=== PATIENT | male | born 1980 | race Caucasian/White ===

== ENCOUNTER 2025-04-08 06:18 | Emergency (ER) | payer SELFPAY ==
[2025-04-08 06:19] VITALS: BP 110/56; PULSE 63; RESP 16; TEMP 37.1; O2SAT 100
[2025-04-08 06:21] VITALS: BP 110/56; PULSE 64; RESP 16; TEMP 37.1; O2SAT 100
--- NOTE | 2025-04-08 06:31 | ED.VIS.DENTA ---
HPI History of Present Illness Chief Complaint: Dental Informant: patient Onset/Context/Timing Onset: Today Context: Gradual Onset Timing: Continuous Quality: Dull, aching Location: Right lower molar Worsened by: Cold liquids Relieved by: - (Nothing) Associated Symptoms Assocated Symptom - Dental: cold sensitivity; Negative for fever, jaw swelling, face swelling or hot sensitivity Narrative Narrative: Patient presents with right lower dental pain that began today. Patient states the pain is dull and aching. Patient states it is over the right lower molars. Patient states it is worse with drinking cold liquids. Patient states nothing makes it better. Patient denies any fevers or chills. Patient denies any jaw swelling. Patient states he does not have a dentist. Patient denies any difficulty breathing or difficulty swallowing. [facility] Medical History (Updated 04/08/25 @ 06:[address] Alan Parker DO) Wtvsi-Ubecjaopk-Styio (WPW) syndrome Home Medications ?Medication ?Instructions ?Recorded ?Last Taken ?Type penicillin V potassium 500 mg 500 mg PO 4X/DAY #40 tabs 04/08/25 Unknown Rx tablet Allergy/AdvReac Type Severity Reaction Status Date / Time No Known Allergies Allergy Verified 04/08/25 06:18 Family History no significant family his Surgical History no surgical history no surgical history Social History (Updated 04/08/25 @ 06:[address] Alan Parker DO) Smoking Status: Current every day smoker tobacco type: cigarettes alcohol intake: current alcohol intake frequency: holidays/special occasions only ROS ROS ED Constitutional Constitutional ED: Denies chills or fever(s) Eyes Eyes: Denies blurry vision or change in vision ENT ENT ED: Denies rhinorrhea or sore throat Cardiovascular Cardiovascular: Denies chest pain or palpitations Respiratory/Chest Respiratory/Chest: Denies cough or dyspnea Gastrointestinal Gastrointestinal: Denies nausea or vomiting Genitourinary Genitourinary ED: Denies dysuria or hematuria Musculoskeletal Musculoskeletal: Denies back pain or neck pain Integumentary Denies abscess or rash Neurologic Neurologic: Denies headache(s) or weakness Allergic/Immunologic Allergic/Immunologic ED: Denies mouth swelling or urticaria EXAM Physical Exam Const Vital Signs: 04/08/25 06:19 04/08/25 06:21 Temperature 98.7 F 98.7 F Temperature Source Oral Oral Pulse Rate 63 64 Respiratory Rate 16 16 Blood Pressure 110/56 L 110/56 L Blood Pressure Mean 74 74 Pulse Ox 100 100 Oxygen Delivery Method Room Air Room Air Positive well nourished and well developed General Appearance ED: well developed and NAD HEENT HEENT Narrative: There is a large dental carry noted over the right lower second molar. There is some gingival edema around this tooth. There is tenderness to palpation over this tooth. There is no sublingual edema or erythema. There is no evidence of Henrik's angina. Oropharynx is clear. Airway is patent. Mouth ED: Yes oral and palatal mucosa normal Mouth: oral and palatal mucosa normal Teeth and Gingiva: caries and gingiva abnormal Positive for gingival edema Throat: posterior oropharynx normal Eyes PERRL and EOMs intact bilaterally Neck supple and no JVD General: Negative for anterior neck swelling, tenderness or submandibular swelling Neuro oriented x3, CN's II-XII intact bilaterally, moves all extremities, no focal motor deficits and no sensory deficits noted Sensorium / Orientation: alert Motor Exam: strength 5/5 throughout Psych mental status grossly normal MDM MDM MDM Narrative Medical decision making narrative: Patient was advised that this is most likely infected dental carry. Patient was given prescription for Pen-Vee K. Patient was instructed to take Tylenol or ibuprofen as needed for pain. Patient was instructed to follow-up with a dentist in 5 to 7 days. Patient was instructed to return if worse in any way. Patient understood and was agreeable with the plan. All questions were answered. Discharge Plan Triage Chief Complaint: Dental ED Provider: Alan Parker Dx/Rx/DC Orders Clinical Impression: Infected dental caries, Tobacco use Instructions: ED Dental Cavity Prescriptions: New penicillin V potassium 500 mg tablet 500 mg PO 4X/DAY Qty: 40 0RF Primary Care Provider: U Referrals: U [Other] [facility] [Outside] - 5-7 Days Print Language: Maori Disposition Disposition: Home, Self Care
[2025-04-08] MEDS: Penicillin Vk 250 MG Tablet 500 MG PO (06:54)
[2025-04-08] MEDS: Ibuprofen 400 MG Tablet 800 MG PO (06:54)
[2025-04-08 06:56] VITALS: BP 117/69; PULSE 62; RESP 16; TEMP 37.1; O2SAT 99
== END 2025-04-08 06:57 | disposition home or self-care (01) ==
LOC: ED 06:55
PROVIDERS: Emergency Provider Emergency Medicine; Visit Provider Emergency Medicine
DX: K02.9 Dental caries, unspecified (principal); F17.210 Nicotine dependence, cigarettes, uncomplicated
CPT/HCPCS: 99282

== ENCOUNTER 2025-05-07 05:42 | Emergency (ER) | payer SELFPAY ==
[2025-05-07] VITALS (7 sets, daily range): BP systolic 112–129; BP diastolic 67–85; PULSE 55–72; RESP 14–24; TEMP 36.5–36.7; O2SAT 98–100; BMI 24.7
--- NOTE | 2025-05-07 05:46 | EKG12_ITS ---
Test Reason : CHEST PAIN Blood Pressure : */* mmHG Vent. Rate : 67 BPM Atrial Rate : 67 BPM P-R Int : 116 ms QRS Dur : 136 ms QT Int : 446 ms P-R-T Axes : 28 38 34 degrees QTcB Int : 471 ms Normal sinus rhythm Rigxs-Frwtvrpgd-Seiql Abnormal ECG Confirmed by BRAN ARIZA, ELIZABETH ([id number]), senior editor MATT MAHARAJ ([id number]) on 05/11/2025 9:02:33 AM Referred By: DOMINIC Confirmed By: ELIZABETH SOTOMAYOR MD
--- NOTE | 2025-05-07 06:01 | EX.ED.DYSGE1 ---
HPI History of Present Illness Chief Complaint: Chest Pain Informant: patient Narrative Narrative: Patient is a 45-year-old male who reports a past medical history of Ztrzb-Arqysulyn-Fqkuj disease but states he does not take any daily medications. He states that he gets up early for work and lay down around 8 PM last night. He states as he was laying down he noticed he had a vague midsternal chest discomfort. He states there was no associated nausea vomiting diaphoresis or shortness of breath. He denied any radiation of the pain. He states it was minimal in nature and he was able to go to sleep. He states he awoke this morning and still noticed a vague sensation of discomfort. He was able to get ready for work and was driving into work when he felt like his symptoms worsened. He states despite the worsening sensation of pressure he did not experience any type of palpitations nausea vomiting diaphoresis or shortness of breath. He states because of the persistent nature and increased severity of symptoms he had concerned this could be cardiac and therefore comes in for evaluation. [facility] Medical History Ihlzc-Hvroyidau-Lswra (WPW) syndrome Home Medications Medication Instructions Recorded Last Taken Type NK 05/07/25 Unknown History Allergy/AdvReac Type Severity Reaction Status Date / Time No Known Allergies Allergy Verified 05/07/25 05:42 Surgical History no surgical history Social History (Updated 04/08/25 @ 06:[address] Alan Parker DO) Smoking Status: Current every day smoker tobacco type: cigarettes alcohol intake: current alcohol intake frequency: holidays/special occasions only ROS ROS ED Constitutional Constitutional ED: Denies chills or fever(s) ENT ENT ED: Denies rhinorrhea or sore throat Cardiovascular Cardiovascular: Reports chest pain; Denies palpitations or racing heartbeat Respiratory/Chest Respiratory/Chest: Reports cough; Denies dyspnea Gastrointestinal Gastrointestinal: Denies abdominal pain, diarrhea, nausea or vomiting Musculoskeletal Musculoskeletal: Denies back pain Integumentary Denies rash Neurologic Neurologic: Denies headache(s) Hematologic/Lymphatic Hematologic/Lymphatic: Denies easy bleeding or easy bruising EXAM Physical Exam Const Vital Signs: 05/07/25 05:44 05/07/25 05:49 05/07/25 06:00 Temperature 97.7 F L Temperature Source Oral Pulse Rate 66 72 67 Respiratory Rate 20 H 24 H 20 H Blood Pressure 129/67 H 115/73 Blood Pressure Mean 87 86 Pulse Ox 99 100 Oxygen Delivery Method Room Air 05/07/25 06:15 05/07/25 06:17 05/07/25 06:30 Temperature Temperature Source Pulse Rate 62 59 L Respiratory Rate 14 21 H Blood Pressure 112/73 117/78 Blood Pressure Mean 85 91 Pulse Ox 100 98 Oxygen Delivery Method Positive well nourished and well developed General Appearance ED: well developed; Negative for pallor HEENT HEENT Narrative: Normocephalic atraumatic No tongue or lip swelling no oral lesions no airway edema or compromise; no signs of infection noted in the posterior pharynx Eyes PERRL and EOMs intact bilaterally General Eye ED: Negative for scleral icterus Neck supple and no JVD Chest Wall Chest Narrative: There is mild pain with palpation in the anterior chest wall near the lower portion of the sternum without bony deformity or subcutaneous emphysema Resp normal respiratory effort and clear to auscultation bilaterally Resp Narrative: No nasal flaring retractions tachypnea or accessory muscle use Cardio regular rate and regular rhythm Rate: other Other Details: Regular rate and rhythm without murmurs rubs or gallop Radial and carotid pulses are equal and symmetric GI non-distended and no masses GI Narrative: Abdomen is soft and nondistended with normal active bowel sounds. There is mild pain with palpation in the midepigastric region without voluntary guarding or rigidity. No pulsatile mass or fluid wave Auscultation: normoactive bowel sounds Palpation: soft Extremity normal to inspection Extremity Narrative: No asymmetric edema no pitting edema negative Homans' sign bilaterally Neuro oriented x3, CN's II-XII intact bilaterally and no sensory deficits noted Sensorium / Orientation: alert Motor Exam: strength 5/5 throughout Psych mental status grossly normal Skin no rashes or lesions noted and no wounds Skin Narrative: No overlying soft tissue changes to suggest trauma or infection General Skin Exam: Negative for jaundice or pallor MDM MDM MDM Narrative Medical decision making narrative: Patient arrived to the ER with stable vitals and reported spontaneous improvement of his chest discomfort. With report of lower midsternal chest discomfort there is concern patient has acute coronary syndrome versus cardiac dysrhythmia versus gastritis versus pancreatitis versus pneumonia or pneumothorax. Secondary to his basic blood work was obtained. Troponin is less than 6 going against ACS especially as patient states he has had pain for multiple hours. 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 Blood work showed no clinically significant electrolyte abnormality. Lipase is normal going against acute pancreatitis. Patient's chest x-ray revealed a small bleb but no signs of pneumothorax or pneumonia or congestive heart. On reevaluation he is resting comfortably and he states he has had spontaneous improvement of his symptoms. Therefore I do not feel there is need for further evaluation in the ER. We did discuss obtaining a delta troponin but patient states that as his initial is as low as the test measures and he is not having discomfort at this time he does not want to wait for the repeat value. 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 History & Record Review Discussion w/independent historian: Patient Lab Data Attestation: I reviewed the patient's lab results. Labs: Laboratory Results - last 24 hr 05/07/25 05:45 WBC 10.0 RBC 5.32 Hgb 17.2 H Hct 49.8 MCV 93.6 MCH 32.3 H MCHC 34.5 RDW Std Deviation 42.1 RDW Coeff of Tiara 12.2 Plt Count 263 MPV 9.9 Immature Gran % (Auto) 0.200 Neut % (Auto) 53.7 Lymph % (Auto) 29.7 [place] % (Auto) 10.2 H Eos % (Auto) 5.4 H Baso % (Auto) 0.8 Absolute Neuts (auto) 5.4 Absolute Lymphs (auto) 2.97 Nucleated RBC % 0 Sodium 139 Potassium 4.2 Chloride 104 Carbon Dioxide 25.5 Anion Gap 10 BUN 18 Creatinine 1.02 Estim Creat Clear Calc 91.46 Est GFR (MDRD) Non-Af 92 BUN/Creatinine Ratio 17.6 Glucose 139 H Calcium 8.6 Magnesium 2.7 H Total Bilirubin 0.36 Direct Bilirubin 0.11 AST 25 ALT 24 Alkaline Phosphatase 63 Troponin T High Sens < 6 Total Protein 6.7 Albumin 4.2 Globulin 2.5 Lipase 31 Radiography Diagnostic Testin view chest x-ray is interpreted by the emergency medicine physician reveals a small bleb along the right middle/upper lobe without acute infiltrate pneumothorax or pleural effusion or widening of the mediastinum Discharge Plan Triage Chief Complaint: Chest Pain ED Provider: Willis Fernandez Dx/Rx/DC Orders Clinical Impression: Uomaw-Werjrmvvg-Crbvl (WPW) syndrome, Nonspecific chest pain, Tobacco use Instructions: Your Heart's Electrical System, ED Chest Pain, Uncertain Cause Prescriptions: No Action NK Stand Alone Forms: Work / School Excuse Primary Care Provider: Care Physician,No Primary Referrals: Emmanuel Jaimes MD [Med Staff - Active Staff] - Care Physician,No Primary [Primary Care Provider] - Activity Restrictions/Additional Instructions: Your workup today did not show any sign of acute/active heart disease/damage. 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 There were no signs of an abnormal rhythm while in the ER. You need to follow-up with cardiology and also have potential referral to an photo technician to discuss potential need for daily medication or radiofrequency ablation to ensure there is no unwanted side effects from your WPW. If your symptoms worsen or you have any further concerns please return to the ER for repeat evaluation Print Language: Nigerien Disposition Disposition: Home, Self Care
--- NOTE | 2025-05-07 06:09 | RAD_ITS ---
PROCEDURE: CHEST PA AND LATERAL 05/07/2025 REASON FOR EXAM: CHEST PAIN TECHNIQUE: CHEST PA AND LATERAL COMPARISON: None FINDINGS: Heart size and mediastinal configuration are within normal limits. There is no focal infiltrate or consolidation. There is no pneumothorax or effusion. There is no acute bony abnormality. There is no visible atherosclerosis. RAD/Chest PA and Lateral IMPRESSION: No acute process is identified in the chest. Reading Location: [facility]
[2025-05-07 06:11] LABS: Hematocrit 49.8 % (40-54); Hemoglobin 17.2 g/dL (13.0-16.5); Immature Granulocytes Count 0.020 X10^3/uL (0.0-0.0); Mean Corp Hgb Conc 34.5 g/dL (32-36); Mean Corpuscular Volume 93.6 fL (80-94); Mean Platelet Vol. 9.9 fl (6.2-12.0); NRBC Flagged by Analyzer 0 % (0-5); Platelet Count 263 K/mm3 (150-450); RBC Distribution Width CV 12.2 % (11.6-14.6); RBC Distribution Width SD 42.1 fl (35.1-43.9); Red Blood Count 5.32 M/mm3 (4.6-6.2); White Blood Count 10.0 K/mm3 (4.4-11.0)
--- OUTSIDE RECORDS SUMMARY | 2025-05-07 06:12 | XMS RPT_ITS | CCD ---
Author Organization [facility] Care Team Providers Care Alkylation Operator Name Role Phone Unavailable Primary Care Provider Unavailabl e SELF Referring Unavailable PHYSICIAN, NONE Primary Care Physician UnavailZaira Whitten Unavailable Unavailable ZOIE GUZMAN DO Attending Unavailable DALE ARIZA, DR HOOPER Consulting Unavailable PHYSICIAN, NONE Primary Care Unavailable PHYSICIAN, NONE Primary Care Unavailable ZOIE GUZMAN DO Attending Unavailable PHYSICIAN, NONE Primary Care Unavailable PAVAN ECHEVARRIA DO Attending Unavailable JASON ARIZA, DR GAO Attending Unavailab le PHYSICIAN, NONE Primary Care Unavailable PHYSICIAN, NONE Primary Care Unavailable JASON ARIZA, DR GAO Attending Unavailab reynold HUNTER MD, DR HOOPER Attending Unavailable DALE ARIZA, DR HOOPER Admitting Unavailable ELLIE PORTER MD Consulting Unavailable PHYSICIAN, NONE Primary Care Unavailable Dr. Alan Parker DO Emergency Provider [phone] Care Physician, No Primary Primary Care Provider Unavailable Alan Parker Attending Unavailable Care Physician, No Primary Primary Care Unava ilable Medications Current Medications Medication Drug Class(es) Dates Sig (Normalized) Sig (Original) aspirin 81 mg delayed release oral tablet (2 sources) Platelet Aggregation Inhibitor, Nonsteroidal Anti-inflammatory Drug Start: 08-08-2024 aspirin 81 mg oral delayed release tablet Dose : 81 mg = 1 tab(s), Oral, qDay, # 30 tab(s), 11 Refill(s), Pharmacy: [id number], 175.3, cm, 08/08/24 8:52:00 EDT, Height, kg, 08/08/24 8:52:00 EDT, Dosing Weight Start Date: 08/08/24 Status: Ordered atorvastatin 40 mg oral tablet (2 sources) HMG-CoA Reductase Inhibitor Start: 08-08-2024 Lipitor 40 mg oral tablet Dose : 40 mg = 1 tab(s), Oral, qDay, # 30 tab(s), 11 Refill(s), Pharmacy: [facility], 175.3, cm, 08/08/24 8:52:00 EDT, Height, kg, 08/08/24 8:52:00 EDT, Dosing Weight Start Date: 08/08/24 Status: Ordered benzonatate 100 mg oral capsule (1 source) Non-narcotic Antitussive Start: 07-02-2024 take 1 capsule by mouth every eight hours as needed benzonatate (TESSALON PERLE) 100 mg capsule Take 1 capsule by mouth three times a day as needed. 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 Disorders of teeth and jaw (2 sources) Dental caries; Translations: [Dental caries, unspecified] Onset: 04-13-2025 04-08-2025 Episodic Nonspecific chest pain (3 sources) Atypical chest pain; Translations: [Chest pain] Onset: 08-08-2024 08-01-2024 Episodic Other upper respiratory infections (1 source) Acute upper respiratory infection; Translations: [Acute upper respiratory infection, unspecified] 07-02-2024 Episodic Residual codes; unclassified (1 source) Tobacco use and exposure - finding; Translations: [Tobacco use] 04-08-2025 Episodic Results Test Name Value Interpretation Reference Range Facility Emergency Department Summary on 04-08-2025 Emergency Department Summary [facility] Medical Records Department [address] [place] [address] Emergency Department Summary 04/08/25 MR#: [id number] Acct: [id number] Name: IRWIN ROMERO Rep #: [id number] : 1980 44 From: Alan Parker DO PCP: Care Physician,No Primary Status:DEP ER Location: ED HPI History of Present Illness Chief Complaint: Dental Informant: patient Onset/Context/Jaelyn corrigan Onset: Today Context: Gradual Onset Timing: Continuous Quality: Dull, aching Location: Right lower molar Worsened by: Cold liquids Relieved by: - (Nothing) Associated Symptoms Assocated Symptom - Dental: cold sensitivity; Negative for fever, jaw swelling, face swelling or hot sensitivity Narrative Narrative: Patient presents with right lower dental pain that began today. Patient states the pain is dull and aching. Patient states it is over the right lower molars. Patient states it is worse with drinking cold liquids. Patient states nothing makes it better. Patient denies any fevers or chills. Patient denies any jaw swelling. Patient states he does not have a dentist. Patient denies any difficulty breathing or difficulty swallowing. [facility] Medical History (Updated 04/08/25 @ 06:[address] Alan Parker, DO) Mpzpa-Cybuxnmtq-Spb te (WPW) syndrome Home Medications ???Medication ???Instructions ???Recorded ???Last Taken ???Type penicillin V potassium 500 mg 500 mg PO 4X/DAY #40 tabs 04/08/25 Unknown Rx tablet Allergy/AdvReac Type Severity Reaction Status Date / Time No Known Allergies Allergy Verified 04/08/25 06:18 Family History no significant family his Surgical History no surgical history no surgical history Social History (Updated 04/08/25 @ 06:[address] Alan Parker, DO) Smoking Status: Current every day smoker tobacco type: cigarettes alcohol intake: current alcohol intake frequency: holidays/special occasions only ROS ROS ED Constitutional Constitutional ED: Denies chills or fever(s) Eyes Eyes: Denies blurry vision or change in vision ENT ENT ED: Denies rhinorrhea or sore throat Cardiovascular Cardiovascular: Denies chest pain or palpitations Respiratory/Chest Respiratory/Chest: Denies cough or dyspnea Gastrointestinal Gastrointestinal: Denies nausea or vomiting Genitourinary Genitourinary ED: Denies dysuria or hematuria Musculoskeletal Musculoskeletal: Denies back pain or neck pain Integumentary Denies abscess or rash Neurologic Neurologic: Denies headache(s) or weakness Allergic/Immunologi c Allergic/Immunologi c ED: Denies mouth swelling or urticaria EXAM Physical Exam Const Vital Signs: 04/08/25 06:19 04/08/25 06:21 Temperature 98.7 F 98.7 F Temperature Source Oral Oral Pulse Rate 63 64 Respiratory Rate 16 16 Blood Pressure 110/56 L 110/56 L Blood Pressure Mean 74 74 Pulse Ox 100 100 Oxygen Delivery Method Room Air Room Air Positive well nourished and well developed General Appearance ED: well developed and NAD HEENT HEENT Narrative: There is a large dental carry noted over the right lower second molar. There is some gingival edema around this tooth. There is tenderness to palpation over this tooth. There is no sublingual edema or erythema. There is no evidence of Henrik's angina. Oropharynx is clear. Airway is patent. Mouth ED: Yes oral and palatal mucosa normal Mouth: oral and palatal mucosa normal Teeth and Gingiva: caries and gingiva abnormal Positive for gingival edema Throat: posterior oropharynx normal Eyes PERRL and EOMs intact bilaterally Neck supple and no JVD General: Negative for anterior neck swelling, tenderness or submandibular swelling Neuro oriented x3, CN's II-XII intact bilaterally, moves all extremities, no focal motor deficits and no sensory deficits noted Sensorium / Orientation: alert Motor Exam: strength 5/5 throughout Psych mental status grossly normal MDM MDM MDM Narrative Medical decision making narrative: Patient was advised that this is most likely infected dental carry. Patient was given prescription for Pen-Vee K. Patient was instructed to take Tylenol or ibuprofen as needed for pain. Patient was instructed to follow-up with a dentist in 5 to 7 days. Patient was instructed to return if worse in any way. Patient understood and was agreeable with the plan. All questions were answered. Discharge Plan Triage Chief Complaint: Dental ED Provider: Alan Parker Dx/Rx/DC Orders Clinical Impression: Infected dental caries, Tobacco use Instructions: ED Dental Cavity Prescriptions: New penicillin V potassium 500 mg tablet 500 mg PO 4X/DAY Qty: 40 0RF Primary Care Provider: U Referrals: U [Other] [facility] [Outside] - 5-7 Days Print Language: Serbian Disposition (more content not included)... Normal [facility] .Auto Diffon 08-08-2024 Basophil, Absolute 0.1 10 3/mcL Normal 0.0-0.2 [facility] Comment on above: Performed By: #### T LORA, CBC, ADIFF, ANEU, MDW, BMP, MG, GFR #### [address] [address] Basophils/100 WBC (Bld) 0.6 % Normal 0.0-2.5 [facility] Comment on above: Performed By: #### T LORA, CBC, ADIFF, ANEU, MDW, BMP, MG, GFR #### [address] [address] Eosinophil, Absolute 0.1 10 3/mcL Normal 0.0-0.7 [facility] Comment on above: Performed By: #### T LORA, CBC, ADIFF, ANEU, MDW, BMP, MG, GFR #### [address] [address] Eosinophils/100 WBC (Bld) 1.1 % Normal 0.0-7.0 [facility] Comment on above: Performed By: #### T LORA, CBC, ADIFF, ANEU, MDW, BMP, MG, GFR #### [address] [address] Lymphocyte, Absolute 1.8 10 3/mcL Normal 0.9-4.3 [facility] Comment on above: Performed By: #### T LORA, CBC, ADIFF, ANEU, MDW, BMP, MG, GFR #### [address] [address] Lymphocytes/100 WBC (Bld) 17.4 % Low 20.0-40.0 [facility] Comment on above: Performed By: #### T LORA, CBC, ADIFF, ANEU, MDW, BMP, MG, GFR #### [address] [address] Monocyte, Absolute 0.6 10 3/mcL Normal 0.1-1.4 [facility] Comment on above: Performed By: #### T LORA, CBC, ADIFF, ANEU, MDW, BMP, MG, GFR #### [address] [address] Monocytes/100 WBC (Bld) 6.1 % Normal 2.0-13.0 [facility] Comment on above: Performed By: #### T LORA, PRIYA, PHAM EDGAR MDW, BMP, MG, GFR #### [address] [address] Neutrophils/100 WBC (Bld) 74.8 % Normal 50.0-75.0 [facility] Comment on above: Performed By: #### T LORA, PRIYA, PHAM EDGAR MDW, BMP, MG, GFR #### [address] [address] .GFRon 08-08-2024 GFR 102 ml/min/1.73sqm Normal [facility] Comment on above: Result Comment: GFR Population mean for , Non- Americans Ages 20-29 = 116 mL/min/1.73 sq.m. Ages 30-39 = 107 mL/min/1.73 sq.m. Ages 40-49 = 99 mL/min/1.73 sq.m. Ages 50-59 = 93 mL/min/1.73 sq.m. Ages 60-69 = 85 mL/min/1.73 sq.m. Ages 70+ = 75 mL/min/1.73 sq.m. Chronic Kidney Disease: Less than 60 mL/min/1.73 square meters End Stage Renal Disease: Less than 15 mL/min/1.73 square meters Performed By: #### C TALA GREER ANEU, MDW, TROPHS, BMP, MG, GFR #### [address] [address] GFR Non- 84 ml/min/1.73sqm Normal [facility] Comment on above: Result Comment: GFR Population mean for , Non- Americans Ages 20-29 = 116 mL/min/1.73 sq.m. Ages 30-39 = 107 mL/min/1.73 sq.m. Ages 40-49 = 99 mL/min/1.73 sq.m. Ages 50-59 = 93 mL/min/1.73 sq.m. Ages 60-69 = 85 mL/min/1.73 sq.m. Ages 70+ = 75 mL/min/1.73 sq.m. Chronic Kidney Disease: Less than 60 mL/min/1.73 square meters End Stage Renal Disease: Less than 15 mL/min/1.73 square meters Performed By: #### C ZOEY, TALA, PHAM, MDW, TROPHS, BMP, MG, GFR #### [address] [address] .MDWon 08-08-2024 Monocyte Distribution Width 15.87 Normal 0.00-20.00 [facility] Comment on above: Result Comment: For ED adult patients suspected of sepsis, MDW<=20.0 does not rule out sepsis or risk of sepsis Performed By: #### C ZOEY, TALA, PHAM, MDW, TROPHS, BMP, MG, GFR #### [address] [address] .NEUABSon 08-08-2024 Neutrophil, Absolute 7.7 10 3/mcL Normal 2.3-8.1 [facility] Comment on above: Performed By: #### C ZOEY, TALA, PHAM, MDW, TROPHS, BMP, MG, GFR #### [address] [address] BMPon 08-08-2024 BUN/Creatinine Ratio 18 ratio Normal 7-27 [facility] Comment on above: Performed By: #### C BC, ADASHISH, ANEU, MDW, TROPHS, BMP, MG, GFR #### [address] [address] Calcium [Mass/Vol] 8.5 mg/dL Normal 8.4-10.2 [facility] Comment on above: Performed By: #### C BC, TALA, ANEU, MDW, TROPHS, BMP, MG, GFR #### [address] [address] Chloride [Moles/Vol] 100 mmol/L Normal 98-107 [facility] Comment on above: Performed By: #### C BC, ADASHISH, ANEU, MDW, TROPHS, BMP, MG, GFR #### [address] [address] CO2 [Moles/Vol] 30 mmol/L High 22-29 [facility] Comment on above: Performed By: #### C TALA GREER ANEU, MDW, TROPHS, BMP, MG, GFR #### [address] [address] Creatinine [Mass/Vol] 0.97 mg/dL Normal 0.70-1.30 [facility] Comment on above: Result Comment: Test ing performed on [employer] Dimension EXL analyzer using a modified kinetic Edyta technique. Performed By: #### C ZOEY, PHAM EDGAR MDW, TROPHS, BMP, MG, GFR #### [address] [address] Electrolyte Balance 6.0 mEq/L Normal 4.0-15.0 [facility] Comment on above: Performed By: #### C TALA GREER ANEU, MDW, TROPHS, BMP, MG, GFR #### [address] [address] Glucose [Mass/Vol] 172 mg/dL High 70-105 [facility] Comment on above: Performed By: #### C TALA GREER ANEU, MDW, TROPHS, BMP, MG, GFR #### [address] [address] Potassium [Moles/Vol] 4.1 mmol/L Normal 3.5-5.1 [facility] Comment on above: Performed By: #### C TALA GREER ANEU, MDW, TROPHS, BMP, MG, GFR #### [address] [address] Sodium [Moles/Vol] 136 mmol/L Normal 136-145 [facility] Comment on above: Performed By: #### C TALA GREER ANEU, MDW, TROPHS, BMP, MG, GFR #### [address] [address] Urea nitrogen [Mass/Vol] 17 mg/dL Normal 7-18 [facility] Comment on above: Performed By: #### C BC, ADIFF, ANEU, MDW, TROPHS, BMP, MG, GFR #### [place] [address] CBCon 08-08-2024 Erythrocyte distribution width (RBC) [Ratio] 13.2 % Normal 11.5-15.5 [facility] Comment on above: Performed By: #### T DARCIHS, CBC, ADIFF, ANEU, MDW, BMP, MG, GFR #### [place] [address] Hematocrit (Bld) [Volume fraction] 50.1 % Normal 40.0-52.0 [facility] Comment on above: Performed By: #### T LORA, CBC, ADIFF, ANEU, MDW, BMP, MG, GFR #### [place] [address] Hgb 17.1 G/dL Normal 13.0-17.5 [facility] Comment on above: Performed By: #### T LORA, CBC, ADIFF, ANEU, MDW, BMP, MG, GFR #### [place] [address] MCH (RBC) [Entitic mass] 32.5 pg Normal 27.0-33.0 [facility] Comment on above: Performed By: #### T LORA, CBC, ADIFF, ANEU, MDW, BMP, MG, GFR #### [place] [address] MCHC 34.1 G/dL Normal 32.0-36.0 [facility] Comment on above: Performed By: #### T LORA, CBC, ADIFF, ANEU, MDW, BMP, MG, GFR #### [place] [address] MCV (RBC) [Entitic vol] 95.3 fL Normal 81.0-100.0 [facility] Comment on above: Performed By: #### T DARCIHS, CBC, ADIFF, ANEU, MDW, BMP, MG, GFR #### [address] [address] Platelet 239 10 3/mcL Normal 150-450 [facility] Comment on above: Performed By: #### T LORA, CBC, ADIFF, ANEU, MDW, BMP, MG, GFR #### [address] [address] Platelet mean volume (Bld) [Entitic vol] 7.8 fL Normal 6.4-10.5 [facility] Comment on above: Performed By: #### T LORA, CBC, ADIFF, ANEU, MDW, BMP, MG, GFR #### [address] [address] RBC 5.26 10 6/mcL Normal 4.50-6.00 [facility] Comment on above: Performed By: #### T LORA, CBC, ADIFF, ANEU, MDW, BMP, MG, GFR #### [address] [address] WBC 10.3 10 3/mcL Normal 4.5-10.8 [facility] Comment on above: Performed By: #### T LORA, CBC, ADIFF, ANEU, MDW, BMP, MG, GFR #### [address] [address] LABORATORYOrdered By: SYSTEM SYSTEM on 08-08-2024 Troponin I.cardiac DL <= 0.01 ng/mL [Mass/Vol] ng/L Normal 0 - 54 ng/L ADM SS Comment on above: Interpretive Data: High Sensitive Troponin I Reference Ranges: Female: 0-34 ng/L Male: 0-54 ng/L Testing performed on SNOBSWAP IM analyzer using direct chemiluminescent technology. Troponin I.cardiac DL <= 0.01 ng/mL [Mass/Vol] ng/L Normal 0 - 76 ng/L AO ADM SS Comment on above: Interpretive Data: H igh Sensitive Troponin I Reference Ranges: Female: 0-51 ng/L Male: 0-76 ng/L Testing performed on [employer] using a homogeneous sandwich chemiluminescent immunoassay based on [employer] technology. Basophils (Bld) [#/Vol] 0.1 103/mcL Normal 0.0 - 0.2 10^3/mcL AO Workflow SS Basophils/100 WBC (Bld) 0.6 % Normal 0.0 - 2.5 % AO Workflow SS Calcium [Mass/Vol] 8.5 mg/dL Normal 8.4 - 10. 2 mg/dL AO ADM SS Chloride [Moles/Vol] 100 mmol/L Normal 98 - 10 7 mmol/L AO ADM SS CO2 [Moles/Vol] 30 mmol/L High 22 - 29 mmol/L AO ADM SS Creatinine [Mass/Vol] 0.97 mg/dL Normal 0.70 - 1.30 mg/dL AO ADM SS Comment on above: Interpretive Data: T esting performed on Siemens Dimension EXL analyzer using a modified kinetic Edyta technique. Electrolyte Balance 6.0 mEq/L Normal 4.0 - 15 .0 mEq/L AO ADM SS Eosinophil, Absolute 0.1 103/mcL Normal 0.0 - 0 .7 10^3/mcL AO Workflow SS Eosinophils/100 WBC (Bld) 1.1 % Normal 0.0 - 7.0 % AO Workflow SS Erythrocyte distribution width (RBC) [Ratio] 13.2 % Normal 11.5 - 15.5 % AO Workflow SS GFR/1.73 sq M.predicted among blacks MDRD (S/P/Bld) [Vol rate/Area] 102 ml/min/1.73sqm Invalid Interpretation Code AO Chemistry S Comment on above: Interpretive Data: GFR Population mean for , Non- Americans Ages 20-29 = 116 mL/min/1.73 sq.m. Ages 30-39 = 107 mL/min/1.73 sq.m. Ages 40-49 = 99 mL/min/1.73 sq.m. Ages 50-59 = 93 mL/min/1.73 sq.m. Ages 60-69 = 85 mL/min/1.73 sq.m. Ages 70+ = 75 mL/min/1.73 sq.m. Chronic Kidney Disease: Less than 60 mL/min/1.73 square meters End Stage Renal Disease: Less than 15 mL/min/1.73 square meters GFR/1.73 sq M.predicted among non-blacks MDRD (S/P/Bld) [Vol rate/Area] 84 ml/min/1.73sqm Invalid Interpretation Code AO Chemistry S Comment on above: Interpretive Data: GFR Population mean for , Non- Americans Ages 20-29 = 116 mL/min/1.73 sq.m. Ages 30-39 = 107 mL/min/1.73 sq.m. Ages 40-49 = 99 mL/min/1.73 sq.m. Ages 50-59 = 93 mL/min/1.73 sq.m. Ages 60-69 = 85 mL/min/1.73 sq.m. Ages 70+ = 75 mL/min/1.73 sq.m. Chronic Kidney Disease: Less than 60 mL/min/1.73 square meters End Stage Renal Disease: Less than 15 mL/min/1.73 square meters Glucose [Mass/Vol] 172 mg/dL High 70 - 105 mg/dL AO ADM SS Hematocrit (Bld) [Volume fraction] 50.1 % Normal 40.0 - 52.0 % AO Workflow SS Hemoglobin (Bld) [Mass/Vol] 17.1 G/dL Normal 13.0 - 17.5 G/dL AO Workflow SS Lymphocytes (Bld) [#/Vol] 1.8 103/mcL Normal 0.9 - 4.3 10^3/mcL AO Workflow SS Lymphocytes/100 WBC (Bld) 17.4 % Low 20.0 - 40.0 % AO Workflow SS Magnesium [Mass/Vol] 2.6 mg/dL High 1.8 - 2 .4 mg/dL AO ADM SS MCH (RBC) [Entitic mass] 32.5 pg Normal 27.0 - 33.0 pg AO Workflow SS MCHC 34.1 G/dL Normal 32.0 - 36.0 G/dL AO Workflow SS MCV (RBC) [Entitic vol] 95.3 fL Normal 81.0 - 100.0 fL AO Workflow SS Monocyte distribution width Auto (Bld) [Entitic vol] 15.87 1 Normal 0.00 - 20.00 AO Workflow SS Comment on above: Result Comment: For ED adult patients suspected of sepsis, MDW<=20.0 does not rule out sepsis or risk of sepsis Monocytes (Bld) [#/Vol] 0.6 103/mcL Normal 0.1 - 1.4 10^3/mcL AO Workflow SS Monocytes/100 WBC (Bld) 6.1 % Normal 2.0 - 13.0 % AO Workflow SS Neutrophils (Bld) [#/Vol] 7.7 103/mcL Normal 2.3 - 8.1 10^3/mcL AO Workflow SS Neutrophils/100 WBC (Bld) 74.8 % Normal 50.0 - 75.0 % AO Workflow SS Platelet mean volume (Bld) [Entitic vol] 7.8 fL Normal 6.4 - 10.5 fL AO Workflow SS Platelets (Bld) [#/Vol] 239 103/mcL Normal 150 - 450 10^3/mcL AO Workflow SS Potassium [Moles/Vol] 4.1 mmol/L Normal 3.5 - 5.1 mmol/L AO ADM SS RBC (Bld) [#/Vol] 5.26 106/mcL Normal 4.50 - 6.0 0 10^6/mcL AO Workflow SS Sodium [Moles/Vol] 136 mmol/L Normal 136 - 145 mmol/L AO ADM SS Troponin I.cardiac DL <= 0.01 ng/mL [Mass/Vol] ng/L Normal 0 - 76 ng/L AO ADM SS Comment on above: Interpretive Data: H igh Sensitive Troponin I Reference Ranges: Female: 0-51 ng/L Male: 0-76 ng/L Testing performed on [employer] using a homogeneous sandwich chemiluminescent immunoassay based on [employer] technology. Urea nitrogen [Mass/Vol] 17 mg/dL Normal 7 - 18 mg/dL AO ADM SS Urea nitrogen/Creatinine [Mass ratio] 18 ratio Normal 7 - 27 ratio AO ADM SS WBC (Bld) [#/Vol] 10.3 103/mcL Normal 4.5 - 10.8 10^3/mcL AO Workflow SS MGon 08-08-2024 Magnesium [Mass/Vol] 2.6 mg/dL High 1.8-2.4 [facility] Comment on above: Performed By: #### C BC, TALA, PHAM, MDW, TROPHS, BMP, MG, GFR #### [facility] [address] [place], [place] [address] [facility] High Sensitivity Troponin I <3 Normal 0-54 [facility] Comment on above: Result Comment: High Sensitive Troponin I Reference Ranges: Female: 0-34 ng/L Male: 0-54 ng/L Testing performed on Parach[employer] analyzer using direct chemiluminescent technology. Performed By: #### T [facility] #### [facility] [address] [place] [address] High Sensitivity Troponin I <4 Normal 0-76 [facility] Comment on above: Result Comment: High Sensitive Troponin I Reference Ranges: Female: 0-51 ng/L Male: 0-76 ng/L Testing performed on Dimension EXL using a homogeneous sandwich chemiluminescent immunoassay based on [employer] technology. Performed By: #### C TALA GREER ANEU, MDW, TROPHS, BMP, MG, GFR #### [place] [address] [place], [place] [address] High Sensitivity Troponin I <4 Normal 0-76 [facility] Comment on above: Result Comment: High Sensitive Troponin I Reference Ranges: Female: 0-51 ng/L Male: 0-76 ng/L Testing performed on Dimension EXL using a homogeneous sandwich chemiluminescent immunoassay based on [employer] technology. Performed By: #### C TALA GREER ANEU, MDW, TROPHS, BMP, MG, GFR #### [place] [address] [place], [place] [address] XR CHEST 1 VIEWon 08-08-2024 XR CHEST 1 VIEW ORIGINAL EXAMINATION: ONE XRAY VIEW OF THE CHEST08/08/2024 4:33 am COMPARISON: Chest radiograph 07/25/2024. HISTORY: ORDERING SYSTEM PROVIDED HISTORY: Reason for Exam: Dizziness, recent bronchitis. chest pain FINDINGS: Cardiomediastinal contours are within normal limits. No focal consolidation or pulmonary edema. No pneumothorax or pleural effusion. No acute osseous abnormalities. IMPRESSION: No acute radiographic process. I have personally reviewed the images of this examination, and agree with the resident's findings and interpretation. Interpreted by: Raj Velásquez MD Preliminary Report By: Sneha Wright Electronically signed By Raj Velásquez MD Dictated Date: 08/08/2024 4:37:13 AM Prelim Date: 08/08/2024 4:38:04 AM Sign Date: 08/08/2024 4:41:17 AM Ordering Provider: ZOIE GUZMAN [facility] .Auto Diffon 07-25-2024 Basophil, Absolute 0.1 10 3/mcL Normal 0.0-0.2 [facility] Comment on above: Performed By: #### C BC, ADIFF, ANEU, MDW, TROPHS, BMP, MG, GFR #### [address] [address] Basophils/100 WBC (Bld) 0.8 % Normal 0.0-2.5 [facility] Comment on above: Performed By: #### C BC, ADIFF, ANEU, MDW, TROPHS, BMP, MG, GFR #### [address] [address] Eosinophil, Absolute 0.1 10 3/mcL Normal 0.0-0.7 [facility] Comment on above: Performed By: #### C BC, ADIFF, ANEU, MDW, TROPHS, BMP, MG, GFR #### [address] [address] Eosinophils/100 WBC (Bld) 1.2 % Normal 0.0-7.0 [facility] Comment on above: Performed By: #### C BC, ADIFF, ANEU, MDW, TROPHS, BMP, MG, GFR #### [address] [address] Lymphocyte, Absolute 1.6 10 3/mcL Normal 0.9-4.3 [facility] Comment on above: Performed By: #### C BC, ADIFF, ANEU, MDW, TROPHS, BMP, MG, GFR #### [address] [address] Lymphocytes/100 WBC (Bld) 20.0 % Normal 20.0-40.0 [facility] Comment on above: Performed By: #### C BC, ADIFF, ANEU, MDW, TROPHS, BMP, MG, GFR #### [address] [address] Monocyte, Absolute 0.7 10 3/mcL Normal 0.1-1.4 [facility] Comment on above: Performed By: #### C BC, ADIFF, ANEU, MDW, TROPHS, BMP, MG, GFR #### [address] [address] Monocytes/100 WBC (Bld) 8.7 % Normal 2.0-13.0 [facility] Comment on above: Performed By: #### C TALA GREER ANEU, MDW, TROPHS, BMP, MG, GFR #### [address] [address] Neutrophils/100 WBC (Bld) 69.3 % Normal 50.0-75.0 [facility] Comment on above: Performed By: #### C TALA GREER ANEU, MDW, TROPHS, BMP, MG, GFR #### [address] [address] .GFRon 07-25-2024 GFR 98 ml/min/1.73sqm Normal [facility] Comment on above: Result Comment: GFR Population mean for , Non- Americans Ages 20-29 = 116 mL/min/1.73 sq.m. Ages 30-39 = 107 mL/min/1.73 sq.m. Ages 40-49 = 99 mL/min/1.73 sq.m. Ages 50-59 = 93 mL/min/1.73 sq.m. Ages 60-69 = 85 mL/min/1.73 sq.m. Ages 70+ = 75 mL/min/1.73 sq.m. Chronic Kidney Disease: Less than 60 mL/min/1.73 square meters End Stage Renal Disease: Less than 15 mL/min/1.73 square meters Performed By: #### C TALA GREER ANEU, MDW, TROPHS, BMP, MG, GFR #### [address] [address] GFR Non- 81 ml/min/1.73sqm Normal [facility] Comment on above: Result Comment: GFR Population mean for , Non- Americans Ages 20-29 = 116 mL/min/1.73 sq.m. Ages 30-39 = 107 mL/min/1.73 sq.m. Ages 40-49 = 99 mL/min/1.73 sq.m. Ages 50-59 = 93 mL/min/1.73 sq.m. Ages 60-69 = 85 mL/min/1.73 sq.m. Ages 70+ = 75 mL/min/1.73 sq.m. Chronic Kidney Disease: Less than 60 mL/min/1.73 square meters End Stage Renal Disease: Less than 15 mL/min/1.73 square meters Performed By: #### C ZOEY, TALA, PHAM, MDW, TROPHS, BMP, MG, GFR #### [address] [address] .MDWon 07-25-2024 Monocyte Distribution Width 16.08 Normal 0.00-20.00 [facility] Comment on above: Result Comment: For ED adult patients suspected of sepsis, MDW<=20.0 does not rule out sepsis or risk of sepsis Performed By: #### C ZOEY, TALA, PHAM, MDW, TROPHS, BMP, MG, GFR #### [address] [address] .NEUABSon 07-25-2024 Neutrophil, Absolute 5.7 10 3/mcL Normal 2.3-8.1 [facility] Comment on above: Performed By: #### C ZOEY, TALA, PHAM, MDW, TROPHS, BMP, MG, GFR #### [address] [address] BMPon 07-25-2024 BUN/Creatinine Ratio 15 ratio Normal 7-27 [facility] Comment on above: Performed By: #### C BC, ADASHISH, PHAM, MDW, TROPHS, BMP, MG, GFR #### [address] [address] Calcium [Mass/Vol] 8.9 mg/dL Normal 8.4-10.2 [facility] Comment on above: Performed By: #### C BC, TALA, PHAM, MDW, TROPHS, BMP, MG, GFR #### [address] [address] Chloride [Moles/Vol] 103 mmol/L Normal 98-107 [facility] Comment on above: Performed By: #### C BC, ADASHISH, ANEU, MDW, TROPHS, BMP, MG, GFR #### [address] [address] CO2 [Moles/Vol] 32 mmol/L High 22-29 [facility] Comment on above: Performed By: #### C TALA GREER ANEU, MDW, TROPHS, BMP, MG, GFR #### [address] [address] Creatinine [Mass/Vol] 1.00 mg/dL Normal 0.70-1.30 [facility] Comment on above: Result Comment: Test ing performed on [employer] Dimension EXL analyzer using a modified kinetic Edyta technique. Performed By: #### C ZOEY, PHAM EDGAR MDW, TROPHS, BMP, MG, GFR #### [address] [address] Electrolyte Balance 6.0 mEq/L Normal 4.0-15.0 [facility] Comment on above: Performed By: #### C TALA GREER ANEU, MDW, TROPHS, BMP, MG, GFR #### [address] [address] Glucose [Mass/Vol] 110 mg/dL High 70-105 [facility] Comment on above: Performed By: #### C TALA GREER ANEU, MDW, TROPHS, BMP, MG, GFR #### [address] [address] Potassium [Moles/Vol] 4.8 mmol/L Normal 3.5-5.1 [facility] Comment on above: Performed By: #### C TALA GREER ANEU, MDW, TROPHS, BMP, MG, GFR #### [address] [address] Sodium [Moles/Vol] 141 mmol/L Normal 136-145 [facility] Comment on above: Performed By: #### C TALA GREER ANEU, MDW, TROPHS, BMP, MG, GFR #### [address] [address] Urea nitrogen [Mass/Vol] 15 mg/dL Normal 7-18 [facility] Comment on above: Performed By: #### C BC, ADIFF, ANEU, MDW, TROPHS, BMP, MG, GFR #### [address] [address] CBCon 07-25-2024 Erythrocyte distribution width (RBC) [Ratio] 12.9 % Normal 11.5-15.5 [facility] Comment on above: Performed By: #### C BC, ADIFF, ANEU, MDW, TROPHS, BMP, MG, GFR #### [place] [address] Hematocrit (Bld) [Volume fraction] 47.2 % Normal 40.0-52.0 [facility] Comment on above: Performed By: #### C BC, ADIFF, ANEU, MDW, TROPHS, BMP, MG, GFR #### [place] [address] Hgb 16.3 G/dL Normal 13.0-17.5 [facility] Comment on above: Performed By: #### C BC, ADIFF, ANEU, MDW, TROPHS, BMP, MG, GFR #### [place] [address] MCH (RBC) [Entitic mass] 32.9 pg Normal 27.0-33.0 [facility] Comment on above: Performed By: #### C BC, ADIFF, ANEU, MDW, TROPHS, BMP, MG, GFR #### [place] [address] MCHC 34.6 G/dL Normal 32.0-36.0 [facility] Comment on above: Performed By: #### C BC, ADIFF, ANEU, MDW, TROPHS, BMP, MG, GFR #### [place] [address] MCV (RBC) [Entitic vol] 95.1 fL Normal 81.0-100.0 [facility] Comment on above: Performed By: #### C BC, ADIFF, ANEU, MDW, TROPHS, BMP, MG, GFR #### [address] [place], [place] [address] Platelet 228 10 3/mcL Normal 150-450 [facility] Comment on above: Performed By: #### C BC, ADIFF, ANEU, MDW, TROPHS, BMP, MG, GFR #### [address] [place], [place] [address] Platelet mean volume (Bld) [Entitic vol] 8.1 fL Normal 6.4-10.5 [facility] Comment on above: Performed By: #### C BC, ADIFF, ANEU, MDW, TROPHS, BMP, MG, GFR #### [address] [place], [place] [address] RBC 4.96 10 6/mcL Normal 4.50-6.00 [facility] Comment on above: Performed By: #### C BC, ADIFF, ANEU, MDW, TROPHS, BMP, MG, GFR #### [address] [address] WBC 8.2 10 3/mcL Normal 4.5-10.8 [facility] Comment on above: Performed By: #### C BC, ADIFF, ANEU, MDW, TROPHS, BMP, MG, GFR #### [address] [address] DIMERon 07-25-2024 D-Dimer <200 Normal 0-230 [facility] Comment on above: Result Comment: DDN: Results reported in D-DU ng/mL. Negative for D-dimer. DVT/PE is highly unlikely. Note: False negative results may be seen in patients on anticoagulant therapy. The result of the D-Dimer test should be evaluated in the context of all the clinical and laboratory data available. In those instances where the laboratory result does not agree with the clinical evaluation, additional tests should be performed accordingly. If the D-Dimer result is used to exclude DVT or PE, the recommended cutoff value is less than 230 ng/mL. The D-Dimer result should not be used alone to rule in DVT/PE, but should be used in conjunction with a clinical pretest probability (PTP)assessment model to exclude venous thromboembolism (VTE) in outpatients suspected of deep venous thrombosis (DVT) and pulmonary embolism (PE). Performed By: #### C ZOEY, TALA, PHAM, MDW, TROPHS, BMP, MG, GFR #### [id number] [place], [place] [address] LABORATORYOrdered By: SYSTEM SYSTEM on 07-25-2024 Fibrin D-dimer DDU (PPP) [Mass/Vol] ng/mL D-DU Normal 0 - 230 ng/mL D-DU AO [facility] Comment on above: Result Comment: DDN: Results reported in D-DU ng/mL. Negative for D-dimer. DVT/PE is highly unlikely. Note: False negative results may be seen in patients on anticoagulant therapy. Interpretive Data: T he result of the D-Dimer test should be evaluated in the context of all the clinical and laboratory data available. In those instances where the laboratory result does not agree with the clinical evaluation, additional tests should be performed accordingly. If the D-Dimer result is used to exclude DVT or PE, the recommended cutoff value is less than 230 ng/mL. The D-Dimer result should not be used alone to rule in DVT/PE, but should be used in conjunction with a clinical pretest probability (PTP)assessment model to exclude venous thromboembolism (VTE) in outpatients suspected of deep venous thrombosis (DVT) and pulmonary embolism (PE). Troponin I.cardiac DL <= 0.01 ng/mL [Mass/Vol] ng/L Normal 0 - 76 ng/L AO ADM SS Comment on above: Interpretive Data: H igh Sensitive Troponin I Reference Ranges: Female: 0-51 ng/L Male: 0-76 ng/L Testing performed on [employer] using a homogeneous sandwich chemiluminescent immunoassay based on [employer] technology. Basophils (Bld) [#/Vol] 0.1 103/mcL Normal 0.0 - 0.2 10^3/mcL AO Workflow SS Basophils/100 WBC (Bld) 0.8 % Normal 0.0 - 2.5 % AO Workflow SS Calcium [Mass/Vol] 8.9 mg/dL Normal 8.4 - 10. 2 mg/dL AO ADM SS Chloride [Moles/Vol] 103 mmol/L Normal 98 - 10 7 mmol/L AO ADM SS CO2 [Moles/Vol] 32 mmol/L High 22 - 29 mmol/L AO ADM SS Creatinine [Mass/Vol] 1.00 mg/dL Normal 0.70 - 1.30 mg/dL AO ADM SS Comment on above: Interpretive Data: T esting performed on Siemens Dimension EXL analyzer using a modified kinetic Edyta technique. Electrolyte Balance 6.0 mEq/L Normal 4.0 - 15 .0 mEq/L AO ADM SS Eosinophil, Absolute 0.1 103/mcL Normal 0.0 - 0 .7 10^3/mcL AO Workflow SS Eosinophils/100 WBC (Bld) 1.2 % Normal 0.0 - 7.0 % AO Workflow SS Erythrocyte distribution width (RBC) [Ratio] 12.9 % Normal 11.5 - 15.5 % AO Workflow SS GFR/1.73 sq M.predicted among blacks MDRD (S/P/Bld) [Vol rate/Area] 98 ml/min/1.73sqm Invalid Interpretation Code AO Chemistry S Comment on above: Interpretive Data: GFR Population mean for , Non- Americans Ages 20-29 = 116 mL/min/1.73 sq.m. Ages 30-39 = 107 mL/min/1.73 sq.m. Ages 40-49 = 99 mL/min/1.73 sq.m. Ages 50-59 = 93 mL/min/1.73 sq.m. Ages 60-69 = 85 mL/min/1.73 sq.m. Ages 70+ = 75 mL/min/1.73 sq.m. Chronic Kidney Disease: Less than 60 mL/min/1.73 square meters End Stage Renal Disease: Less than 15 mL/min/1.73 square meters GFR/1.73 sq M.predicted among non-blacks MDRD (S/P/Bld) [Vol rate/Area] 81 ml/min/1.73sqm Invalid Interpretation Code AO Chemistry S Comment on above: Interpretive Data: GFR Population mean for , Non- Americans Ages 20-29 = 116 mL/min/1.73 sq.m. Ages 30-39 = 107 mL/min/1.73 sq.m. Ages 40-49 = 99 mL/min/1.73 sq.m. Ages 50-59 = 93 mL/min/1.73 sq.m. Ages 60-69 = 85 mL/min/1.73 sq.m. Ages 70+ = 75 mL/min/1.73 sq.m. Chronic Kidney Disease: Less than 60 mL/min/1.73 square meters End Stage Renal Disease: Less than 15 mL/min/1.73 square meters Glucose [Mass/Vol] 110 mg/dL High 70 - 105 mg/dL AO ADM SS Hematocrit (Bld) [Volume fraction] 47.2 % Normal 40.0 - 52.0 % AO Workflow SS Hemoglobin (Bld) [Mass/Vol] 16.3 G/dL Normal 13.0 - 17.5 G/dL AO Workflow SS Lymphocytes (Bld) [#/Vol] 1.6 103/mcL Normal 0.9 - 4.3 10^3/mcL AO Workflow SS Lymphocytes/100 WBC (Bld) 20.0 % Normal 20.0 - 40.0 % AO Workflow SS Magnesium [Mass/Vol] 2.7 mg/dL High 1.8 - 2 .4 mg/dL AO ADM SS MCH (RBC) [Entitic mass] 32.9 pg Normal 27.0 - 33.0 pg AO Workflow SS MCHC 34.6 G/dL Normal 32.0 - 36.0 G/dL AO Workflow SS MCV (RBC) [Entitic vol] 95.1 fL Normal 81.0 - 100.0 fL AO Workflow SS Monocyte distribution width Auto (Bld) [Entitic vol] 16.08 1 Normal 0.00 - 20.00 AO Workflow SS Comment on above: Result Comment: For ED adult patients suspected of sepsis, MDW<=20.0 does not rule out sepsis or risk of sepsis Monocytes (Bld) [#/Vol] 0.7 103/mcL Normal 0.1 - 1.4 10^3/mcL AO Workflow SS Monocytes/100 WBC (Bld) 8.7 % Normal 2.0 - 13.0 % AO Workflow SS Neutrophils (Bld) [#/Vol] 5.7 103/mcL Normal 2.3 - 8.1 10^3/mcL AO Workflow SS Neutrophils/100 WBC (Bld) 69.3 % Normal 50.0 - 75.0 % AO Workflow SS Platelet mean volume (Bld) [Entitic vol] 8.1 fL Normal 6.4 - 10.5 fL AO Workflow SS Platelets (Bld) [#/Vol] 228 103/mcL Normal 150 - 450 10^3/mcL AO Workflow SS Potassium [Moles/Vol] 4.8 mmol/L Normal 3.5 - 5.1 mmol/L AO ADM SS RBC (Bld) [#/Vol] 4.96 106/mcL Normal 4.50 - 6.0 0 10^6/mcL AO Workflow SS Sodium [Moles/Vol] 141 mmol/L Normal 136 - 145 mmol/L AO ADM SS Troponin I.cardiac DL <= 0.01 ng/mL [Mass/Vol] ng/L Normal 0 - 76 ng/L AO ADM SS Comment on above: Interpretive Data: H igh Sensitive Troponin I Reference Ranges: Female: 0-51 ng/L Male: 0-76 ng/L Testing performed on Dimension EXL using a homogeneous sandwich chemiluminescent immunoassay based on [employer] technology. Urea nitrogen [Mass/Vol] 15 mg/dL Normal 7 - 18 mg/dL AO ADM SS Urea nitrogen/Creatinine [Mass ratio] 15 ratio Normal 7 - 27 ratio AO ADM SS WBC (Bld) [#/Vol] 8.2 103/mcL Normal 4.5 - 10.8 10^3/mcL AO Workflow SS MGon 07-25-2024 Magnesium [Mass/Vol] 2.7 mg/dL High 1.8-2.4 [facility] Comment on above: Performed By: #### C TALA GREER ANEU, MDW, TROPHS, BMP, MG, GFR #### [address] [address] [facility] 07-25-2024 High Sensitivity Troponin I <4 Normal [address] [place] [address] Comment on above: Result Comment: High Sensitive Troponin I Reference Ranges: Female: 0-51 ng/L Male: 0-76 ng/L Testing performed on Dimension EX using a homogeneous sandwich chemiluminescent immunoassay based on [employer] technology. Performed By: #### C TALA GREER ANEU, MDW, TROPHS, BMP, MG, GFR #### [address] [address] High Sensitivity Troponin I <4 Normal [address] [place] [address] Comment on above: Result Comment: High Sensitive Troponin I Reference Ranges: Female: 0-51 ng/L Male: 0-76 ng/L Testing performed on Dimension EXL using a homogeneous sandwich chemiluminescent immunoassay based on LOC[employer] technology. Performed By: #### C TALA GREER ANEU, MDW, TROPHS, BMP, MG, GFR #### [id number] [place], [place] [address] XR CHEST 1 VIEWon 07-25-2024 XR CHEST 1 VIEW ORIGINAL EXAMINATION: ONE XRAY VIEW OF THE CHEST TECHNIQUE: One view AP upright COMPARISON: Chest 07/01/2024 HISTORY: ORDERING SYSTEM PROVIDED HISTORY: Reason for Exam: chest pain FINDINGS: Support devices: None Cardiomediastinal: The heart size is normal. Lungs: No pulmonary edema, consolidation or a large pleural effusion. Redemonstrated deepening of the costophrenic sulci. Pneumothorax: None Osseous: No acute osseous pathology. IMPRESSION: No acute pulmonary disease. Interpreted by: Christian Dodd MD Preliminary Report By: Christian Dodd MD Electronically signed By Christian Dodd MD Dictated Date: 07/25/2024 8:48:51 AM Prelim Date: 07/25/2024 8:50:44 AM Sign Date: 07/25/2024 8:50:44 AM Ordering Provider: ZOIE García [facility] 07-02-2024 [facility] ---- DIANAIRWIN Jeronimo ([id number]) 1980 M Date Time Provider Department 07/02/24 10:45 AM CANDIDO EUBANKS [facility] During your visit today, we recorded the following information about you: Temperature Pulse Respiration Blood pressure 98.1 degrees 66/minute 16/minute 102/60 Weight 75 kg Candido Eubanks PA 07/02/2024 11:00 AM Signed This note was created using NoteWriter. Subjective Irwin Romero is a 44 year old male. HPI 44-year-old male presents for cough, chest congestion x 3 days. Patient states he started getting a cough a few days ago. He was seen in [facility] last night and had an EKG and a chest x-ray which he states were normal. He was told he has bronchitis. He was not given any medication for symptoms. Patient states that he went to work today and was sent home due to his coughing. He needs a work note for today. Patient denies any chest pain or shortness of breath. No nasal congestion. No sore throat. No fevers. No vomiting or diarrhea. He has not taken anything [id number] for symptoms. No other complaint. No past medical history on file. No past surgical history on file. ALLERGIES Patient has no known allergies. MEDICATIONS benzonatate (TESSALON PERLE) 100 mg capsule Take 1 capsule by mouth three times a day as needed. No family history on file. Review of Systems Constitutional: Negative for chills and fever. HENT: Negative for congestion and sore throat. Respiratory: Positive for cough. Negative for shortness of breath. Gastrointestinal: Negative for diarrhea and vomiting. Objective BP 102/60 Pulse 66 Temp 36.7 ?C (98.1 ?F) Resp 16 Wt 75 kg (165 lb 5.5 oz) SpO2 97% Physical Exam Vitals and nursing note reviewed. Constitutional: General: He is not in acute distress. Appearance: Normal appearance. He is not toxic-appearing. HENT: Right Ear: Tympanic membrane and ear canal normal. Left Ear: Tympanic membrane and ear canal normal. Nose: Nose normal. Mouth/Throat: Mouth: Mucous membranes are moist. Eyes: Conjunctiva/sclera: Conjunctivae normal. Cardiovascular: Rate and Rhythm: Normal rate and regular rhythm. Pulmonary: Effort: Pulmonary effort is normal. Breath sounds: Normal breath sounds. No wheezing, rhonchi or rales. Skin: General: Skin is warm and dry. Neurological: Mental Status: He is alert. Assessment and Plan ASSESSMENT/PLAN: 1. URI, acute - ICD9: 465.9, ICD10: J06.9 - Discussed viral etiology and rationale for treatment. - Symptomatic treatment with prn analgesia - Supportive care with fluids and rest -Rx for Tessalon Perles -Declines COVID swab -Work note for today Diagnosis and treatment plan were discussed and questions were answered to the patient's satisfaction. Pt acknowledged understanding of concepts and follow up plan. Specific signs and symptoms that would indicate the need for higher level of care were discussed in detail warranting prompt ER evaluation. TYLER Chacon Referring Provider: SELF [[id number]] Allergies As of Date: 07/02/2024 (No Known Allergies) Date Reviewed: 07/02/2024 Reviewed by: Desire Silver MA - Fully Assessed Reason for Visit: Chest Congestion [236] Cmt: cough, seen in [facility] last night, given work excuse for yesterday, still not feeling well requesting work excuse for today Primary Visit Diagnosis:URI, acute [J06.9] Order(s):benzonatat e (TESSALON PERLE) 100 mg capsuleTake 1 capsule by mouth three times a day as needed.Disp: 21 capsuleRfl: 0 Prescriptions as of 07/02/2024 - benzonatate (TESSALON PERLE) 100 mg capsule Take 1 capsule by mouth three times a day as needed. Problem List As Of Date: 07/02/2024 (None) Prescriptions ordered this encounter Disp Refills Start End BENZONATATE 100 MG CAPSULE 21 c* 0 07/02/2024 Route: ORAL Sig: Take 1 capsule by mouth three times a day as needed. Letter Text Encounter Status:Closed by CANDIDO EUBANKS on 07/02/24 Normal [facility] [place] [facility] .Auto Diffon 07-01-2024 Basophil, Absolute 0.1 10 3/mcL Normal 0.0-0.2 [facility] Comment on above: Performed By: #### C TALA GREER ANEU, MDW, TROPHS, BMP, MG, GFR #### [address] [address] Basophils/100 WBC (Bld) 1.0 % Normal 0.0-2.5 [facility] Comment on above: Performed By: #### C TALA GREER ANEU, MDW, TROPHS, BMP, MG, GFR #### [address] [address] Eosinophil, Absolute 0.4 10 3/mcL Normal 0.0-0.4 [facility] Comment on above: Performed By: #### C TALA GREER ANEU, MDW, TROPHS, BMP, MG, GFR #### [address] [address] Eosinophils/100 WBC (Bld) 4.5 % Normal 0.0-7.0 [facility] Comment on above: Performed By: #### C BC, ADASHISH, ANEU, MDW, TROPHS, BMP, MG, GFR #### [address] [address] Lymphocyte, Absolute 2.2 10 3/mcL Normal 0.8-3.9 [facility] Comment on above: Performed By: #### C BC, ADIFF, ANEU, MDW, TROPHS, BMP, MG, GFR #### [address] [address] Lymphocytes/100 WBC (Bld) 25.1 % Normal 10.0-50.0 [facility] Comment on above: Performed By: #### C BC, ADASHISH, ANEU, MDW, TROPHS, BMP, MG, GFR #### [address] [address] Monocyte, Absolute 0.9 10 3/mcL Normal 0.2-1.0 [facility] Comment on above: Performed By: #### C BC, ADASHISH, PHAM, MDW, TROPHS, BMP, MG, GFR #### [address] [address] Monocytes/100 WBC (Bld) 10.8 % Normal 1.7-13.0 [facility] Comment on above: Performed By: #### C BC, ADASHISH, ANEU, MDW, TROPHS, BMP, MG, GFR #### [address] [address] Neutrophils/100 WBC (Bld) 58.6 % Normal 37.0-80.0 [facility] Comment on above: Performed By: #### C BC, ADASHISH, ANEU, MDW, TROPHS, BMP, MG, GFR #### [address] [address] .GFRon 07-01-2024 GFR 100 ml/min/1.73sqm Normal [facility] Comment on above: Result Comment: GFR Population mean for , Non- Americans Ages 20-29 = 116 mL/min/1.73 sq.m. Ages 30-39 = 107 mL/min/1.73 sq.m. Ages 40-49 = 99 mL/min/1.73 sq.m. Ages 50-59 = 93 mL/min/1.73 sq.m. Ages 60-69 = 85 mL/min/1.73 sq.m. Ages 70+ = 75 mL/min/1.73 sq.m. Chronic Kidney Disease: Less than 60 mL/min/1.73 square meters End Stage Renal Disease: Less than 15 mL/min/1.73 square meters Performed By: #### C TALA GREER ANEU, MDW, TROPHMady, BMP, MG, GFR #### [address] [place], [place] [address] GFR Non- 82 ml/min/1.73sqm [facility] Comment on above: Result Comment: GFR Population mean for , Non- Americans Ages 20-29 = 116 mL/min/1.73 sq.m. Ages 30-39 = 107 mL/min/1.73 sq.m. Ages 40-49 = 99 mL/min/1.73 sq.m. Ages 50-59 = 93 mL/min/1.73 sq.m. Ages 60-69 = 85 mL/min/1.73 sq.m. Ages 70+ = 75 mL/min/1.73 sq.m. Chronic Kidney Disease: Less than 60 mL/min/1.73 square meters End Stage Renal Disease: Less than 15 mL/min/1.73 square meters Performed By: #### C TALA GREER ANEU, MDW, TROPHS, BMP, MG, GFR #### [address] [place], [place] [address] .MDWon 07-01-2024 Monocyte Distribution Width 17.55 Normal 0.00-20.00 [facility] Comment on above: Result Comment: For ED adult patients suspected of sepsis, MDW<=20.0 does not rule out sepsis or risk of sepsis Performed By: #### C BC, ADIFF, ANEU, MDW, TROPHS, BMP, MG, GFR #### [address] [address] .NEUABSon 07-01-2024 Neutrophil, Absolute 5.1 10 3/mcL Normal 2.9-6.2 [facility] Comment on above: Performed By: #### C BC, ADASHISH, PHAM, MDW, TROPHS, BMP, MG, GFR #### [address] [address] BMPon 07-01-2024 BUN/Creatinine Ratio 15 ratio Normal 7-27 [facility] Comment on above: Performed By: #### C BC, TALA, PHAM, MDW, TROPHS, BMP, MG, GFR #### [address] [address] Calcium [Mass/Vol] 8.3 mg/dL Low 8.4-10.2 [facility] Comment on above: Performed By: #### C BC, TALA, PHAM, MDW, TROPHS, BMP, MG, GFR #### [address] [address] Chloride [Moles/Vol] 105 mmol/L Normal 98-107 [facility] Comment on above: Performed By: #### C BC, ADASHISH, PHAM, MDW, TROPHS, BMP, MG, GFR #### [address] [address] CO2 [Moles/Vol] 28 mmol/L Normal 22-29 [facility] Comment on above: Performed By: #### C BC, ADASHISH, ANEU, MDW, TROPHS, BMP, MG, GFR #### [address] [address] Creatinine [Mass/Vol] 0.99 mg/dL Normal 0.70-1.30 [facility] Comment on above: Result Comment: Test ing performed on Siemens Dimension EXL analyzer using a modified kinetic Edyta technique. Performed By: #### C BC, ADASHISH, PHAM, MDW, TROPHS, BMP, MG, GFR #### [address] [address] Electrolyte Balance 10.0 mEq/L Normal 4.0-15.0 [facility] Comment on above: Performed By: #### C ZOEY, TALA, PHAM, W, TROPHS, BMP, MG, GFR #### [address] [address] Glucose [Mass/Vol] 109 mg/dL High 70-105 [facility] Comment on above: Performed By: #### C ZOEY, TALA, PHAM, MDW, TROPHS, BMP, MG, GFR #### [address] [address] Potassium [Moles/Vol] 4.3 mmol/L Normal 3.5-5.1 [facility] Comment on above: Performed By: #### C ZOEY, TALA, PHAM, MDW, TROPHS, BMP, MG, GFR #### [address] [address] Sodium [Moles/Vol] 143 mmol/L Normal 136-145 [facility] Comment on above: Performed By: #### C ZOEY, TALA, PHAM, W, TROPHS, BMP, MG, GFR #### [address] [address] Urea nitrogen [Mass/Vol] 15 mg/dL Normal 7-18 [facility] Comment on above: Performed By: #### C ZOEY, PHAM EDGAR, MDW, TROPHS, BMP, MG, GFR #### [address] [address] CBCon 07-01-2024 Erythrocyte distribution width (RBC) [Ratio] 13.0 % Normal 11.5-14.5 [facility] Comment on above: Performed By: #### C ZOEY, TALA, PHAM, MDW, TROPHS, BMP, MG, GFR #### [address] [address] Hematocrit (Bld) [Volume fraction] 49.6 % Normal 42.0-52.0 [facility] Comment on above: Performed By: #### C BC, ADIFF, ANEU, MDW, TROPHS, BMP, MG, GFR #### [address] [address] Hgb 16.9 G/dL Normal 14.0-18.0 [facility] Comment on above: Performed By: #### C BC, ADIFF, ANEU, MDW, TROPHS, BMP, MG, GFR #### [address] [place] [address] MCH (RBC) [Entitic mass] 32.6 pg High 27.0-31.2 [facility] Comment on above: Performed By: #### C BC, ADIFF, ANEU, MDW, TROPHS, BMP, MG, GFR #### [address] [place] [address] MCHC 34.1 G/dL Normal 31.8-35.4 [facility] Comment on above: Performed By: #### C BC, ADIFF, ANEU, MDW, TROPHS, BMP, MG, GFR #### [address] [address] MCV (RBC) [Entitic vol] 95.7 fL High 80.0-94.0 [facility] Comment on above: Performed By: #### C BC, ADIFF, ANEU, MDW, TROPHS, BMP, MG, GFR #### [address] [address] Platelet 217 10 3/mcL Normal 130-400 [facility] Comment on above: Performed By: #### C BC, ADIFF, ANEU, MDW, TROPHS, BMP, MG, GFR #### [address] [address] Platelet mean volume (Bld) [Entitic vol] 8.1 fL Normal 7.4-10.4 [facility] Comment on above: Performed By: #### C BC, ADIFF, ANEU, MDW, TROPHS, BMP, MG, GFR #### [place] [address] RBC 5.18 10 6/mcL Normal 4.04-6.13 [facility] Comment on above: Performed By: #### C TALA GREER ANEU, MDW, TROPHS, BMP, MG, GFR #### [id number] [place], [place] [address] WBC 8.7 10 3/mcL Normal 4.6-10.8 [facility] Comment on above: Performed By: #### C TALA GREER ANEU, MDW, TROPHS, BMP, MG, GFR #### [id number] [place], [place] [address] LABORATORYOrdered By: SYSTEM SYSTEM on 07-01-2024 Basophils (Bld) [#/Vol] 0.1 103/mcL Normal 0.0 - 0.2 10^3/mcL AO Workflow SS Basophils/100 WBC (Bld) 1.0 % Normal 0.0 - 2.5 % AO Workflow SS Calcium [Mass/Vol] 8.3 mg/dL Low 8.4 - 10. 2 mg/dL AO ADM SS Chloride [Moles/Vol] 105 mmol/L Normal 98 - 10 7 mmol/L AO ADM SS CO2 [Moles/Vol] 28 mmol/L Normal 22 - 29 mmol/L AO ADM SS Creatinine [Mass/Vol] 0.99 mg/dL Normal 0.70 - 1.30 mg/dL AO ADM SS Comment on above: Interpretive Data: T esting performed on Siemens Dimension EXL analyzer using a modified kinetic Edyta technique. Electrolyte Balance 10.0 mEq/L Normal 4.0 - 15 .0 mEq/L AO ADM SS Eosinophil, Absolute 0.4 103/mcL Normal 0.0 - 0 .4 10^3/mcL AO Workflow SS Eosinophils/100 WBC (Bld) 4.5 % Normal 0.0 - 7.0 % AO Workflow SS Erythrocyte distribution width (RBC) [Ratio] 13.0 % Normal 11.5 - 14.5 % AO Workflow SS GFR/1.73 sq M.predicted among blacks MDRD (S/P/Bld) [Vol rate/Area] 100 ml/min/1.73sqm Invalid Interpretation Code AO Chemistry S Comment on above: Interpretive Data: GFR Population mean for , Non- Americans Ages 20-29 = 116 mL/min/1.73 sq.m. Ages 30-39 = 107 mL/min/1.73 sq.m. Ages 40-49 = 99 mL/min/1.73 sq.m. Ages 50-59 = 93 mL/min/1.73 sq.m. Ages 60-69 = 85 mL/min/1.73 sq.m. Ages 70+ = 75 mL/min/1.73 sq.m. Chronic Kidney Disease: Less than 60 mL/min/1.73 square meters End Stage Renal Disease: Less than 15 mL/min/1.73 square meters GFR/1.73 sq M.predicted among non-blacks MDRD (S/P/Bld) [Vol rate/Area] 82 ml/min/1.73sqm Invalid Interpretation Code AO Chemistry S Comment on above: Interpretive Data: GFR Population mean for , Non- Americans Ages 20-29 = 116 mL/min/1.73 sq.m. Ages 30-39 = 107 mL/min/1.73 sq.m. Ages 40-49 = 99 mL/min/1.73 sq.m. Ages 50-59 = 93 mL/min/1.73 sq.m. Ages 60-69 = 85 mL/min/1.73 sq.m. Ages 70+ = 75 mL/min/1.73 sq.m. Chronic Kidney Disease: Less than 60 mL/min/1.73 square meters End Stage Renal Disease: Less than 15 mL/min/1.73 square meters Glucose [Mass/Vol] 109 mg/dL High 70 - 105 mg/dL AO ADM SS Hematocrit (Bld) [Volume fraction] 49.6 % Normal 42.0 - 52.0 % AO Workflow SS Hemoglobin (Bld) [Mass/Vol] 16.9 G/dL Normal 14.0 - 18.0 G/dL AO Workflow SS Lymphocytes (Bld) [#/Vol] 2.2 103/mcL Normal 0.8 - 3.9 10^3/mcL AO Workflow SS Lymphocytes/100 WBC (Bld) 25.1 % Normal 10.0 - 50.0 % AO Workflow SS MCH (RBC) [Entitic mass] 32.6 pg High 27.0 - 31.2 pg AO Workflow SS MCHC 34.1 G/dL Normal 31.8 - 35.4 G/dL AO Workflow SS MCV (RBC) [Entitic vol] 95.7 fL High 80.0 - 94.0 fL AO Workflow SS Monocyte distribution width Auto (Bld) [Entitic vol] 17.55 1 Normal 0.00 - 20.00 AO Workflow SS Comment on above: Result Comment: For ED adult patients suspected of sepsis, MDW<=20.0 does not rule out sepsis or risk of sepsis Monocytes (Bld) [#/Vol] 0.9 103/mcL Normal 0.2 - 1.0 10^3/mcL AO Workflow SS Monocytes/100 WBC (Bld) 10.8 % Normal 1.7 - 13.0 % AO Workflow SS Neutrophils (Bld) [#/Vol] 5.1 103/mcL Normal 2.9 - 6.2 10^3/mcL AO Workflow SS Neutrophils/100 WBC (Bld) 58.6 % Normal 37.0 - 80.0 % AO Workflow SS Platelet mean volume (Bld) [Entitic vol] 8.1 fL Normal 7.4 - 10.4 fL AO Workflow SS Platelets (Bld) [#/Vol] 217 103/mcL Normal 130 - 400 10^3/mcL AO Workflow SS Potassium [Moles/Vol] 4.3 mmol/L Normal 3.5 - 5.1 mmol/L AO ADM SS RBC (Bld) [#/Vol] 5.18 106/mcL Normal 4.04 - 6.1 3 10^6/mcL AO Workflow SS Sodium [Moles/Vol] 143 mmol/L Normal 136 - 145 mmol/L AO ADM SS Troponin I.cardiac DL <= 0.01 ng/mL [Mass/Vol] ng/L Normal 0 - 76 ng/L AO ADM SS Comment on above: Interpretive Data: H igh Sensitive Troponin I Reference Ranges: Female: 0-51 ng/L Male: 0-76 ng/L Testing performed on [employer] using a homogeneous sandwich chemiluminescent immunoassay based on [employer] technology. Urea nitrogen [Mass/Vol] 15 mg/dL Normal 7 - 18 mg/dL AO ADM SS Urea nitrogen/Creatinine [Mass ratio] 15 ratio Normal 7 - 27 ratio AO ADM SS WBC (Bld) [#/Vol] 8.7 103/mcL Normal 4.6 - 10.8 10^3/mcL AO Workflow SS TROPHSon 07-01-2024 High Sensitivity Troponin I <4 Normal 0-76 [facility] Comment on above: Result Comment: High Sensitive Troponin I Reference Ranges: Female: 0-51 ng/L Male: 0-76 ng/L Testing performed on [employer] using a homogeneous sandwich chemiluminescent immunoassay based on [employer] technology. Performed By: #### C ZOEY, TALA, PHAM, W, TROPHS, BMP, MG, GFR #### [facility] [address] [place], [place] [address] XR CHEST 2 VIEWSon XR CHEST 2 VIEWS ORIGINAL EXAMINATION: TWO XRAY VIEWS OF THE CHEST 07/01/2024 5:21 am COMPARISON: None. HISTORY: ORDERING SYSTEM PROVIDED HISTORY: Reason for Exam: Chest Pain FINDINGS: The heart size and mediastinal contours are normal. There is no lung infiltrate or edema. No pneumothorax or pleural fluid is present. Skeletal structures are unremarkable. IMPRESSION: No acute cardiopulmonary process. Interpreted by: Raj Velásquez MD Preliminary Report By: Raj Velásquez MD Electronically signed By Raj Velásquez MD Dictated Date: 07/01/2024 5:23:52 AM Prelim Date: 07/01/2024 5:24:43 AM Sign Date: 07/01/2024 5:24:43 AM Ordering Provider: PAVAN ECHEVARRIA [facility] Vital Signs Date Time Vital Sign Value Performing Clinician Facility 04-08-2025 06:56-0400 Body temperature 98.7 [degF] Dr. Alna Parker DO Work Phone: [facility] 04-08-2025 06:56-0400 Diastolic blood pressure 69 mm[Hg] Dr. Alan Parker DO Work Phone: [facility] 04-08-2025 06:56-0400 Heart rate 62 /min Dr. Alan Parker DO Work Phone: [facility] 04-08-2025 06:56-0400 Respiratory rate 16 /min Dr. Alan Parker DO Work Phone: [facility] 04-08-2025 06:56-0400 SaO2% (BldA) [Mass fraction] 99 % Dr. Alan Parker DO Work Phone: [facility] 04-08-2025 06:56-0400 Systolic blood pressure 117 mm[Hg] Dr. Alan Parker DO Work Phone: [facility] 04-08-2025 06:19-0400 Body height 175.[address] Alan Parker DO Work Phone: [facility] 08-08-2024 10:38-0400 Blood Pressure Cuff Size DR RUFUS HUNTER MD [address] [place] [address] 08-08-2024 10:38-[address] RUFUS HUNTER MD [address] [place] [address] 08-08-2024 10:38-[address] RUFUS HUNTER MD [address] [place] [address] 08-08-2024 10:38-0400 Body temperature 97.7 [degF] DR RUFUS HUNTER MD [address] [place] [address] 08-08-2024 10:38-0400 Diastolic Blood Pressure Non-Invasive 55 mm[Hg] DR RUFUS HUNTER MD [address] [place] [address] 08-08-2024 10:38-0400 Heart rate 52 /min DR RUFUS HUNTER MD [address] [place] [address] 08-08-2024 10:38-0400 Reason For Taking VItal Signs DR RUFUS HUNTER MD [address] [place] [address] 08-08-2024 10:38-0400 Respiratory rate 16 /min DR RUFUS HUNTER MD [address] [place] [address] 08-08-2024 10:38-0400 Systolic Blood Pressure Non-Invasive 108 mm[Hg] DR RUFUS HUNTER MD [address] [place] [address] 08-08-2024 09:17-0400 Heart rate 58 /min DR RUFUS HUNTER MD [address] [place] [address] 08-08-2024 09:02-0400 Blood Pressure Cuff Size DR RUFUS HUNTER MD [address] [place] [address] 08-08-2024 09:02-[address] RUFUS HUNTER MD [address] [place] [address] 08-08-2024 09:02-[address] RUFUS HUNTER MD [address] [place] [address] 08-08-2024 09:02-0400 Body temperature 98.78 [degF] DR RUFUS HUNTER MD [address] [place] [address] 08-08-2024 09:02-0400 Diastolic Blood Pressure Non-Invasive 64 mm[Hg] DR RUFUS HUNTER MD [address] [place] [address] 08-08-2024 09:02-0400 Heart rate 52 /min DR RUFUS HUNTER MD [address] [place] [address] 08-08-2024 09:02-0400 Heart rate 53 /min DR RUFUS HUNTER MD [address] [place] [address] 08-08-2024 09:02-0400 Reason For Taking VItal Signs DR RUFUS HUNTER MD [address] [place] [address] 08-08-2024 09:02-0400 Respiratory rate 14 /min DR RUFUS HUNTER MD [address] [place] [address] 08-08-2024 09:02-0400 Systolic Blood Pressure Non-Invasive 109 mm[Hg] DR RUFUS HUNTER MD [address] [place] [address] 08-08-2024 08:52-0400 Body height 175.[address] RUFUS HUNTER MD [address] [place] [address] 08-08-2024 08:52-0400 Body weight 70.[address] RUFUS HUNTER MD [address] [place] [address] 08-08-2024 08:52-0400 Body weight 22.81 kg/m2 DR RUFUS HUNTER MD [address] [place] [address] 08-08-2024 07:47-0400 Heart rate 60 /min ZOIE GUZMAN DO [facility] 08-08-2024 07:47-0400 Respiratory rate 16 /min ZOIE FROMMELT DO [facility] 08-08-2024 07:36-0400 Diastolic Blood Pressure Non-Invasive 70 mm[Hg] ZOIE FROMMELT DO [facility] 08-08-2024 07:36-0400 Heart rate 52 /min ZOIE FROMMELT DO [facility] 08-08-2024 07:36-0400 Respiratory rate 16 /min ZOIE FROMMELT DO [facility] 08-08-2024 07:36-0400 Systolic Blood Pressure Non-Invasive 106 mm[Hg] ZOIE FROMMELT DO [facility] 08-08-2024 06:49-0400 Diastolic Blood Pressure Non-Invasive 74 mm[Hg] ZOIE FROMMELT DO [facility] 08-08-2024 06:49-0400 Heart rate 53 /min ZOIE FROMMELT DO [facility] 08-08-2024 06:49-0400 Mean blood pressure 84 mm[Hg] ZOIE FROMMELT DO [facility] 08-08-2024 06:49-0400 Respiratory rate 16 /min ZOIE FROMMELT DO [facility] 08-08-2024 06:49-0400 Systolic Blood Pressure Non-Invasive 103 mm[Hg] ZOIE FROMMELT DO [facility] 08-08-2024 06:07-0400 Diastolic Blood Pressure Non-Invasive 74 mm[Hg] ZOIE FROMMELT DO [facility] 08-08-2024 06:07-0400 Mean blood pressure 84 mm[Hg] ZOIE FROMMELT DO [facility] 08-08-2024 06:07-0400 Systolic Blood Pressure Non-Invasive 107 mm[Hg] ZOIE FROMMELT DO [facility] 08-08-2024 05:26-0400 Mean blood pressure 87 mm[Hg] ZOIE FROMMELT DO [facility] 08-08-2024 04:01-0400 Body height 175.3 cm ZOIE FROMMELT DO [facility] 08-08-2024 04:01-0400 Body temperature 97.16 [degF] ZOEI FROMMELT DO [facility] 08-08-2024 04:01-0400 Body weight 75 kg ZOIE FROMMELT DO [facility] 08-08-2024 04:01-0400 Heart rate 71 /min ZOIE FROMMELT DO [facility] 07-25-2024 12:00-0400 Diastolic Blood Pressure Non-Invasive 90 mm[Hg] ZOIE FROMMELT DO [facility] 07-25-2024 12:00-0400 Heart rate 61 /min ZOIE FROMMELT DO [facility] 07-25-2024 11:52-0400 Diastolic Blood Pressure Non-Invasive 73 mm[Hg] ZOIE FROMMELT DO [facility] 07-25-2024 11:52-0400 Heart rate 62 /min ZOIE FROMMELT DO [facility] 07-25-2024 11:52-0400 Respiratory rate 18 /min ZOIE FROMMELT DO [facility] 07-25-2024 11:52-0400 Systolic Blood Pressure Non-Invasive 128 mm[Hg] ZOIE FROMMELT DO [facility] 07-25-2024 10:15-0400 Diastolic Blood Pressure Non-Invasive 72 mm[Hg] ZOIE FROMMELT DO [facility] 07-25-2024 10:15-0400 Heart rate 60 /min ZOIE FROMMELT DO [facility] 07-25-2024 10:15-0400 Respiratory rate 19 /min ZOIE FROMMELT DO [facility] 07-25-2024 10:15-0400 Systolic Blood Pressure Non-Invasive 119 mm[Hg] ZOIE FROMMELT DO [facility] 07-25-2024 07:27-0400 Blood Pressure Cuff Size ZOIE FROMMELT DO [facility] 07-25-2024 07:27-0400 Blood Pressure Location ZOIE FROMMELT DO [facility] 07-25-2024 07:27-0400 Blood Pressure Method ZOIE PEPET D O [facility] 07-25-2024 07:27-0400 Body height 175.3 cm ZOIE FROMMELT DO [facility] 07-25-2024 07:27-0400 Body temperature 97.34 [degF] ZOIE FROMMELT DO [facility] 07-25-2024 07:27-0400 Body weight 74.2 kg ZOIE FROMMELT DO [facility] 07-25-2024 07:27-0400 Heart rate 74 /min ZOIE FROMMELT DO [facility] 07-02-2024 10:53-0400 Body temperature 98.1 [degF] Krislyn Aberegg PA Work Phone: [facility] 07-02-2024 10:53-0400 Body weight 75 kg Krislyn Aberegg PA Work Phone: [facility] 07-02-2024 10:53-0400 Diastolic blood pressure 60 mm[Hg] Krislyn Aberegg PA Work Phone: [facility] 07-02-2024 10:53-0400 Heart rate 66 /min Krislyn Aberegg PA Work Phone: [facility] 07-02-2024 10:53-0400 Respiratory rate 16 /min Krislyn Aberegg PA Work Phone: [facility] 07-02-2024 10:53-0400 SaO2% (BldA) [Mass fraction] 97 % Krislyn Aberegg PA Work Phone: [facility] 07-02-2024 10:53-0400 Systolic blood pressure 102 mm[Hg] Krislyn Aberegg PA Work Phone: [facility] 07-01-2024 05:55-0400 Diastolic Blood Pressure Non-Invasive 68 mm[Hg] PAVAN DURESKA DO [facility] 07-01-2024 05:55-0400 Heart rate 62 /min PAVAN DURESKA DO [facility] 07-01-2024 05:55-0400 Respiratory rate 18 /min PAVAN DURESKA DO [facility] 07-01-2024 05:55-0400 Systolic Blood Pressure Non-Invasive 115 mm[Hg] PAVAN DURESKA DO [facility] 07-01-2024 04:48-0400 Diastolic Blood Pressure Non-Invasive 64 mm[Hg] PAVAN DURESKA DO [facility] 07-01-2024 04:48-0400 Mean blood pressure 80 mm[Hg] PAVAN DURESKA DO [facility] 07-01-2024 04:48-0400 Systolic Blood Pressure Non-Invasive 115 mm[Hg] PAVAN DURESKA DO [facility] 07-01-2024 04:39-0400 Body height 175.3 cm PAVAN DURESKA DO [facility] 07-01-2024 04:39-0400 Body temperature 97.88 [degF] PAVAN DURESKA DO [facility] 07-01-2024 04:39-0400 Body weight 75 kg PAVANTASHA MAYSESKA DO [facility] 07-01-2024 04:39-0400 Diastolic Blood Pressure Non-Invasive 38 mm[Hg] PAVAN DURESKA DO [facility] 07-01-2024 04:39-0400 Heart rate 81 /min PAVAN DAVONESKA DO [facility] 07-01-2024 04:39-0400 Respiratory rate 18 /min PAVAN MAYSESKA DO [facility] 07-01-2024 04:39-0400 Systolic Blood Pressure Non-Invasive 128 mm[Hg] PAVAN MAYSESKA DO [facility] Encounters Encounter Date Encounter Type Care Provider Facility Start: 04-08-2025 End: 04-08-2025 Emergency department patient visit Dr. Alan Parker DO Work Phone: -Emergency Department Work Phone: Start: 10-30-2024 ambulatory NONE PHYSICIAN Facility :A Start: 10-29-[address] SIMA Anne acility:A Start: 08-08-2024 End: 08-08-2024 Evaluation and management of inpatient DR RUFUS HUNTER MD [facility] Start: 08-08-2024 End: 08-08-2024 Emergency department patient visit ZOIE GUZMAN DO [facility] Start: 07-25-2024 End: 07-25-2024 Emergency department patient visit ZOIE GUZMAN DO [facility] Start: 07-02-2024 End: 07-02-2024 ambulatory SELF Facility:[facility] Start: 07-02-2024 End: 07-02-2024 Patient encounter procedure Candido Eubanks PA Work Phone: [facility] Comment on above: URI, acute (Primary Dx) Start: 07-01-2024 End: 07-01-2024 Emergency department patient visit NONE PHYSICIAN Facility:[facility] Plan of Treatment Date Care Activity Detail Author Start: 04-08-2025 [facility] Start: 06-15-2024 Covid-19 Vaccine ( season) Covid-19 Vaccine ( season) [facility] Start: 06-15-2024 Influenza vaccination Influenza Vacc ine (#1) [facility] Start: 2015 Lipid panel Lipid Screening [facility] Start: 1999 Hepatitis B Vaccine (1 of 3 - 19+ 3-dose series) Hepatitis B Vaccine (1 of 3 - 19+ 3-dose series) [facility] Start: 1999 Urine microalbumin profile DTaP,Tdap,Td Vaccine (1 - Tdap) [facility] Start: 1998 Anxiety Screening Anxiety Screening [facility] Start: 1998 Depression Screening Depression Scre ening [facility] Start: 1998 Hepatitis C screening Hepatitis C Sc reening [facility] Start: 1998 HIV screening HIV Screening [facility] Patient Education ED Dental Cavity [facility] Work Phone: Patient referral [facility] Work Phone: Payers Date Payer Category Payer Self-pay 1980 Unknown [id number] [id number] 1980 Unknown [id number] [id number] 1980 Unknown [id number] [id number] 1980 Unknown [id number] [id number] 1980 Unknown [id number] [id number] [id number] 1980 Unknown [id number] [id number] Unknown [id number] [id number] [id number] Social History Date Type Detail Facility Tobacco smoking status NHIS Tobacco smoking consumption unknown [facility] Start: 1980 Sex assigned at Not on file [facility] Gender identity Not on file [facility] in Tobacco smoking status No Smoking Status Entered [facility] Start: 1980 Sex Assigned At Male A [facility] Start: 08-08-2024 Tobacco smoking status Heavy tobacco smoker (finding) [facility] Start: 04-08-2025 Tobacco smoking status NHIS Smokes tobacco daily (finding) [facility] Functional Status Date Assessment Result Facility 08-08-2024 Functional Status Room check performed [facility] 08-08-2024 Functional Status [facility] 08-08-2024 Functional Status Independent [facility] 07-25-2024 Functional Status Independent [facility] 07-25-2024 Functional Status Room check performed [facility] 07-25-2024 Functional Status [facility] 07-25-2024 Functional Status [facility] 07-01-2024 Functional Status Independent [facility] 07-01-2024 Functional Status Independent [facility] Mental Status Date Assessment Result [facility] 08-08-2024 Mental Status Oriented x 4 [facility] 08-08-2024 Mental Status Orientation Oriented x 4 [facility] 07-25-2024 Mental Status Orientation Oriented x 4 [facility] 07-25-2024 Mental Status [facility] 07-01-2024 Mental Status Orientation Oriented x 4 [facility] 07-01-2024 Mental Status [facility] Clinical Notes 07-01-2024 to 08-08-2024 Note Date & Type Note Facility 08-08-2024 Discharge summary Date of Service 08/08/24 Discharge Diagnosis CP Hospital Course 44-year-old male with past medical history of half pack per day smoker since age of 20, recent history of chest pain and palpitations presented to [facility] with complaints of chest pain and palpitations which started this morning. Patient states the chest pain is pressure-like located in the center of his chest without radiation, no alleviating or exacerbating factors, and lasts for 15 minutes or less. Patient states he has been having episodes of these chest pains that happen at random with palpitations. Of note recently patient establish care with a general cardiology and EKG done in office was concerning for Zgykz-[id number]-Eabkv. Patient was then transferred to [facility] for further management. Patient states he does not have insurance for this cardiac workup at this time and wants to leave against medical advice. This patient insists on leaving the hospital immediately, against medical advice. The patient states that they have no interest in receiving further medical treatment as an inpatient and understand the risks of leaving at this time. Specifically, this patient understands that leaving the hospital could result in from myocardial infarction, from arrhythmia, bleeding, progressive cardiac deterioration, amongst other complications. We in no way condone the decision to leave the hospital at this time and feel this will almost certainly result in negative consequences with regards to this patient's health. This patient is oriented to person, time, and place.This patient can tell me the nature of illness, our desired interventions, and the risks of not complying with these plans. At this time, this patient possesses medical decision making capacity and is making an informed decision. Allergies No Known Medication Allergies Consults Consult to Physician - Ordered -- 08/08/24 9:25:00 EDTGERMAN RYAN MD, Routine, WPW management Objective Vitals and Measurements T: 36.5 C (Oral) TMIN: 36.5 C (Oral) TMAX: 37.1 C (Oral) HR: 52 (Monitored) RR: 16 BP: 108/55 SpO2: 98% HT: 175.3 cm WT: 70.1 kg BMI: 22.81 Weight Dosing Weight: 70.1 kg (08/08/24) Code Status No qualifying data available. Admission Date 08/08/24 Discharge Date 08/08/24 Patient Instructions - Please follow up with your Primary Care Physician (PCP) as soon as possible. - Please follow-up with all specialists as documented below. - Please keep all follow-up appointments. - Please take all medications as prescribed. - Please return for medical care if your condition worsens or changes. Medications New Prescription atorvastatin (Lipitor 40 mg oral tablet)1 tab(s) by mouth once a day. Refills: 11. Changed aspirin (aspirin 81 mg oral delayed release tablet)1 tab(s) by mouth once a day. Refills: 11. Follow Up Follow Up with SIMA GOMEZ MD When:In 1 week Where:[address] [facility] [id number] [place] [address]- [phone] Follow Up with PHYSICIAN, NONE When:Within 1-2 days Follow Up with ELLIE PORTER MD When:In 1 week Where:[address] [facility] [address] [place] [address]- [phone] Follow Up Appointments No qualifying data available. Follow Up Labs/Studies Discharge Labs No Follow-up Labs Discharge Studies No Follow-up Studies Discharge Diet No qualifying data available. Discharge Activity No qualifying data available. Condition on Discharge Unstable Readmission Risk/Palliative Score No qualifying data available. Discharge Disposition AMA - Home Digitally Signed by EMILY YOUNG MD on 08/08/2024 12:[address] [facility] 08-08-2024 Cardiology Progre ss note Patient states he does not have insurance for this cardiac workup at this time and wants to leave against medical advice. This patient insists on leaving the hospital immediately, against medical advice. The patient states that they have no interest in receiving further medical treatment as an inpatient and understand the risks of leaving at this time. Specifically, this patient understands that leaving the hospital could result in from myocardial infarction, from arrhythmia, bleeding, progressive cardiac deterioration, amongst other complications. We in no way condone the decision to leave the hospital at this time and feel this will almost certainly result in negative consequences with regards to this patient's health. This patient is oriented to person, time, and place.This patient can tell me the nature of illness, our desired interventions, and the risks of not complying with these plans. At this time, this patient possesses medical decision making capacity and is making an informed decision. Digitally Signed by EMILY YOUNG MD on 08/08/2024 11:[address] [facility] 08-08-2024 History and physi cristin note Date of Service 08/08/24 Chief Complaint Chest pain palpitations History of Present Illness 44-year-old male with past medical history of half pack per day smoker since age of 20, recent history of chest pain and palpitations presented to [facility] with complaints of chest pain and palpitations which started this morning. Patient states the chest pain is pressure-like located in the center of his chest without radiation, no alleviating or exacerbating factors, and lasts for 15 minutes or less. Patient states he has been having episodes of these chest pains that happen at random with palpitations. Of note recently patient establish care with a general cardiology and EKG done in office was concerning for Hsrze-Yamxcpcdz-Cxesq. Patient was then transferred to [facility] for further management. PMH: As documented in chart PSH: None FH: Hypertension, hyperlipidemia, diabetes, and "heart problems" SH: Half pack per day smoker since age of 20, no alcohol, no drug. 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 Allergies: NKDA Review of Systems Per HPI, Complete ROS otherwise negative Physical Exam Vitals and Measurements T: 37.1 C (Oral) HR: 58 (Monitored) RR: 14 BP: 109/64 SpO2: 96% HT: 175.3 cm WT: 70.1 kg BMI: 22.81 Weight Dosing Weight: 70.1 kg (08/08/24) General: AAOX3, NAD, middle-age male HEENT: Anicteric sclera, MMM Neck: Trachea midline, no JVD appreciated CVS: RRR, normal S1/S2, no murmurs/rubs/gallops Lung: CTAB, no wheezes/rhonchi/rales Abd: Soft, NT/ND Extrem: WWP, no LE edema Skin: Warm, Intact Neuro: AAOX3, spontaneous movement of all extremities Psych: Appropriate mood & affect Lab Results No 36 Hour Lab Data Assessment/Plan #Atypical angina #Palpitations #Tachycardia #Tibpl-Cedizuyug-Hvmec #Tobacco abuse - Child Advocate: Dr. Gomez, new - Latest EKG reviewed - Latest imaging reviewed Plan: - Daily weight, strict I+Os - Monitor & replace electrolytes as needed, goal K >4 mEq/L, Mg >2 mg/dL - Ordered transthoracic echocardiogram - Inpatient Cardiac regimen ACEi/ARB: None Analgesia: None Antiplatelet: Ordered aspirin 81 mg daily After/Pre: None BBlockade: None Lipid: Ordered atorvastatin 40 mg daily Device: None Advanced Therapies: None - Continue all other medications as prescribed - Risks and benefits of procedure/coronary angiography discussed with patient including risk of infection, bleeding, (0.1%), GA (<0.1%), stroke (0.1%), vascular complications (1-2%), allergic rxns, contrast nephropathy; patient agreeable and willing to proceed - Ordered cardiac catheterization, NPO for procedure Patient seen and discussed with Dr. Sudarshan Young II, MD PGY- Cardiovascular Disease Fellow Pager: [phone] Problem List/Past Medical History Ongoing Bronchitis Chest pain, atypical WPW (Nqeax-Pmaeztuol-Yolhf syndrome) Procedure/Surgical History No qualifying data available. Medications Home Medications (1) Active aspirin 81 mg oral delayed release tablet 81 mg = 1 tab(s), Oral, Daily Allergies No Known Medication Allergies Social History Alcohol Use: Current. Type: Beer, Liquor. Frequency: 1-2 times per year., 08/08/2024 Nutrition/Health Type of diet: Regular. Caffeine intake amount: 0 CAFFEINE USE. Appetite Good., 08/01/2024 Substance Abuse Use: Never., 08/08/2024 Tobacco Nicotine Use: 10 or more cigarettes (1/2 pack or more)/day in last 30 days. Type: Cigarettes. Number of years: 20. Smoking Cessation Information Requests additional information., 08/08/2024 Family History Diabetes: Father. Heart disease: Father and Brother. Health Status Family Member(s) Immunizations No qualifying data available. Code Status Code Status - Ordered -- 08/08/24 9:23:00 EDT, Full Code, Constant Order Digitally Signed by EMILY YOUNG MD on 08/08/2024 09:55 AM Digitally Signed by EMILY YOUNG MD on 08/08/2024 10:[address] [facility] 08-08-2024 Evaluation + Plan note Extrac duarte from: Title:History and Physical Author:PAMELA YOUNG MD Date:08/08/24 #Atypical angina #Palpitations #Tachycardia #Jjmkm-Jkirbwcxu-Ijuuc #Tobacco abuse - Child Advocate: Dr. Gomez, new - Latest EKG reviewed - Latest imaging reviewed Plan: - Daily weight, strict I+Os - Monitor & replace electrolytes as needed, goal K >4 mEq/L, Mg >2 mg/dL - Ordered transthoracic echocardiogram - Inpatient Cardiac regimen ACEi/ARB: None Analgesia: None Antiplatelet: Ordered aspirin 81 mg daily After/Pre: None BBlockade: None Lipid: Ordered atorvastatin 40 mg daily Device: None Advanced Therapies: None - Continue all other medications as prescribed - Risks and benefits of procedure/coronary angiography discussed with patient including risk of infection, bleeding, (0.1%), GA (<0.1%), stroke (0.1%), vascular complications (1-2%), allergic rxns, contrast nephropathy; patient agreeable and willing to proceed - Ordered cardiac catheterization, NPO for procedure Patient seen and discussed with Dr. Sudarshan Young II, MD PGY- Cardiovascular Disease Fellow Pager: [phone] Addendum by ANKIT ZIMMERMAN MD on August 08, 2024 16:56:00 EDT I have personally seen, examined and evaluated the patient on the encounter date. I have reviewed the fellow's documentation and agree with the fellow's findings and plan as documented, unless otherwise stated. Future Appointments Appointment Date:09/17/2024 04:15:00 PM Scheduled Provider:TATE TORRES Location:[facility] Appointment Type:CV DRY WALL SPRAYER Appointment Date:11/04/2024 12:30:00 PM Scheduled Provider: Location:CT Appointment Type:yyCT Coronary Extracardiac Appointment Date:11/04/2024 02:30:00 PM Scheduled Provider: Location:CT Appointment Type:*CT Coronary Angiography w+w/o Contrast Diagnostic Tests Pending * Urinalysis w/ C&S if Indicated 08/08/24 Future Scheduled Tests Radiology* CT Coronary Angiography w+w/o Contrast 11/04/24 * CT Coronary Extracardiac 11/04/[address] [facility] 10-25-2024 Discharge summary Date of Service 08/08/24 Discharge Diagnosis CP Hospital Course 44-year-old male with past medical history of half pack per day smoker since age of 20, recent history of chest pain and palpitations presented to [facility] with complaints of chest pain and palpitations which started this morning. Patient states the chest pain is pressure-like located in the center of his chest without radiation, no alleviating or exacerbating factors, and lasts for 15 minutes or less. Patient states he has been having episodes of these chest pains that happen at random with palpitations. Of note recently patient establish care with a general cardiology and EKG done in office was concerning for Bsucu-Ruppxievb-Azcaf. [facility]. Patient states he does not have insurance for this cardiac workup at this time and wants to leave against medical advice. This patient insists on leaving the hospital immediately, against medical advice. The patient states that they have no interest in receiving further medical treatment as an inpatient and understand the risks of leaving at this time. Specifically, this patient understands that leaving the hospital could result in from myocardial infarction, from arrhythmia, bleeding, progressive cardiac deterioration, amongst other complications. We in no way condone the decision to leave the hospital at this time and feel this will almost certainly result in negative consequences with regards to this patient's health. This patient is oriented to person, time, and place.This patient can tell me the nature of illness, our desired interventions, and the risks of not complying with these plans. Atthis time, this patient possesses medical decision making capacity and is making an informed decision. Allergies No Known Medication Allergies Consults Consult to Physician - Ordered -- 08/08/24 9:25:00 EDTGERMAN RYAN MD, Routine, WPW management Objective Vitals and Measurements T: 36.5 C (Oral) TMIN: 36.5 C (Oral) TMAX: 37.1 C (Oral) HR: 52 (Monitored) RR: 16 BP: 108/55 SpO2:98% HT: 175.3 cm WT: 70.1 kg BMI: 22.81 Weight Dosing Weight: 70.1 kg (08/08/24) Code Status No qualifying data available. Admission Date 08/08/24 Discharge Date 08/08/24 Patient Instructions - Please follow up with your Primary Care Physician (PCP) as soon as possible. - Please follow-up with all specialists as documented below. - Please keep all follow-up appointments. - Please take all medications as prescribed. - Please return for medical care if your condition worsens or changes. Medications New Prescription atorvastatin (Lipitor 40 mg oral tablet)1 tab(s) by mouth once a day. Refills: 11. Changed aspirin (aspirin 81 mg oral delayed release tablet)1 tab(s) by mouth once a day. Refills: 11. Follow Up Follow Up with SIMA GOMEZ MD When:In 1 week Where:[address] [facility] [address] [place] [address]- [phone] Follow Up with PHYSICIAN, NONE When:Within 1-2 days Follow Up with ELLIE PORTER MD When:In 1 week Where:[address] [facility] [address] [place] [address]- [phone] Follow Up Appointments No qualifying data available. Follow Up Labs/Studies Discharge Labs No Follow-up Labs Discharge Studies No Follow-up Studies Discharge Diet No qualifying data available. Discharge Activity No qualifying data available. Condition on Discharge Unstable Readmission Risk/Palliative Score No qualifying data available. Discharge Disposition AMA - Home Digitally Signed by EMILY YOUNG MD on 08/08/2024 12:[address] [facility] [address] [id number] Cardiology Progress note Patient states he does not have insurance for this cardiac workup at this time and wants to leave against medical advice. This patient insists on leaving the hospital immediately, against medical advice. The patient states that they have no interest in receiving further medical treatment as an inpatient and understand the risks of leaving at this time. Specifically, this patient understands that leaving the hospital could result in from myocardial infarction, from arrhythmia, bleeding, progressive cardiac deterioration, amongst other complications. We in no way condone the decision to leave the hospital at this time and feel this will almost certainly result in negative consequences with regards to this patient's health. This patient is oriented to person, time, and place.This patient can tell me the nature of illness, our desired interventions, and the risks of not complying with these plans. Atthis time, this patient possesses medical decision making capacity and is making an informed decision. Digitally Signed by EMILY YOUNG MD on 08/08/2024 11:[address] [id number] Note Smoking Cessation Consult Entered On: 08/08/2024 11:04 EDT Performed On: 08/08/2024 11:04 EDT by LUCAS Dougherty Cessation Attempt to Quit Smoking in Past : No Methods Used To Quit Smoking : None Readiness to Quit Smoking : Contemplating quitting Practical Counseling : Provide basic information LUCAS Dougherty - 08/08/2024 11:04 EDT Discharge Planning-Smoking Cessation Time Spent wih Patient-SC : Between 3-10 minutes LUCAS Dougherty - 08/08/2024 11:[address] [id number] History and physical note Date of Service 08/08/24 Chief Complaint Chest pain palpitations History of Present Illness 44-year-old male with past medical history of half pack per day smoker since age of 20, recent history of chest pain and palpitations presented to [facility] with complaints of chest pain and palpitations which started this morning. Patient states the chest pain is pressure-like located in the center of his chest without radiation, no alleviating or exacerbating factors, and lasts for 15 minutes or less. Patient states he has been having episodes of these chest pains that happen at random with palpitations. Of note recently patient establish care with a general cardiology and EKG done in office was concerning for Pilgi-Wxeagpvax-Arzog. [facility] PMH: As documented in chart PSH: None FH: Hypertension, hyperlipidemia, diabetes, and "heart problems" SH: Half pack per day smoker since age of 20, no alcohol, no drug. 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 Allergies: NKDA Review of Systems Per HPI, Complete ROS otherwise negative Physical Exam Vitals and Measurements T: 37.1 C (Oral) HR: 58 (Monitored) RR: 14 BP: 109/64 SpO2: 96% HT: 175.3 cm WT: 70.1 kg BMI: 22.81 Weight Dosing Weight: 70.1 kg (08/08/24) General: AAOX3, NAD, middle-age male HEENT: Anicteric sclera, MMM Neck: Trachea midline, no JVD appreciated CVS: RRR, normal S1/S2, no murmurs/rubs/gallops Lung: CTAB, no wheezes/rhonchi/rales Abd: Soft, NT/ND Extrem: WWP, no LE edema Skin: Warm, Intact Neuro: AAOX3, spontaneous movement of all extremities Psych: Appropriate mood & affect Lab Results No 36 Hour Lab Data Assessment/Plan #Atypical angina #Palpitations #Tachycardia #Taqff-Knhcfnguj-Udcyy #Tobacco abuse - Child Advocate: Dr. Gomez, new - Latest EKG reviewed - Latest imaging reviewed Plan: - Daily weight, strict I+Os - Monitor & replace electrolytes as needed, goal K >4 mEq/L, Mg >2 mg/dL - Ordered transthoracic echocardiogram - Inpatient Cardiac regimen ACEi/ARB: None Analgesia: None Antiplatelet: Ordered aspirin 81 mg daily After/Pre: None BBlockade: None Lipid: Ordered atorvastatin 40 mg daily Device: None Advanced Therapies: None - Continue all other medications as prescribed - Risks and benefits of procedure/coronary angiography discussed with patient including risk of infection, bleeding, (0.1%), GA (<0.1%), stroke (0.1%), vascular complications (1-2%), allergic rxns, contrast nephropathy; patient agreeable and willing to proceed - Ordered cardiac catheterization, NPO for procedure Patient seen and discussed with Dr. Sudarshan Young II, MD PGY- Cardiovascular Disease Fellow Pager: [phone] Problem List/Past Medical History Ongoing Bronchitis Chest pain, atypical WPW (Finnh-Uhajtpvjn-Qfggo syndrome) Procedure/Surgical History No qualifying data available. Medications Home Medications (1) Active aspirin 81 mg oral delayed release tablet 81 mg = 1 tab(s), Oral, Daily Allergies No Known Medication Allergies Social History Alcohol Use: Current. Type: Beer, Liquor. Frequency: 1-2 times per year., 08/08/2024 Nutrition/Health Type of diet: Regular. Caffeine intake amount: 0 CAFFEINE USE. Appetite Good., 08/01/2024 Substance Abuse Use: Never., 08/08/2024 Tobacco Nicotine Use: 10 or more cigarettes (1/2 pack or more)/day in last 30 days. Type: Cigarettes. Number of years: 20. Smoking Cessation Information Requests additional information., 08/08/2024 Family History Diabetes: Father. Heart disease: Father and Brother. Health Status Family Member(s) Immunizations No qualifying data available. Code Status Code Status - Ordered -- 08/08/24 9:23:00 EDT, Full Code, Constant Order Digitally Signed by EMILY YOUNG MD on 08/08/2024 09:55 AM Digitally Signed by EMILY YOUNG MD on 08/08/2024 10:[address] [id number] Hospital Discharge instructions Follow Up Care 08/08/2024 05:21:01 With:SIMA GOMEZ MD Address: [address] [place] [phone] [phone] When:Within 1 Week(s) With:PHYSICIAN, NONE Address:Unknown When:1-2 days With:ELLIE PORTER MD Address: [address] [place] [phone] [phone] When:Within 1 Week(s) [facility] 10-25-2024 Note ORIGINAL EXAMINATION: ONE XRAY VIEW OF THE CHEST08/08/2024 4:33 am COMPARISON: Chest radiograph 07/25/2024. HISTORY: ORDERING SYSTEM PROVIDED HISTORY: Reason for Exam: Dizziness, recent bronchitis. chest pain FINDINGS: Cardiomediastinal contours are within normal limits. No focal consolidation or pulmonary edema. No pneumothorax or pleural effusion. No acute osseous abnormalities. IMPRESSION: No acute radiographic process. I have personally reviewed the images of this examination, and agree with the resident's findings and interpretation. Interpreted by: Raj Velásquez MD Preliminary Report By: Sneha Wright Electronically signed By Raj Velásquez MD Dictated Date: 08/08/2024 4:37:13 AM Prelim Date: 08/08/2024 4:38:04 AM Sign Date: 08/08/2024 4:41:17 AM [facility] NoteSinus rhythm Vent pre-excitat'n(WPW), left acces'y pathway Compared to ECG at 07/25/2024 07:51:30 BORDERLINE ECG Electronic Signature: MILOABDIZOIE Jeronimo DO 08/08/2024 04:27:14[facility] 10-11-2024 Note Discharge Instructions Thank you for allowing [facility] to assist you with your healthcare needs. The following is importantdischarge information regarding your hospital visit. Diagnosis from Today's Visit WPW - Kfcjs-Hxogfkdyh-Gearf pattern What to Do Next Instructions from Your Care Team Discharge Event Monitor Instructions - Ordered -- 07/25/24 12:20:55 EDT, You have been ordered mobile outpatient telemetry. You should receive a device in the mail with further instructions. If you have not received a device within 7 days after discharge, please call [facility] at [phone]. Discharge Return to Work, School, or Sports (Return to Work, School, or Sports) - Ordered -- 07/26/24, May return to: work, 07/25/24 9:24:00 EDT Post Acute Orders No qualifying data available. You Need to Schedule the Following Appointments Follow Up with MIKALA WARNER DO When:Within 2-4 days Where:[address] [facility] [place] [address]- [phone] Allergies No Known Medication Allergies Medications Please ask your primary doctor or pharmacist before taking any other medication not listed, including over the counter drugs, herbal medications, vitamins and or supplements as they may interact withyour home medications. Please take this list to your next doctor s visit. Bring all medications you take, including over the counter medications, herbals and other supplements with you to your doctor s visit. Patients and families are reminded to discard old lists and to update any records with all medication providers or retail pharmacies. Education Materials About Arrhythmias Electrical impulses cause the normal heart to beat 60 to 100 times a minute while at rest. These impulses come from a natural pacemaker deep inside the heart muscle. Each impulse causes the heart muscle to contract. This causes the blood to flow through the heart and out to the tissues and organs of your body. An arrhythmia is a change from the normal speed or pattern of these electrical impulses. This can cause the heart to beat too fast (tachycardia); or too slow (bradycardia); or in an unsteady pattern (irregular rhythm). Symptoms of arrhythmias Different people experience arrhythmias differently. Sometimes they may not have symptoms, but justnotice a change in their pulse. Symptoms can include: Fluttering feeling in the chest Shortness of breath Chest pain or pressure Neck fullness Lightheadedness or dizziness Fainting or almost fainting Palpitations (the sense that your heart is fluttering or beating fast or hard or irregularly) Tiredness, fatigue, or weakness Cardiac arrest Causes of arrhythmias Arrhythmias are most often due to heart disease such as: Coronary artery disease Heart valve disease Enlarged heart High blood pressure Heart failure Other causes of arrhythmia include: Certain medicines (such as asthma inhalers and decongestants) Some herbal supplements Cardiac stimulant drugs (such as cocaine, amphetamine, diet pills, certain decongestant cold medicines, caffeine, and nicotine) Excessive alcohol use Anxiety and panic disorder Thyroid disease Anemia Diabetes Sleep apnea Obesity Congenital heart disease Cardiac genetic diseases Arrhythmias can often be prevented. The cause and type of arrhythmia determines the best treatment.Sometimes your doctor may want to monitor your heart rate over a 24-hour period or longer. This canhelp identify the cause of your arrhythmia and find the best treatment. This can be done with a Holter monitor, a portable EKG recording device attached by wires to your chest. Or you may get an event monitor, which you can place over the skin in front of your heart to record heart rhythms. You cancarry this with you as you go about your routine activities during the monitoring period. Implantable loop recorders may also be used to monitor the heart rhythm for up to 2 years. This miniature device is placed underneath the skin overlying the heart. Home care The following guidelines will help you care for yourself at home: Avoid cardiac stimulants (such as cocaine, amphetamine, diet pills, certain decongestant cold medicines, caffeine, and nicotine). If you smoke, stop smoking. Contact your doctor or a local stop-smoking program for help. Tell your doctor about any prescription, kakj-efy-cyoipxm, or herbal medicines you take. These may be affecting your heart rhythm. Follow-up care Follow up with your healthcare provider, or as advised. If a Holter monitor has been recommended, contact the lumber tallier you have been referred to as soon as you can picker operator the device. Other outpatient tests may also be arranged for you at that time. Call 911 This is the fastest and safest way to get to the emergency department. The paramedics can also start treatment on the way to the hospital, if needed. Don't wait until your symptoms are severe to call 911. Other reasons to call 911 besides chest paininclude: Chest, shoulder, arm, neck, or back pain Shortness of breath Feeling lightheaded, faint, or dizzy Unexplained fainting Rapid heart beat Slower than usual heart rate compared to your normal Very irregular heartbeat Chest pain (angina) with weakness, dizziness, heavy sweating, nausea, or vomiting Extreme drowsiness, or confusion Weakness of an arm or leg or one side of the face Difficulty with speech or vision When to seek medical advice Remember, things are not always like they are on TV. Sometimes it is not so obvious. You may only feel weak or just "not right." If it is not clear or if you have any doubt, call for advice. Seek help for chest pain, or it feels different from usual, even if your symptoms are mild. Don't drive yourself. Have someone else drive. If no one can drive you, call 911. If your doctor has given you medicines to take when you have symptoms, take them, but don't delay getting help while trying to find them. [phone] [employer]. [address] [place] [address], [place] [address]. All rights reserved. This information is not intended as a substitute for professional medical care. Always follow yourhealthcare professional's instructions. Additional Information VACCINATE! IT SAVES LIVES! Members of the community who have not yet received the COVID-19 vaccine and would like to receive it can visit one of [facility] vaccine clinics. There are many vaccine clinic locations within the [facility]. For locations and available times, please visit www.[email or web address].[place].gov/. It is important to note that some COVID mobile vaccine clinics are held outdoors and may be canceled in rainy or stormy conditions. To learn more about pediatric vaccinations (ages 5-11), we invite you to visit the [facility] webpage. [email or web address]/[email or web address] learn more about the COVID-19 vaccine, we invite you to visit the CDC website for a list of frequently asked questions. https://www.cdc.gov/coronavirus/2019-ncov/vaccines/faq.html [facility] Patient Portal Access Instructions: Stay connected with your healthcare team and access your personal medical information anytime with the [facility] Patient Portal. If you would like a full copy of your medical records please contact the [facility] Medical Records Department Sunday through Sunday between 8a.m. and 4:30p.m. Please follow the directions below to access the portal: 1.Access the email account you provided upon registration to the [facility].2.Look for an invitation email from [facility].3.Open the email and access the invitation link: Accept Invitation to [facility]4.Fill in the required rice to create your account. Sign into www.[employer] with your username and password that you created in the above steps to stay up to date. You can then view a summary of results, a summary of your visits, and the ability to download your summaries to your computer or send the information securely to a physician. Remember that your healthcare information is confidential, so carefully consider who you will allow to register on the [facility] Patient Portal for access to your information. You can also access the [facility] Patient Portal on the [employer]. Simply click on "Health Records" under "HealthData" and then click on the [facility] logo. HOW TO SAFELY DISPOSE OF PRESCRIPTION MEDICATIONS Please use one of the following methods to safely dispose of your unused medications. 1.Use a drug disposal kit: the drug disposal pouch allows you to safely discard your old and unuseddrugs. Ask your nurse to give you one when you are discharged.2.Visit a local take-back location: Many local pharmacies and police departments have programs that collect old and unwanted prescriptiondrugs. Call your local pharmacy or go to http://[employer].Gridium/1Y2Jc0t to find one close to you.3.Make use of household items: Use cat litter or old coffee grounds to dispose medications if other options arenot available. Mix your drugs with these household products, seal them in an airtight container andthrow it into the garbage. Call [facility]: [phone] to be sure your drugs can be disposed of in this way. Some medicines may require a different approach.4.Never flush your medications down the toilet. IF YOU HAVE BEEN PRESCRIBED AN OPIOIDS FOR PAIN If you have been prescribed an opioid (such as hydrocodone, oxycodone or morphine), it is critical to understand the possible side effects and risks of opioid pain medications. Even when taken as directed, opioids can have several side effects including: Tolerance, meaning you might need to take more of a medication for the same pain relief. Nausea, vomiting and/or constipation. Sleepiness, dizziness, dry mouth, confusion, depression or itching. Physical dependence, meaning you have withdrawal symptoms when a medication is stopped ? this can develop within a few days. KNOW YOUR RESPONSIBILITIES It is important to know exactly how much and how often to take the opioid pain medications you are prescribed. Never take opioids in higher amounts or more often than prescribed. Do not combine opioids with alcohol or other drugs that cause drowsiness, such as benzodiazepines, also known as benzos,including diazepam and alprazolam, muscle relaxants or sleep aids. Never sell or share prescriptionopioids. This is illegal. Store opioids in a secure place and out of reach of others (including children, family, friends and visitors). The last page(s) of this document has been signed and retained as a CHART COPY Signatures Patient Education Materials About Arrhythmias Medication Leaflets My discharge plan and instructions have been reviewed and explained to me and ICHRISTIANO BRIAN understand my current condition and have read and understand these discharge instructions. I have received a written copy of the plan/instructions. If I have questions, I am aware that I should contact my doctor. 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 These impulses come from a natural pacemaker deep inside the heart muscle. Each impulse causes the heart muscle to contract. This causes the blood to flow through the heart and out to the tissues and organs of your body. An arrhythmia is a change from the normal speed or pattern of these electrical impulses. This can cause the heart to beat too fast (tachycardia); or too slow (bradycardia); or in an unsteady pattern (irregular rhythm). Symptoms of arrhythmias Different people experience arrhythmias differently. Sometimes they may not have symptoms, but justnotice a change in their pulse. Symptoms can include: Fluttering feeling in the chest Shortness of breath Chest pain or pressure Neck fullness Lightheadedness or dizziness Fainting or almost fainting Palpitations (the sense that your heart is fluttering or beating fast or hard or irregularly) Tiredness, fatigue, or weakness Cardiac arrest Causes of arrhythmias Arrhythmias are most often due to heart disease such as: Coronary artery disease Heart valve disease Enlarged heart High blood pressure Heart failure Other causes of arrhythmia include: Certain medicines (such as asthma inhalers and decongestants) Some herbal supplements Cardiac stimulant drugs (such as cocaine, amphetamine, diet pills, certain decongestant cold medicines, caffeine, and nicotine) Excessive alcohol use Anxiety and panic disorder Thyroid disease Anemia Diabetes Sleep apnea Obesity Congenital heart disease Cardiac genetic diseases Arrhythmias can often be prevented. The cause and type of arrhythmia determines the best treatment.Sometimes your doctor may want to monitor your heart rate over a 24-hour period or longer. This canhelp identify the cause of your arrhythmia and find the best treatment. This can be done with a Holter monitor, a portable EKG recording device attached by wires to your chest. Or you may get an event monitor, which you can place over the skin in front of your heart to record heart rhythms. You cancarry this with you as you go about your routine activities during the monitoring period. Implantable loop recorders may also be used to monitor the heart rhythm for up to 2 years. This miniature device is placed underneath the skin overlying the heart. Home care The following guidelines will help you care for yourself at home: Avoid cardiac stimulants (such as cocaine, amphetamine, diet pills, certain decongestant cold medicines, caffeine, and nicotine). If you smoke, stop smoking. Contact your doctor or a local stop-smoking program for help. Tell your doctor about any prescription, axdx-icj-zvwcsys, or herbal medicines you take. These may be affecting your heart rhythm. Follow-up care Follow up with your healthcare provider, or as advised. If a Holter monitor has been recommended, contact the lumber tallier you have been referred to as soon as you can picker operator the device. Other outpatient tests may also be arranged for you at that time. Call 911 This is the fastest and safest way to get to the emergency department. The paramedics can also start treatment on the way to the hospital, if needed. Don't wait until your symptoms are severe to call 911. Other reasons to call 911 besides chest paininclude: Chest, shoulder, arm, neck, or back pain Shortness of breath Feeling lightheaded, faint, or dizzy Unexplained fainting Rapid heart beat Slower than usual heart rate compared to your normal Very irregular heartbeat Chest pain (angina) with weakness, dizziness, heavy sweating, nausea, or vomiting Extreme drowsiness, or confusion Weakness of an arm or leg or one side of the face Difficulty with speech or vision When to seek medical advice Remember, things are not always like they are on TV. Sometimes it is not so obvious. You may only feel weak or just "not right." If it is not clear or if you have any doubt, call for advice. Seek help for chest pain, or it feels different from usual, even if your symptoms are mild. Don't drive yourself. Have someone else drive. If no one can drive you, call 911. If your doctor has given you medicines to take when you have symptoms, take them, but don't delay getting help while trying to find them. [phone] [employer]. [address] [place] [address]. All rights reserved. This information is not intended as a substitute for professional medical care. Always follow yourhealthcare professional's instructions. Follow Up Care 07/25/2024 07:18:09 With:MIKALA WARNER DO Address: [address] [place] [address] [address] [facility] [place] [address]- [phone] When:2-4 days [facility] 10-11-2024 Note ORIGINAL EXAMINATION: ONE XRAY VIEW OF THE CHEST TECHNIQUE: One view AP upright COMPARISON: Chest 07/01/2024 HISTORY: ORDERING SYSTEM PROVIDED HISTORY: Reason for Exam: chest pain FINDINGS: Support devices: None Cardiomediastinal: The heart size is normal. Lungs: No pulmonary edema, consolidation or a large pleural effusion. Redemonstrated deepening of the costophrenic sulci. Pneumothorax: None Osseous: No acute osseous pathology. IMPRESSION: No acute pulmonary disease. Interpreted by: Christian Dodd MD Preliminary Report By: Christian Dodd MD Electronically signed By Christian Dodd MD Dictated Date: 07/25/2024 8:48:51 AM Prelim Date: 07/25/2024 8:50:44 AM Sign Date: 07/25/2024 8:50:44 AM [facility] NoteSinus rhythm Vent pre-excitat'n(WPW), left acces'y pathway Compared to ECG at 07/01/2024 05:01:41 BORDERLINE ECG Electronic Signature: ZOIE GUZMAN DO 07/25/2024 07:59:35[facility] 09-18-2024 NoteHNO ID: [id number] Author: CANDIDO EUBANKS PA Service: ? Author Type: Physician Sociology Adjunct Instructor Type: Progress Notes Filed: 07/02/2024 11:00 Note Text: This note was created using GOOMriter. Subjective Irwin Romero is a 44 year old male. HPI 44-year-old male presents for cough, chest congestion x 3 days. Patient states he started getting a cough a few days ago. He was seen in [facility] last night and had an EKG and a chest x-ray which he states were normal. He was told he has bronchitis. He was not given any medication for symptoms. Patient states that he went to work today and was sent home due to his coughing. He needs a work note for today. Patient denies any chest pain or shortness of breath. No nasal congestion. No sore throat. No fevers. No vomiting or diarrhea. He has not taken anything ijaq-stz-xlxtnee for symptoms. No other complaint. No past medical history on file. No past surgical history on file. ALLERGIES Patient has no known allergies. MEDICATIONS benzonatate (TESSALON PERLE) 100 mg capsule Take 1 capsule by mouth three times a day as needed. No family history on file. Review of Systems Constitutional: Negative for chills and fever. HENT: Negative for congestion and sore throat. Respiratory: Positive for cough. Negative for shortness of breath. Gastrointestinal: Negative for diarrhea and vomiting. Objective BP 102/60 Pulse 66 Temp 36.7 ?C (98.1 ?F) Resp 16 Wt 75 kg (165 lb 5.5 oz) SpO2 97% Physical Exam Vitals and nursing note reviewed. Constitutional: General: He is not in acute distress. Appearance: Normal appearance. He is not toxic-appearing. HENT: Right Ear: Tympanic membrane and ear canal normal. Left Ear: Tympanic membrane and ear canal normal. Nose: Nose normal. Mouth/Throat: Mouth: Mucous membranes are moist. Eyes: Conjunctiva/sclera: Conjunctivae normal. Cardiovascular: Rate and Rhythm: Normal rate and regular rhythm. Pulmonary: Effort: Pulmonary effort is normal. Breath sounds: Normal breath sounds. No wheezing, rhonchi or rales. Skin: General: Skin is warm and dry. Neurological: Mental Status: He is alert. Assessment and Plan ASSESSMENT/PLAN: 1. URI, acute - ICD9: 465.9, ICD10: J06.9 - Discussed viral etiology and rationale for treatment. - Symptomatic treatment with prn analgesia - Supportive care with fluids and rest -Rx for Tessalon Perles -Declines COVID swab -Work note for today Diagnosis and treatment plan were discussed and questions were answered to the patient's satisfaction. Pt acknowledged understanding of concepts and follow up plan. Specific signs and symptoms that would indicate the need for higher level of care were discussed in detail warranting prompt ER evaluation. Candido Eubanks [facility]09-18-2024 History of Present illness Narrative* Candido Eubanks PA - 07/02/2024 10:58 AM EDT This note was created using Beet[employer]. Subjective Irwin Romero is a 44 year old male. HPI 44-year-old male presents for cough, chest congestion x 3 days. Patient states he started getting a cough a few days ago. He was seen in [facility] last night and had an EKG and a chest x-ray which he states were normal. He was told he has bronchitis. He was not given any medication for symptoms. Patient states that he went to work today and was sent home due to his coughing. He needs a work note for today. Patient denies any chest pain or shortness of breath. No nasal congestion. No sore throat. No fevers. No vomiting or diarrhea. He has not taken anything fffy-dir-oxjride for symptoms. No other complaint. No past medical history on file. No past surgical history on file. ALLERGIES Patient has no known allergies. MEDICATIONS benzonatate (TESSALON PERLE) 100 mg capsule Take 1 capsule by mouth three times a day as needed. No family history on file. Review of Systems Constitutional: Negative for chills and fever. HENT: Negative for congestion and sore throat. Respiratory: Positive for cough. Negative for shortness of breath. Gastrointestinal: Negative for diarrhea and vomiting. Objective BP 102/60 Pulse 66 Temp 36.7 C (98.1 F) Resp 16 Wt 75 kg (165 lb 5.5 oz) SpO2 97% Physical Exam Vitals and nursing note reviewed. Constitutional: General: He is not in acute distress. Appearance: Normal appearance. He is not toxic-appearing. HENT: Right Ear: Tympanic membrane and ear canal normal. Left Ear: Tympanic membrane and ear canal normal. Nose: Nose normal. Mouth/Throat: Mouth: Mucous membranes are moist. Eyes: Conjunctiva/sclera: Conjunctivae normal. Cardiovascular: Rate and Rhythm: Normal rate and regular rhythm. Pulmonary: Effort: Pulmonary effort is normal. Breath sounds: Normal breath sounds. No wheezing, rhonchi or rales. Skin: General: Skin is warm and dry. Neurological: Mental Status: He is alert. Assessment and Plan ASSESSMENT/PLAN: 1. URI, acute - ICD9: 465.9, ICD10: J06.9 - Discussed viral etiology and rationale for treatment. - Symptomatic treatment with prn analgesia - Supportive care with fluids and rest -Rx for Tessalon Perles -Declines COVID swab -Work note for today Diagnosis and treatment plan were discussed and questions were answered to the patient's satisfaction. Pt acknowledged understanding of concepts and follow up plan. Specific signs and symptoms that would indicate the need for higher level of care were discussed in detail warranting prompt ER evaluation. [facility]YLER [facility]acon [facility] Discharge instructions Patient Education 07/01/2024 05:49:11 Bronchitis, No Antibiotic (Adult) Viral Bronchitis (Adult) You have a viral bronchitis. Bronchitis is inflammation and swelling of the lining of the lungs. This is often caused by an infection. Symptoms include a dry, hacking cough that is worse at night. The cough may bring up yellow-green mucus. You may also feel short of breath or wheeze. Other symptomsmay include tiredness, chest discomfort, and chills. Bronchitis that is caused by a virus is not treated with antibiotics. Instead, medicines may be given to help relieve symptoms. Symptoms can last up to 2 weeks, although the cough may last much longer. This illness is contagious during the first few days and is spread through the air by coughing and sneezing, or by direct contact (touching the sick person and then touching your own eyes, nose, or mouth). Most viral illnesses resolve within 10 to 14 days with rest and simple home remedies, although theymay sometimes last for several weeks. Home care If symptoms are severe, rest at home for the first 2 to 3 days. When you go back to your usual activities, don't let yourself get too tired. Do not smoke. Also avoid being exposed to secondhand smoke. You may use yggi-ksa-enpiwmo medicine to control fever or pain, unless another pain medicine was prescribed. If you have chronic liver or kidney disease or have ever had a stomach ulcer or gastrointestinal bleeding, talk with your healthcare provider before using these medicines. Also talk to your provider if you are taking medicine to prevent blood clots. Aspirin should never be given to anyone younger than 18 years of age who is ill with a viral infection or fever. It may cause severe liver or brain damage. Your appetite may be poor, so a light diet is fine. Avoid dehydration by drinking 6 to 8 glasses offluids per day (such as water, soft drinks, sports drinks, juices, tea, or soup). Extra fluids willhelp loosen secretions in the nose and lungs. Gxol-lid-lyyttld cough, cold, and sore-throat medicines will not shorten the length of the illness,but they may help to reduce symptoms. Don't use decongestants if you have high blood pressure. Follow-up care Follow up with your healthcare provider, or as advised. If you had an X-ray or ECG (electrocardiogram), a specialist will review it. You will be notified of any new findings that may affect your care. If you are age 65 or older, or if you have a chronic lung disease or condition that affects your immune system, or you smoke, ask your healthcare provider about getting a pneumococcal vaccine and a yearly flu shot (influenza vaccine). When to seek medical advice Call your healthcare provider right away if any of these occur: Fever of 100.4 F (38 C) or higher, or as directed by your healthcare provider Coughing up increased amounts of colored sputum Weakness, drowsiness, headache, facial pain, ear pain, or a stiff neck Call 911 Call 911 if any of these occur: Coughing up blood Worsening weakness, drowsiness, headache, or stiff neck Trouble breathing, wheezing, or pain with breathing [phone] [employer]. [address] [place] [address], [place] [address]. All rights reserved. This information is not intended as a substitute for professional medical care. Always follow yourhealthcare professional's instructions. Follow Up Care 07/01/2024 04:36:29 With:JOSE M SAMUEL DO Address: [address] [place] [address] [phone] When:2-4 days [facility] 09-17-2024 Note Discharge Instructions Thank you for allowing [facility] to assist you with your healthcare needs. The following is importantdischarge information regarding your hospital visit. Diagnosis from Today's Visit Bronchitis What to Do Next Instructions from Your Care Team Discharge Return to Work, School, or Sports (Return to Work, School, or Sports) - Ordered -- 07/02/24, May return to: work, 07/01/24 5:48:00 EDT Post Acute Orders No qualifying data available. You Need to Schedule the Following Appointments Follow Up with JOSE M SAMUEL DO When:Within 2-4 days Where:[address] [place] [address] [phone] Allergies No Known Medication Allergies Medications Please ask your primary doctor or pharmacist before taking any other medication not listed, including over the counter drugs, herbal medications, vitamins and or supplements as they may interact withyour home medications. Please take this list to your next doctor s visit. Bring all medications you take, including over the counter medications, herbals and other supplements with you to your doctor s visit. Patients and families are reminded to discard old lists and to update any records with all medication providers or retail pharmacies. Education Materials Viral Bronchitis (Adult) You have a viral bronchitis. Bronchitis is inflammation and swelling of the lining of the lungs. This is often caused by an infection. Symptoms include a dry, hacking cough that is worse at night. The cough may bring up yellow-green mucus. You may also feel short of breath or wheeze. Other symptomsmay include tiredness, chest discomfort, and chills. Bronchitis that is caused by a virus is not treated with antibiotics. Instead, medicines may be given to help relieve symptoms. Symptoms can last up to 2 weeks, although the cough may last much longer. This illness is contagious during the first few days and is spread through the air by coughing and sneezing, or by direct contact (touching the sick person and then touching your own eyes, nose, or mouth). Most viral illnesses resolve within 10 to 14 days with rest and simple home remedies, although theymay sometimes last for several weeks. Home care If symptoms are severe, rest at home for the first 2 to 3 days. When you go back to your usual activities, don't let yourself get too tired. Do not smoke. Also avoid being exposed to secondhand smoke. You may use liah-tqw-ebdbfyr medicine to control fever or pain, unless another pain medicine was prescribed. If you have chronic liver or kidney disease or have ever had a stomach ulcer or gastrointestinal bleeding, talk with your healthcare provider before using these medicines. Also talk to your provider if you are taking medicine to prevent blood clots. Aspirin should never be given to anyone younger than 18 years of age who is ill with a viral infection or fever. It may cause severe liver or brain damage. Your appetite may be poor, so a light diet is fine. Avoid dehydration by drinking 6 to 8 glasses offluids per day (such as water, soft drinks, sports drinks, juices, tea, or soup). Extra fluids willhelp loosen secretions in the nose and lungs. Dbni-wwq-hnvdxmh cough, cold, and sore-throat medicines will not shorten the length of the illness,but they may help to reduce symptoms. Don't use decongestants if you have high blood pressure. Follow-up care Follow up with your healthcare provider, or as advised. If you had an X-ray or ECG (electrocardiogram), a specialist will review it. You will be notified of any new findings that may affect your care. If you are age 65 or older, or if you have a chronic lung disease or condition that affects your immune system, or you smoke, ask your healthcare provider about getting a pneumococcal vaccine and a yearly flu shot (influenza vaccine). When to seek medical advice Call your healthcare provider right away if any of these occur: Fever of 100.4 F (38 C) or higher, or as directed by your healthcare provider Coughing up increased amounts of colored sputum Weakness, drowsiness, headache, facial pain, ear pain, or a stiff neck Call 911 Call 911 if any of these occur: Coughing up blood Worsening weakness, drowsiness, headache, or stiff neck Trouble breathing, wheezing, or pain with breathing [phone] [employer]. [address] [place] [address], [place] [address]. All rights reserved. This information is not intended as a substitute for professional medical care. Always follow yourhealthcare professional's instructions. Additional Information VACCINATE! IT SAVES LIVES! Members of the community who have not yet received the COVID-19 vaccine and would like to receive it can visit one of [facility] vaccine clinics. There are many vaccine clinic locations within the [facility]. For locations and available times, please visit [email or web address].[place].gov/. It is important to note that some COVID mobile vaccine clinics are held outdoors and may be canceled in rainy or stormy conditions. To learn more about pediatric vaccinations (ages 5-11), we invite you to visit the [facility] webpage. [email or web address]/[email or web address] [email or web address] learn more about the COVID-19 vaccine, we invite you to visit the CDC website for a list of frequently asked questions. https://www.cdc.gov/coronavirus/2019-ncov/vaccines/faq.html [facility] Patient Portal Access Instructions: Stay connected with your healthcare team and access your personal medical information anytime with the [facility] Patient Portal. If you would like a full copy of your medical records please contact the [facility] Medical Records Department Sunday through Sunday between 8a.m. and 4:30p.m. Please follow the directions below to access the portal: 1.Access the email account you provided upon registration to the [facility].2.Look for an invitation email from [facility].3.Open the email and access the invitation link: Accept Invitation to [facility]4.Fill in the required rice to create your account. Sign into www.[employer] with your username and password that you created in the above steps to stay up to date. You can then view a summary of results, a summary of your visits, and the ability to download your summaries to your computer or send the information securely to a physician. Remember that your healthcare information is confidential, so carefully consider who you will allow to register on the [facility] Patient Portal for access to your information. You can also access the [employer] [facility] Patient Portal on the [employer]. Simply click on "Health Records" under "SeeMore [employer]" and then click on the [employer] logo. HOW TO SAFELY DISPOSE OF PRESCRIPTION MEDICATIONS Please use one of the following methods to safely dispose of your unused medications. 1.Use a drug disposal kit: the drug disposal pouch allows you to safely discard your old and unuseddrugs. Ask your nurse to give you one when you are discharged.2.Visit a local take-back location: Many local pharmacies and police departments have programs that collect old and unwanted prescriptiondrugs. Call your local pharmacy or go to http://[employer].Gridium/2S3Qg8w to find one close to you.3.Make use of household items: Use cat litter or old coffee grounds to dispose medications if other options arenot available. Mix your drugs with these household products, seal them in an airtight container andthrow it into the garbage. Call [facility]: [phone] to be sure your drugs can be disposed of in this way. Some medicines may require a different approach.4.Never flush your medications down the toilet. IF YOU HAVE BEEN PRESCRIBED AN OPIOIDS FOR PAIN If you have been prescribed an opioid (such as hydrocodone, oxycodone or morphine), it is critical to understand the possible side effects and risks of opioid pain medications. Even when taken as directed, opioids can have several side effects including: Tolerance, meaning you might need to take more of a medication for the same pain relief. Nausea, vomiting and/or constipation. Sleepiness, dizziness, dry mouth, confusion, depression or itching. Physical dependence, meaning you have withdrawal symptoms when a medication is stopped ? this can develop within a few days. KNOW YOUR RESPONSIBILITIES It is important to know exactly how much and how often to take the opioid pain medications you are prescribed. Never take opioids in higher amounts or more often than prescribed. Do not combine opioids with alcohol or other drugs that cause drowsiness, such as benzodiazepines, also known as benzos,including diazepam and alprazolam, muscle relaxants or sleep aids. Never sell or share prescriptionopioids. This is illegal. Store opioids in a secure place and out of reach of others (including children, family, friends and visitors). The last page(s) of this document has been signed and retained as a CHART COPY Signatures Patient Education Materials Bronchitis, No Antibiotic (Adult) Medication Leaflets My discharge plan and instructions have been reviewed and explained to me and I,IRWIN ROMERO understand my current condition and have read and understand these discharge instructions. I have received a written copy of the plan/instructions. If I have questions, I am aware that I should contact my doctor. 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 HISTORY: ORDERING SYSTEM PROVIDED HISTORY: Reason for Exam: Chest Pain FINDINGS: The heart size and mediastinal contours are normal. There is no lung infiltrate or edema. No pneumothorax or pleural fluid is present. Skeletal structures are unremarkable. IMPRESSION: No acute cardiopulmonary process. Interpreted by: Raj Velásquez MD Preliminary Report By: Raj Velásquez MD Electronically signed By Raj Velásquez MD Dictated Date: 07/01/2024 5:23:52 AM Prelim Date: 07/01/2024 5:24:43 AM Sign Date: 07/01/2024 5:24:43 AM Ordering Provider[facility] Note Sinus rhythm Vent pre-excitat'n(WPW), left acces'y pathway Electronic Signature: PAVAN ECHEVARRIA DO 07/01/2024 05:13:45[facility] + Plan note Future Appointments Appointment Date:08/01/2024 11:30:00 AM Scheduled Provider: Location:[facility] Appointment Type:CV DRY WALL SPRAYER [facility] Evaluation + Plan note Future Appointments Appointment Date:09/17/2024 04:15:00 PM Scheduled Provider:TATE TORRES Location:[facility] Appointment Type:CV DRY WALL SPRAYER Appointment Date:11/04/2024 12:30:00 PM Scheduled Provider: Location:CT Appointment Type:yyCT Coronary Extracardiac Appointment Date:11/04/2024 02:30:00 PM Scheduled Provider: Location:CT Appointment Type:*CT Coronary Angiography w+w/o Contrast Future Scheduled Tests Radiology* CT Coronary Angiography w+w/o Contrast 11/04/24 * CT Coronary Extracardiac 11/04/24 [facility] Evaluation note* Diagnosis URI, acute- Primary Acute upper respiratory infections of unspecified site documented in this encounter [facility] noteNo assessment information availableWOur [facility] of [facility] Work Phone: Hospital course Narrative No data available for this section [facility] Hospital Discharge instructions No data available for this section [facility] Reason for referral (narrative)No reason for referral information availableWOur Lady of Mercy Hospital Work Phone: Summary Purpose Family History No Family History Records Found No data available for this section No data available for this section No data available for this section No Family History Records Found No data available for this section No Family History Records FoundNo Family History Records Found Advance Directives No Advanced Directives Records Found Advance Directive Response Recorded Date/ Time Do you have a Healthcare Power 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 No April 08, 2025 6:19am Chief Complaint and Reason for Visit Chief Complaint Admit Date DENTAL April 08, 2025 6:18 am Additional Source Comments Source Comments (unrecognize d section and content) In the event this informatio n is protected by the Federal Confidentiality of Alcohol and Drug Abuse Patient Records regulations: The Federal rules restrict any use of the information to criminally investigate or prosecute any alcohol or drug abuse patient.[facility] Reason for Visit (unrecogniz ed section and content) Reason Comments Chest Congestion cough, seen in [facility] last night, given work excuse for yesterday, still not feeling well requesting work excuse for today Specialty Diagnoses / Procedures Referred By Contdania t Referred To Contact [facility] / [facility] Diagnoses cough, chest congestion needs work note Procedures EST SAME DAY [facility] [address] [place] [address] Referral ID Status Reason Start Date Expiration Date Visits Requested Visits Authorized [id number] New Request Financial Clearance Required - Self Pay 07/02/2024 09/30/2024 1 1 (unrecognized sect ion and content) No Status Records FoundNo Status Records FoundNo Status Records FoundNo Status Records Found INFORMATION SOURCE (unrecogn ized section and content) DATE CREATED AUTHOR 07/04/2024 [facility] DATE CREATED AUTHOR AUTHOR'S ORGANIZ ATION 08/11/2024 [facility] DATE CREATED AUTHOR AUTHOR'S ORGANIZ ATION 11/04/2024 [facility] DATE CREATED AUTHOR AUTHOR'S ORGANIZ ATION 04/13/2025 [facility] Patient Care team informatio n (unrecognized section and content) Team Status: Active Member Role Status Dates No Primary Care Physician Primary Care Provider Active Team Status: Inactive Member Role Status Dates Dr. Alan Parker , DO Emergency Provider Active Start: April 08, 2025 End: April 08, 2025 No Primary Care Physician Primary Care Provider Active Start: April 08, 2025 End: April 08, 2025 Goals (unrecognized section and content) Goals may be documented in a n alternate section FOR RECORDS PERTAINING TO PATIENTS WHO ARE OR HAVE BEEN ENROLLED IN A CHEMICAL DEPENDENCY/SUBSTANCEABUSE PROGRAM, SOME INFORMATION MAY BE OMITTED. This clinical summary was aggregated from multiple sources. Caution should be exercised in using it in the provision of clinical care. This summary normalizes information from multiple sources, and as a consequence, information in this document may materially change the coding, format and clinical context of patient data. In addition, data may be omitted in some cases. CLINICAL DECISIONS SHOULD BE BASED ON THE PRIMARY CLINICAL RECORDS. [facility] [employer] [facility]. provides no warranty or guarantee of the accuracy or completeness of information in this document.
[2025-05-07 06:38] LABS: AST(SGOT) 25 U/L (<=37); Alanine Aminotransfer ALT/SGPT 24 U/L (<=46); Albumin, Serum 4.2 g/dL (3.5-5.0); Alkaline Phosphatase 63 U/L (40-129); Anion Gap 10 (5-15); BUN 18 mg/dL (4-19); BUN/Creat Ratio 17.6 RATIO (10-20); Bilirubin, Direct 0.11 mg/dL (0.00-0.30); Calcium,Total 8.6 mg/dL (7.6-11.0); Carbon Dioxide 25.5 mmol/L (21.0-32.0); Chloride 104 mmol/L (98-108); Estimated Creatinine Clearance 91.46 ml/min (50-250); Globulin 2.5 g/dL (2.2-4.2); Glucose 139 mg/dL (70-99); Lipase 31 U/L (13-75); Magnesium 2.7 mg/dL (1.5-2.2); Potassium 4.2 mmol/L (3.3-5.1); Troponin T High Sensitivity < 6 ng/L (<=22)
== END 2025-05-07 07:06 | disposition home or self-care (01) ==
PROVIDERS: Emergency Provider Emergency Medicine; Visit Provider Emergency Medicine
DX: R07.9 Chest pain, unspecified (principal); I45.6 Pre-excitation syndrome; F17.210 Nicotine dependence, cigarettes, uncomplicated
CPT/HCPCS: 71046; 80048; 80076; 83690; 83735; 84484; 85025; 93005; 99283; A4216

== ENCOUNTER 2025-05-19 06:55 | Emergency (ER) | payer SELFPAY ==
[2025-05-19 06:56] VITALS: BP 114/66; PULSE 66; RESP 20; TEMP 36.4; O2SAT 99; BMI 24.5
--- NOTE | 2025-05-19 07:08 | RAD_ITS ---
PROCEDURE: CHEST 1 VIEW (PORTABLE) 05/19/2025 REASON FOR EXAM: CHEST PAIN TECHNIQUE: Frontal view of the chest. COMPARISON: Two-view chest, 05/07/2025 FINDINGS: The lungs are clear. The heart borders mediastinum and pulmonary vascular pattern are normal. The upper abdominal bowel gas pattern is normal. There are no bony abnormalities. RAD/Chest 1 View (Portable) IMPRESSION: No evidence of acute cardiopulmonary pathology. Reading Location: [id number]
--- NOTE | 2025-05-19 07:08 | EKG12_ITS ---
Test Reason : CP Blood Pressure : */* mmHG Vent. Rate : 62 BPM Atrial Rate : 62 BPM P-R Int : 126 ms QRS Dur : 130 ms QT Int : 442 ms P-R-T Axes : 33 -8 74 degrees QTcB Int : 448 ms Normal sinus rhythm Qknci-Mflkuhtcr-Hiray Abnormal ECG Confirmed by BRAN ARIZA, ELIZABETH ([id number]), photo editor EREN MENDOZA ([id number]) on 05/20/2025 8:32:38 AM Referred By: RU Confirmed By: ELIZABETH SOTOMAYOR MD
--- NOTE | 2025-05-19 07:09 | ED.VIS.CHEST ---
HPI History of Present Illness Chief Complaint: Chest Pain Detail of Chief Complaint: Chest pain Informant: patient Narrative Narrative: Patient presents to the emergency department with complaint of chest discomfort that started around 7 PM yesterday. Discomforts been continuous and he describes it as a dull congestion. The pain does not radiate and is left side of his chest near the sternum. He denies nausea or vomiting. He denies diaphoresis. Does not seem to be exertional. Patient states the pain at times is somewhat increased with deep breath or if he turns to the side. He denies any injury to his chest. Had similar discomfort over a week ago and was seen in the emergency department and had workup at that time. He had recent travel to [place] a month ago. No history of PE or DVT. He is a smoker. He has no heart history otherwise. 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 He denies racing heart. He denies syncopal episodes. He denies fever or cough. [facility] Medical History Nmkom-Edscutsqy-Yqhra (WPW) syndrome Home Medications ?Medication ?Instructions ?Recorded ?Last Taken ?Type aspirin 81 mg tablet,delayed 81 mg PO DAILY 05/19/25 Unknown History release atorvastatin 40 mg tablet 40 mg PO DAILY 05/19/25 Unknown History Allergy/AdvReac Type Severity Reaction Status Date / Time No Known Allergies Allergy Verified 05/07/25 05:42 Surgical History no surgical history Social History (Updated 04/08/25 @ 06:[address] Alan Parker DO) Smoking Status: Current every day smoker tobacco type: cigarettes alcohol intake: current alcohol intake frequency: holidays/special occasions only ROS ROS ED Review of Systems ROS Unobtainable: other Constitutional Constitutional ED: Reports lethargy; Denies chills, fever(s), sweats or weight loss Eyes Eyes: Denies blurry vision, change in vision or diplopia ENT ENT ED: Denies rhinorrhea or sore throat Cardiovascular Cardiovascular: Reports chest pain; Denies orthopnea or racing heartbeat Respiratory/Chest Respiratory/Chest: Denies cough, dyspnea, dyspnea on exertion, orthopnea or sputum Gastrointestinal Gastrointestinal: Denies abdominal pain, diarrhea, nausea or vomiting Genitourinary Genitourinary ED: Denies dysuria, hematuria or urinary frequency Musculoskeletal Musculoskeletal: Denies arthralgias, back pain, myalgias or neck pain Integumentary Denies abscess, Abrasions or rash Neurologic Neurologic: Denies headache(s) or weakness Psychiatric Psychiatric: Denies anxiety, depression or suicidal thoughts Endocrine Endocrinology: Denies polydipsia, polyphagia or polyuria Hematologic/Lymphatic Hematologic/Lymphatic: Denies easy bleeding, easy bruising or lymphadenopathy Allergic/Immunologic Allergic/Immunologic ED: Denies mouth swelling, tongue swelling or urticaria EXAM Physical Exam Const Vital Signs: 05/19/25 06:56 05/19/25 06:59 05/19/25 07:10 Temperature 97.6 F L Temperature Source Oral Pulse Rate 66 Respiratory Rate 20 H Respiratory Effort Normal Blood Pressure 114/66 Blood Pressure Mean 82 Pulse Ox 99 Oxygen Delivery Method Room Air Room Air Positive well nourished and well developed General Appearance ED: well developed and NAD HEENT Reports TM's clear and moist mucous membranes normocephalic and atraumatic; Negative for trauma or tenderness Tympanic Membrane ED: Yes TM's clear Eyes PERRL and EOMs intact bilaterally General Eye ED: Negative for pale conjunctiva or scleral icterus Neck no lymphadenopathy, supple and no JVD General: Negative for tenderness Chest Wall inspection of chest normal and palpation of chest normal Chest: Negative for tenderness Resp normal respiratory effort and clear to auscultation bilaterally Effort and Inspection: Negative for respiratory distress or pain with movement Auscultation: Negative for rhonchi, wheezes or diminished lung sounds Cardio regular rate, regular rhythm, S1 normal heart sound, S2 normal heart sound and no murmurs Peripheral Pulses: pulses 2+ throughout GI normal to inspection, nondistended, normoactive bowel sounds, soft to palpation, non-tender, non-distended and no masses Back/Spine no CVA tenderness and no thoracic nor lumbar tenderness Extremity normal to inspection General Extremety ED: Negative for edema General Extremity: Negative for edema Neuro oriented x3, CN's II-XII intact bilaterally, no sensory deficits noted and gait normal Sensorium / Orientation: awake, alert, oriented to person, oriented to place and oriented to time Motor Exam: strength 5/5 throughout and strength abnormal Psych mental status grossly normal Skin no rashes or lesions noted and no wounds Heart Score History: Slightly/Non-Suspicious ECG: Nonspecific Repolarization Age: </= 45 years Risk Factors: 1 or 2 Risk Factors Troponin: </= Normal Limit Score: 2 MDM MDM MDM Narrative Medical decision making narrative: Patient presents with a vague discomfort is localized to the left chest. No other associated symptoms. Discomfort is not exertional. Clinically looks well. EKG obtained arrival showed a sinus rhythm with a ventricular rate of 62 bpm with evidence for WPW with noted delta waves. EKG is unchanged from prior when compared with May 07, 2025. CBC with differential obtained showed white count 12.5 with hemoglobin 17.4 and platelet count of 301. Chemistries were unremarkable. Troponin was normal at 10. D-dimer normal at 0.27. 1 view chest x-ray was unremarkable. Patient has a heart score of 2. Low suspicion for acute coronary syndrome. Recommended outpatient follow-up with his primary care physician within next 5 to 7 days. Advised to return if exertional symptoms, worsening pain, shortness of breath, or condition should worsen anyway. Lab Data Attestation: I reviewed the patient's lab results. Labs: Laboratory Results - last 24 hr 05/19/25 07:03 WBC 12.5 H RBC 5.36 Hgb 17.4 H Hct 50.4 MCV 94.0 MCH 32.5 H MCHC 34.5 RDW Std Deviation 42.6 RDW Coeff of Tiara 12.2 Plt Count 301 MPV 9.3 Immature Gran % (Auto) 0.400 Neut % (Auto) 66.3 Lymph % (Auto) 20.5 Major % (Auto) 9.1 Eos % (Auto) 3.1 Baso % (Auto) 0.6 Absolute Neuts (auto) 8.3 H Absolute Lymphs (auto) 2.57 Nucleated RBC % 0 D-Dimer Quant (PE/DVT) 0.27 Sodium 140 Potassium 3.9 Chloride 104 Carbon Dioxide 25.9 Anion Gap 9 BUN 18 Creatinine 0.92 Estim Creat Clear Calc 101.40 Est GFR (MDRD) Non-Af 104 BUN/Creatinine Ratio 19.8 Glucose 94 Calcium 8.6 Troponin T High Sens 10 D Radiography Diagnostic Testing: Clinical Impression(s) from Imaging Studies Chest X-Ray 05/19/25 07:08 IMPRESSION: No evidence of acute cardiopulmonary pathology. Reading Location: [facility] 1 view chest x-ray obtained interpreted by myself as no evidence of infiltrate or pneumothorax or acute disease process. Radiology in agreement. EKG Initial EKG: Attestation: I personally reviewed and interpreted this EKG as follows: Comments: Sinus rhythm with ventricular rate of 62 bpm with evidence for WPW Prior EKG tracings: available for review Prior: Unchanged Discharge Plan Triage Chief Complaint: Chest Pain ED Provider: Arnaud Hernandez Dx/Rx/DC Orders Clinical Impression: Chest pain, History of Dxmon-Pkdpfmvpf-Idnvk (WPW) syndrome Instructions: ED Chest Pain, Uncertain Cause Prescriptions: No Action atorvastatin 40 mg tablet 40 mg PO DAILY aspirin 81 mg tablet,delayed release (DR/EC) 81 mg PO DAILY Primary Care Provider: Care Physician,No Primary Referrals: Roberto Carlos Pang MD [Med Staff - Active Staff] - 5-7 Days Care Physician,No Primary [Primary Care Provider] - Print Language: Irish Disposition Disposition: Home, Self Care
[2025-05-19 07:18] LABS: Hematocrit 50.4 % (40-54); Hemoglobin 17.4 g/dL (13.0-16.5); Immature Granulocytes Count 0.050 X10^3/uL (0.0-0.0); Mean Corp Hgb Conc 34.5 g/dL (32-36); Mean Corpuscular Volume 94.0 fL (80-94); Mean Platelet Vol. 9.3 fl (6.2-12.0); NRBC Flagged by Analyzer 0 % (0-5); Platelet Count 301 K/mm3 (150-450); RBC Distribution Width CV 12.2 % (11.6-14.6); RBC Distribution Width SD 42.6 fl (35.1-43.9); Red Blood Count 5.36 M/mm3 (4.6-6.2); White Blood Count 12.5 K/mm3 (4.4-11.0)
[2025-05-19] MEDS: 0.9% Normal Saline (1000mL) 1,000 ML 150 ML IV (07:22)
[2025-05-19 07:43] LABS: Anion Gap 9 (5-15); BUN 18 mg/dL (4-19); BUN/Creat Ratio 19.8 RATIO (10-20); Calcium,Total 8.6 mg/dL (7.6-11.0); Carbon Dioxide 25.9 mmol/L (21.0-32.0); Chloride 104 mmol/L (98-108); Estimated Creatinine Clearance 101.40 ml/min (50-250); Glucose 94 mg/dL (70-99); Potassium 3.9 mmol/L (3.3-5.1); Troponin T High Sensitivity 10 ng/L (<=22)
[2025-05-19 08:10] LABS: D-Dimer Quantitative (DVT/PE) 0.27 FEU/ug/m (0.27-0.49)
[2025-05-19 08:46] VITALS: BP 111/81; PULSE 64; RESP 18; TEMP 36.6; O2SAT 99
== END 2025-05-19 08:47 | disposition home or self-care (01) ==
PROVIDERS: Emergency Provider Emergency Medicine; Visit Provider Emergency Medicine
DX: R07.9 Chest pain, unspecified (principal); I45.6 Pre-excitation syndrome; F17.210 Nicotine dependence, cigarettes, uncomplicated
CPT/HCPCS: 71045; 80048; 84484; 85025; 85379; 93005; 96360; 99284; A4216

== ENCOUNTER 2025-06-10 06:44 | Emergency (ER) | payer SELFPAY ==
[2025-06-10 06:46] VITALS: BP 116/69; PULSE 59; RESP 16; TEMP 36.3; O2SAT 100; BMI 24.5
--- NOTE | 2025-06-10 07:09 | EDS_ITS ---
HPI History of Present Illness Chief Complaint: General Illness Informant: patient Onset/Context/Timing Onset: Days (2) Context: Gradual Onset Timing: Continuous Quality: Fatigued Location: Generalized Worsened by: Nothing Relieved by: Nothing Narrative Narrative: Patient presents with generalized fatigue that has been getting worse over the past 2 days. Patient states he just feels tired and weak. Patient denies any fevers or chills. Patient does admit to some rhinorrhea. Patient denies any chest pain or shortness of breath. Patient states nothing makes his symptoms better and nothing makes them worse. Patient states he is sleeping adequately. Patient denies any sick contacts. [facility] Medical History Ssucq-[id number]-Baqca (WPW) syndrome Home Medications ?Medication ?Instructions ?Recorded ?Last Taken ?Type aspirin 81 mg tablet,delayed 81 mg PO DAILY 05/19/25 U nknown History release atorvastatin 40 mg tablet 40 mg PO DAILY 05/19/25 Unkn own History Allergy/AdvReac Type Severity Reaction Status Date / Time No Known Allergies Allergy Verified 06/10/25 06:45 Surgical History no surgical history no surgical history Social History Smoking Status: Current every day smoker tobacco type: cigarettes alcohol intake: current alcohol intake frequency: holidays/special occasions only ROS ROS ED Constitutional Constitutional ED: Denies chills or fever(s) Eyes Eyes: Denies blurry vision or change in vision ENT ENT ED: Reports rhinorrhea; Denies sore throat Cardiovascular Cardiovascular: Denies chest pain or palpitations Respiratory/Chest Respiratory/Chest: Denies cough or dyspnea Gastrointestinal Gastrointestinal: Denies nausea or vomiting Genitourinary Genitourinary ED: Denies dysuria or hematuria Musculoskeletal Musculoskeletal: Denies back pain or neck pain Integumentary Denies abscess or rash Neurologic Neurologic: Reports weakness; Denies headache(s) Allergic/Immunologic Allergic/Immunologic ED: Denies mouth swelling or urticaria EXAM Physical Exam Const Vital Signs: 06/10/25 06:46 06/10/25 06:46 06/10/25 07:33 Temperature 97.4 F L Temperature Source Oral Pulse Rate 59 L Pulse Rate [Lying] 67 Pulse Rate [Sitting (for 1 minute prior to obtaining)] 67 Pulse Rate [Standing (for 1 minute prior to obtaining)] 67 Respiratory Rate 16 Respiratory Effort Normal Respiratory Pattern Normal Blood Pressure 116/69 Blood Pressure [Lying] 116/57 L Blood Pressure [Sitting (for 1 minute prior to obtaining)] 110/66 Blood Pressure [Standing (for 1 minute prior to obtaining)] 116/61 Blood Pressure Mean 84 Blood Pressure Mean [Lying] 76 Blood Pressure Mean [Sitting (for 1 minute prior to obtaining)] 80 Blood Pressure Mean [Standing (for 1 minute prior to obtaining)] 79 Pulse Ox 100 Oxygen Delivery Method Room Air Positive well nourished and well developed General Appearance ED: well developed and NAD HEENT Reports moist mucous membranes Neck supple and no JVD Resp normal respiratory effort Auscultation: wheezes expiratory wheezes and scattered wheezes Cardio regular rate and regular rhythm GI non-tender and non-distended Palpation: soft Neuro oriented x3, CN's II-XII intact bilaterally and no sensory deficits noted Sensorium / Orientation: alert Motor Exam: strength 5/5 throughout MDM MDM MDM Narrative Medical decision making narrative: Differential diagnosis includes viral illness, pneumonia, electrolyte abnormality, dehydration, and anxiety. CBC will be obtained to assess for leukocytosis or anemia. Basic metabolic profile will be obtained to assess for electrolyte abnormality and renal function. Chest x-ray will be obtained to assess for pneumonia or bronchitis. COVID-19, influenza, and RSV PCR will be obtained to assess for viral illness. History & Record Review Additional record(s) reviewed:: Prior ED visit and Prior labs Lab Data Attestation: I reviewed the patient's lab results. Lab results narrative: CBC was reviewed and was essentially within normal limits. Basic metabolic profile was reviewed and was within normal limits. COVID-19 PCR was reviewed and was negative. Influenza PCR was reviewed and was negative for influenza A and influenza B. RSV PCR was reviewed and was negative. Labs: Laboratory Results - last 24 hr 06/10/25 07:41 WBC 8.6 RBC 5.32 Hgb 17.4 H Hct 50.2 MCV 94.4 H MCH 32.7 H MCHC 34.7 RDW Std Deviation 42.7 RDW Coeff of Tiara 12.4 Plt Count 221 MPV 9.9 Immature Gran % (Auto) 0.200 Neut % (Auto) 57.4 Lymph % (Auto) 27.7 Gregory % (Auto) 8.9 Eos % (Auto) 5.1 H Baso % (Auto) 0.7 Absolute Neuts (auto) 4.9 Absolute Lymphs (auto) 2.37 Nucleated RBC % 0 Sodium 139 Potassium 4.8 Chloride 105 Carbon Dioxide 26.5 Anion Gap 8 BUN 14 Creatinine 0.90 Estim Creat Clear Calc 103.65 Est GFR (MDRD) Non-Af 107 BUN/Creatinine Ratio 15.4 Glucose 86 Calcium 8.8 Radiography Chest X-Ray - ED: 2 View, Read by ED Physician, Read by Radiologist and No Acute Disease Diagnostic Testing: Clinical Impression(s) from Imaging Studies Chest X-Ray 06/10/25 07:18 IMPRESSION: NEGATIVE CHEST Reading Location: [id number] PA and lateral chest x-ray was obtained. There are 2 views. On my independent interpretation, lung rice are clear. There is normal cardiac silhouette. Bony thorax is normal. There is no acute process noted. Radiologist also interpreted the x-ray and agrees. Treatment and Re-Evaluation :: Smoking cessation was briefly discussed. Patient was given IV fluids. Patient was feeling better on reevaluation. Patient was advised of his findings. Patient was instructed to drink plenty of fluids. Patient was instructed to take Tylenol or ibuprofen as needed for any aches or fevers. Patient was instructed to return if worse in any way. Patient was instructed to follow-up with his primary care physician in 5 to 7 days. Patient understood and was agreeable with the plan. All questions were answered. Discharge Plan Triage Chief Complaint: General Illness ED Provider: Alan Parker Dx/Rx/DC Orders Clinical Impression: Fatigue, Viral illness Instructions: ED Viral Syndrome (Adult), ED Weakness Uncertain Cause Prescriptions: No Action atorvastatin 40 mg tablet 40 mg PO DAILY aspirin 81 mg tablet,delayed release (DR/EC) 81 mg PO DAILY Primary Care Provider: Care Physician,No Primary Referrals: Care Physician,No Primary [Primary Care Provider] - Nadira Slaguhter NP-C [Non-Staff] - 5-7 Days Print Language: Malay Disposition Disposition: Home, Self Care
--- NOTE | 2025-06-10 07:18 | RAD_ITS ---
PROCEDURE: CHEST PA AND LATERAL 06/10/2025 REASON FOR EXAM: WHEEZING TECHNIQUE: CHEST PA AND LATERAL COMPARISON: Prior study dated May 19, 2025. FINDINGS: Hardware: None Heart: The heart size is normal. Mediastinum: The mediastinal contour is unremarkable. Lungs: The lungs are clear. Bones: The bones are unremarkable. RAD/Chest PA and Lateral IMPRESSION: NEGATIVE CHEST Reading Location: [id number]
[2025-06-10 07:33] VITALS: BP 110/66; BP 116/57; BP 116/61; PULSE 67
[2025-06-10] MEDS: 0.9% Normal Saline (1000mL) 1,000 ML 1000 ML IV (07:36)
[2025-06-10 07:50] LABS: Hematocrit 50.2 % (40-54); Hemoglobin 17.4 g/dL (13.0-16.5); Immature Granulocytes Count 0.020 X10^3/uL (0.0-0.0); Mean Corp Hgb Conc 34.7 g/dL (32-36); Mean Corpuscular Volume 94.4 fL (80-94); Mean Platelet Vol. 9.9 fl (6.2-12.0); NRBC Flagged by Analyzer 0 % (0-5); Platelet Count 221 K/mm3 (150-450); RBC Distribution Width CV 12.4 % (11.6-14.6); RBC Distribution Width SD 42.7 fl (35.1-43.9); Red Blood Count 5.32 M/mm3 (4.6-6.2); White Blood Count 8.6 K/mm3 (4.4-11.0)
--- OUTSIDE RECORDS SUMMARY | 2025-06-10 08:12 | XMS RPT_ITS | CCD ---
Author Organization [facility] Care Team Providers Care Contract Admin Name Role Phone Unavailable Primary Care Provider Unavailabl e SELF Referring Unavailable PHYSICIAN, NONE Primary Care Physician Unavailab Zaira Rodgers Unavailable Unavailable ZOIE GUZMAN DO Attending Unavailable [...] Unavailable Dr. Alan Parker DO Emergency Provider Care Physician, No Primary Primary Care Provider Unavailable Dr. Alan Parker DO Attending Provider Rebecca NIXON, Dr. Pedro Emergency Provider Dr. Willis Fernandez DO Attending Provider David NIXON, Dr. Lares Emergency Provider [phone] Care Physician, No Primary Primary Care Unava ilable Alan Parker Attending Unavailable Willis Fernandez Attending Unavailable Care Physician, No Primary Primary Care Unava ilable Arnaud Hernandez Attending Unavailable Care Physician, No Primary Primary Care Unava ilable Medications Current Medications Medication Drug Class(es) Dates Sig (Normalized) Sig (Original) aspirin 81 mg delayed release oral tablet (3 sources) Platelet Aggregation Inhibitor, Nonsteroidal Anti-inflammatory Drug Start: 05-19-2025 take 1 tablet by mouth once daily Aspirin 81 mg tablet,delayed release (DR/EC) Active 81 mg PO DAILY May 19, 2025 12:00am Start: 08-08-2024 aspirin 81 mg oral delayed release tablet Dose : 81 mg = 1 tab(s), Oral, qDay, # 30 tab(s), 11 Refill(s), Pharmacy: [id number], 175.3, cm, 08/08/24 8:52:00 EDT, Height, kg, 08/08/24 8:52:00 EDT, Dosing Weight Start Date: 08/08/24 Status: Ordered atorvastatin 40 mg oral tablet (3 sources) HMG-CoA Reductase Inhibitor Start: 05-19-2025 take 1 tablet by mouth once daily Atorvastatin 40 mg tablet Active 40 mg PO DAILY May 19, 2025 12:00am Start: 08-08-2024 Lipitor 40 mg oral tablet Dose : 40 mg = 1 tab(s), Oral, qDay, # 30 tab(s), 11 Refill(s), Pharmacy: [facility], 175.3, cm, 08/08/24 8:52:00 EDT, Height, kg, 08/08/24 8:52:00 EDT, Dosing Weight Start Date: 08/08/24 Status: Ordered benzonatate 100 mg oral capsule (1 source) Non-narcotic Antitussive Start: 07-02-2024 take 1 capsule by mouth every eight hours as needed benzonatate (TESSALON PERLE) 100 mg capsule Take 1 capsule by mouth three times a day as needed. 21 capsule 07/02/2024 Active [place] (Nk) (1 source) Start: 05-07-2025 [place] (Nk) Active May 07, 2025 12:00am Completed/Discontinued Medications Medication Drug Class(es) Dates Sig (Normalized) Sig (Original) penicillin v potassium 500 mg oral tablet (3 sources) Start: 04-08-2025 End: 05-07-2025 take 1 tablet by mouth four times daily Penicillin V Potassium 500 mg tablet Discontinued 500 mg PO 4 TIMES DAILY 40 0 April 08, 2025 12:00am May 07, 2025 5:46am Problems Problem Classification Problem Date Documented Da te Episodic/Chronic Chronic obstructive pulmonary disease and bronchiectasis (5 sources) Bronchitis; Translations: [Bronchitis, not specified as acute or chronic] Onset: 07-01-2024 07-01-2024 Episodic Conduction disorders (6 sources) Conduction disorder of the heart; 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 Disorders of teeth and jaw (4 sources) Dental caries; Translations: [Dental caries, unspecified] Onset: 04-13-2025 04-08-2025 Episodic Nonspecific chest pain (7 sources) Atypical chest pain; Translations: [Chest pain] Onset: 08-08-2024 08-01-2024 Episodic Other circulatory disease (1 source) H/O: heart disorder; Translations: [Personal history of other diseases of the circulatory system] 05-19-2025 Episodic Other upper respiratory infections (1 source) Acute upper respiratory infection; Translations: [Acute upper respiratory infection, unspecified] 07-02-2024 Episodic Residual codes; unclassified (5 sources) Tobacco use and exposure - finding; Translations: [Tobacco use] 04-08-2025 Episodic Results Test Name Value Interpretation Reference Range Facility 12 Lead EKGon 05-19-2025 12 Lead EKG [facility] Cardiovascular Services [address] [place] [address] 12 Lead EKG 05/19/25 0658 MR#: [id number] Acct: [id number] Name: IRWIN ROMERO Rep #: [id number] : 1980 45 From: Roberto Carlos Pang MD Attending Dr: Status: DEP ER Ordering Dr: Arnaud Hernandez DO Date: 05/19/25 Location: ED Sex: M C Admitted: Test Reason : CP Blood Pressure : */* mmHG Vent. Rate : 62 BPM Atrial Rate : 62 BPM P-R Int : 126 ms QRS Dur : 130 ms QT Int : 442 ms P-R-T Axes : 33 -8 74 degrees QTcB Int : 448 ms Normal sinus rhythm Lnfzw-Lviiwadqi-Pgn te Abnormal ECG Confirmed by ROBERTO CARLOS PANG MD ([id number]), assistant production editor EREN MENDOZA ([id number]) on 05/20/2025 8:32:38 AM Referred By: RU Confirmed By: ROBERTO CARLOS PANG MD 05/20/25 0832 Date Roberto Carlos Pang MD CC: Dr. Arnaud Hernandez, DO; No Primary Care Physician Signed Normal [facility] Absolute lymphocyte countOrd ered By: Arnaud Hernandez on 05-19-2025 Lymphocytes Auto (Unsp spec) [#/Vol] 2.57 10*3/uL 0.83-4.51 [facility] Absolute neutrophil countOrd ered By: Arnaud Hernandez on 05-19-2025 Neutrophils (Bld) [#/Vol] 8.3 10*3/uL High 2.0-7.7 [facility] Anion gap in Serum or Plasma Ordered By: Arnaud Hernandez on 05-19-2025 Anion gap [Moles/Vol] 9 mmol/L 5-15 [facility] Automated lymphocyte count a s percentage of total leukocytesOrdered By: Arnaud Hernandez on 05-19-2025 Lymphocytes/100 WBC Auto (Unsp spec) 20.5 % 19-41 [facility] BUN/creatinine ratioOrdered By: Arnaud Hernandez on 05-19-2025 Urea nitrogen/Creatinine [Mass ratio] 19.8 mg/mg 10- [facility] Basic Metabolic Profile (BMP )on 05-19-2025 BUN/CRE 19.8 RATIO Normal - [facility] Comment on above: Performed By: #### L 300.8000, L501.4021, L100.0100, L500.2500 #### [facility] [address] [place], [address] Calcium [Mass/Vol] 8.6 mg/dL Normal 7.6-11.0 [facility] Comment on above: Performed By: #### L 300.8000, L501.4021, L100.0100, L500.2500 #### [facility] [address] [place], [address] Chloride [Moles/Vol] 104 mmol/L Normal 98-108 [facility] Comment on above: Performed By: #### L 300.8000, L501.4021, L100.0100, L500.2500 #### [facility] [address] [place], [address] CO2 [Moles/Vol] 25.9 mmol/L Normal 21.0-32.0 [facility] Comment on above: Performed By: #### L 300.8000, L501.4021, L100.0100, L500.2500 #### [facility] [address] [place], [address] Creatinine [Mass/Vol] 0.92 mg/dL Normal 0.70-1.20 [facility] Comment on above: Performed By: #### L 300.8000, L501.4021, L100.0100, L500.2500 #### [facility] [address] [place], [address] ECRCL 101.40 ml/min Normal 50-250 [facility] Comment on above: Performed By: #### L 300.8000, L501.4021, L100.0100, L500.2500 #### [facility] [address] [place], [address] GAP 9 Normal 5-15 [facility] Comment on above: Performed By: #### L 300.8000, L501.4021, L100.0100, L500.2500 #### [facility] [address] [place], [address] GFR/1.73 sq M.predicted among non-blacks MDRD (S/P/Bld) [Vol rate/Area] 104 mL/min/{1.73_m2} Normal >60 [facility] Comment on above: Result Comment: mL/m in/1.73m2 CKD-EPI Creatinine Equation (2020) Performed By: #### L 300.8000, L501.4021, L100.0100, L500.2500 #### [facility] [address] [place], [address] Glucose [Mass/Vol] 94 mg/dL Normal 70-99 [facility] Comment on above: Performed By: #### L 300.8000, L501.4021, L100.0100, L500.2500 #### [facility] [address] [place], [address] Potassium [Moles/Vol] 3.9 mmol/L Normal 3.3-5.1 [facility] Comment on above: Performed By: #### L 300.8000, L501.4021, L100.0100, L500.2500 #### [facility] [address] [place], [address] Sodium [Moles/Vol] 140 mmol/L Normal 133-145 [facility] Comment on above: Performed By: #### L 300.8000, L501.4021, L100.0100, L500.2500 #### [facility] [address] [place], [address] Urea nitrogen [Mass/Vol] 18 mg/dL Normal 4-19 [facility] Comment on above: Performed By: #### L 300.8000, L501.4021, L100.0100, L500.2500 #### [facility] [address] [place], [address] Basophil percentageOrdered B y: Remus Ungur on 05-19-2025 Basophils/100 WBC (Bld) 0.6 % 0-1 [facility] CBC W/Diff, Automatedon Absolute Lymph 2.57 X10 3/uL Normal 0.83-4.51 [facility] Comment on above: Performed By: #### L 300.8000, L501.4021, L100.0100, L500.2500 #### [facility] [address] [place], [address] Absolute Neut 8.3 X10 3/uL High 2.0-7.7 [facility] Comment on above: Performed By: #### L 300.8000, L501.4021, L100.0100, L500.2500 #### [facility] [address] [place], [address] Basophils/100 WBC (Bld) 0.6 % Normal 0-1 [facility] Comment on above: Performed By: #### L 300.8000, L501.4021, L100.0100, L500.2500 #### [facility] [address] [place], [address] Eosinophils/100 WBC (Bld) 3.1 % Normal 0-5 [facility] Comment on above: Performed By: #### L 300.8000, L501.4021, L100.0100, L500.2500 #### [facility] [address] [place], [address] Erythrocyte distribution width (RBC) [Ratio] 12.2 % Normal 11.6-14.6 [facility] Comment on above: Performed By: #### L 300.8000, L501.4021, L100.0100, L500.2500 #### [facility] [address] [place], [address] Hematocrit (Bld) [Volume fraction] 50.4 % Normal 40-54 [facility] Comment on above: Performed By: #### L 300.8000, L501.4021, L100.0100, L500.2500 #### [facility] [address] [place], [address] Hemoglobin (Bld) [Mass/Vol] 17.4 g/dL High 13.0-16.5 [facility] Comment on above: Performed By: #### L 300.8000, L501.4021, L100.0100, L500.2500 #### [facility] [address] [place], [address] IG% 0.400 Normal 0.0-0.9 [facility] Comment on above: Result Comment: IG% - Immature Granulocytes (promyelocytes, myelocytes and metamyelocytes) > 1% indicates that a LEFT SHIFT is Present. Performed By: #### L 300.8000, L501.4021, L100.0100, L500.2500 #### [facility] [address] [place], [address] Lymphocytes/100 WBC (Bld) 20.5 % Normal 19-41 [facility] Comment on above: Performed By: #### L 300.8000, L501.4021, L100.0100, L500.2500 #### [facility] [address] [place], [address] MCH (RBC) [Entitic mass] 32.5 pg High 27.0-32.0 [facility] Comment on above: Performed By: #### L 300.8000, L501.4021, L100.0100, L500.2500 #### [facility] [address] [place], [address] MCHC (RBC) [Mass/Vol] 34.5 g/dL Normal 32-36 [facility] Comment on above: Performed By: #### L 300.8000, L501.4021, L100.0100, L500.2500 #### [facility] [address] [place], [address] MCV (RBC) [Entitic vol] 94.0 fL Normal 80-94 [facility] Comment on above: Performed By: #### L 300.8000, L501.4021, L100.0100, L500.2500 #### [facility] [address] [place], [address] Monocytes/100 WBC (Bld) 9.1 % Normal 0-10 [facility] Comment on above: Performed By: #### L 300.8000, L501.4021, L100.0100, L500.2500 #### [facility] [address] [place], [address] Neutrophils/100 WBC (Bld) 66.3 % Normal 47-70 [facility] Comment on above: Performed By: #### L 300.8000, L501.4021, L100.0100, L500.2500 #### [facility] [address] [place], [address] Nucleated RBC (Bld) [#/Vol] 0 10*3/uL Normal 0-5 [facility] Comment on above: Performed By: #### L 300.8000, L501.4021, L100.0100, L500.2500 #### [facility] [address] [place], [address] Platelet mean volume (Bld) [Entitic vol] 9.3 fL Normal 6.2-12.0 [facility] Comment on above: Performed By: #### L 300.8000, L501.4021, L100.0100, L500.2500 #### [facility] [address] [place], [address] Platelets (Bld) [#/Vol] 301 10*3/uL Normal 150-450 [facility] Comment on above: Performed By: #### L 300.8000, L501.4021, L100.0100, L500.2500 #### [facility] [address] [place], [address] RBC (Bld) [#/Vol] 5.36 10*6/uL Normal 4.6-6.2 [facility] Comment on above: Performed By: #### L 300.8000, L501.4021, L100.0100, L500.2500 #### [facility] [address] [place], [address] RDW SD 42.6 fl Normal 35.1-43.9 [facility] Comment on above: Performed By: #### L 300.8000, L501.4021, L100.0100, L500.2500 #### [facility] [address] [place], [address] WBC (Bld) [#/Vol] 12.5 10*3/uL High 4.4-11.0 [facility] Comment on above: Performed By: #### L 300.8000, L501.4021, L100.0100, L500.2500 #### [facility] [address] [place], [address] Carbon dioxide, total [Moles /volume] in Central venous bloodOrdered By: Arnaud Hernandez on 05-19-2025 CO2 [Moles/Vol] 25.9 mmol/L 21.0-32.0 [facility] Chest 1 View (Portable)on Chest 1 View (Portable) [facility] Imaging Services [address] [place] [address] Chest 1 View (Portable) MR#: [id number] Acct: [id number] Name: IRWIN ROMERO Rep #: [id number] : 1980 M 45 From: Lucas Escalante MD PCP: Care Physician,No Primary Status: PRE ER Study: Chest 1 View (Portable) Date of Exam: 05/19/25 Exam# [id number] Ordering Dr: Arnaud Hernandez DO PROCEDURE: CHEST 1 VIEW (PORTABLE) 05/19/2025 REASON FOR EXAM: CHEST PAIN TECHNIQUE: Frontal view of the chest. COMPARISON: Two-view chest, 05/07/2025 FINDINGS: The lungs are clear. The heart borders mediastinum and pulmonary vascular pattern are normal. The upper abdominal bowel gas pattern is normal. There are no bony abnormalities. RAD/Chest 1 View (Portable) IMPRESSION: No evidence of acute cardiopulmonary pathology. Reading Location: [id number] CC: Dr. Arnaud Hernandez DO; No Primary Care Physician Money Order Clerk: Signed Normal [facility] Chloride assayOrdered By: Ita Hernandez on 08-05-2025 Chloride [Moles/Vol] 104 mmol/L 98-108 [facility] D-Dimer Quantitative (DVT/PE )on 05-19-2025 D-DIMER QUANT 0.27 FEU/ug/m Normal 0.27-0.49 [facility] Comment on above: Result Comment: NORM AL D-Dimer level (<0.50) indicates no DVT or PE. Performed By: #### L 300.8000, L501.4021, L100.0100, L500.2500 #### [facility] [address] [place], [address] Emergency Department Summary on 05-19-2025 Emergency Department Summary [facility] Medical Records Department [address] [place] [address] Emergency Department Summary 05/19/25 MR#: [id number] Acct: [id number] Name: IRWIN ROMERO Rep #: [id number] : 1980 45 From: Arnaud Hernandez DO PCP: Care Physician,No Primary Status:DEP ER Location: ED HPI History of Present Illness Chief Complaint: Chest Pain Detail of Chief Complaint: Chest pain Informant: patient Narrative Narrative: Patient presents to the emergency department with complaint of chest discomfort that started around 7 PM yesterday. Discomforts been continuous and he describes it as a dull congestion. The pain does not radiate and is left side of his chest near the sternum. He denies nausea or vomiting. He denies diaphoresis. Does not seem to be exertional. Patient states the pain at times is somewhat increased with deep breath or if he turns to the side. He denies any injury to his chest. Had similar discomfort over a week ago and was seen in the emergency department and had workup at that time. He had recent travel to [place] a month ago. No history of PE or DVT. He is a smoker. He has no heart history otherwise. 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 He denies racing heart. He denies syncopal episodes. He denies fever or cough. [facility] Medical History Ukoet-Iwqtowspp-Nih te (WPW) syndrome Home Medications ???Medication ???Instructions ???Recorded ???Last Taken ???Type aspirin 81 mg tablet,delayed 81 mg PO DAILY 05/19/25 Unknown Hi story release atorvastatin 40 mg tablet 40 mg PO DAILY 05/19/25 Unknown Hi story Allergy/AdvReac Type Severity Reaction Status Date / Time No Known Allergies Allergy Verified 05/07/25 05:42 Surgical History no surgical history Social History (Updated 04/08/25 @ 06:[address] Alan Parker, DO) Smoking Status: Current every day smoker tobacco type: cigarettes alcohol intake: current alcohol intake frequency: holidays/special occasions only ROS ROS ED Review of Systems ROS Unobtainable: other Constitutional Constitutional ED: Reports lethargy; Denies chills, fever(s), sweats or weight loss Eyes Eyes: Denies blurry vision, change in vision or diplopia ENT ENT ED: Denies rhinorrhea or sore throat Cardiovascular Cardiovascular: Reports chest pain; Denies orthopnea or racing heartbeat Respiratory/Chest Respiratory/Chest: Denies cough, dyspnea, dyspnea on exertion, orthopnea or sputum Gastrointestinal Gastrointestinal: Denies abdominal pain, diarrhea, nausea or vomiting Genitourinary Genitourinary ED: Denies dysuria, hematuria or urinary frequency Musculoskeletal Musculoskeletal: Denies arthralgias, back pain, myalgias or neck pain Integumentary Denies abscess, Abrasions or rash Neurologic Neurologic: Denies headache(s) or weakness Psychiatric Psychiatric: Denies anxiety, depression or suicidal thoughts Endocrine Endocrinology: Denies polydipsia, polyphagia or polyuria Hematologic/Lymphat ic Hematologic/Lymphat ic: Denies easy bleeding, easy bruising or lymphadenopathy Allergic/Immunologi c Allergic/Immunologi c ED: Denies mouth swelling, tongue swelling or urticaria EXAM Physical Exam Const Vital Signs: 05/19/25 06:56 05/19/25 06:59 05/19/25 07:10 Temperature 97.6 F L Temperature Source Oral Pulse Rate 66 Respiratory Rate 20 H Respiratory Effort Normal Blood Pressure 114/66 Blood Pressure Mean 82 Pulse Ox 99 Oxygen Delivery Method Room Air Room Air Positive well nourished and well developed General Appearance ED: well developed and NAD HEENT Reports TM's clear and moist mucous membranes normocephalic and atraumatic; Negative for trauma or tenderness Tympanic Membrane ED: Yes TM's clear Eyes PERRL and EOMs intact bilaterally General Eye ED: Negative for pale conjunctiva or scleral icterus Neck no lymphadenopathy, supple and no JVD General: Negative for tenderness Chest Wall inspection of chest normal and palpation of chest normal Chest: Negative for tenderness Resp normal respiratory effort and clear to auscultation bilaterally Effort and Inspection: Negative for respiratory distress or pain with movement Auscultation: Negative for rhonchi, wheezes or diminished lung sounds Cardio regular rate, regular rhythm, S1 normal heart sound, S2 normal heart sound and no murmurs Peripheral Pulses: pulses 2+ throughout GI normal to inspection, nondistended, normoactive bowel sounds, soft to palpation, non-tender, non- distended and no masses Back/Spine no CVA tenderness and no thoracic nor lumbar tenderness Extremity normal to inspection General Extremety ED: Negative for edema General Extremity: Negative for ed (more content not included)... Normal [facility] Eosinophil percentageOrdered By: Arnaud Hernandez on 05-19-2025 Eosinophils/100 WBC (Bld) 3.1 % 0-5 [facility] Erythrocyte distribution wid th ratioOrdered By: Arnaud Hernandez on 05-19-2025 Erythrocyte distribution width (RBC) [Ratio] 12.2 % 11.6-14.6 [facility] Erythrocyte distribution wid th standard deviationOrdered By: Arnaud Hernandez on 05-19-2025 Erythrocyte distribution width (RBC) [Ratio] 42.6 fl 35.1-43.9 [facility] Glomerular filtration rate ( GFR) estimation/1.73 sq m using serum, plasma, or whole bOrdered By: Arnaud Hernandez on 05-19-2025 GFR/1.73 sq M.predicted among non-blacks MDRD (S/P/Bld) [Vol rate/Area] 104 mL/min/{1.73_m2} >60 [facility] Comment on above: mL/min/1.73m2 CKD-EP I Creatinine Equation (2020) Hematocrit Auto (Bld) [Volum e fraction]Ordered By: Arnaud Hernandez on 05-19-2025 Hematocrit (Bld) [Volume fraction] 50.4 % 40-54 [facility] Hemoglobin measurementOrdere d By: Arnaud Hernandez on 05-19-2025 Hemoglobin (Bld) [Mass/Vol] 17.4 g/dL High 13.0-16.5 [facility] Immature granulocytes/100 WB C Auto (Bld)Ordered By: Arnaud Hernandez on 05-19-2025 Immature granulocytes/100 WBC (Bld) 0.400 % 0.0-0.9 [facility] Comment on above: IG% - Immature Granu locytes (promyelocytes, myelocytes and metamyelocytes) > 1% indicates that a LEFT SHIFT is Present. L501.4021on 05-19-2025 Trop T High Sen 10 ng/L Normal <=22 [facility] Comment on above: Performed By: #### L 300.8000, L501.4021, L100.0100, L500.2500 #### [facility] [address] [place], [address] MCV (mean corpuscular volume ) determinationOrdered By: Arnaud Hernandez on 05-19-2025 MCV (RBC) [Entitic vol] 94.0 fL 80-94 [facility] Mean corpuscular hemoglobin (MCH) determinationOrdered By: Arnaud Hernandez on 05-19-2025 MCH (RBC) [Entitic mass] 32.5 pg High 27.0-32.0 [facility] Mean corpuscular hemoglobin concentration (MCHC) determinationOrdered By: Arnaud Hernandez on 05-19-2025 MCHC (RBC) [Mass/Vol] 34.5 g/dL 32-36 [facility] Mean platelet volume determi nationOrdered By: Arnaud Hernandez on 05-19-2025 Platelet mean volume (Bld) [Entitic vol] 9.3 fL 6.2-12.0 [facility] Monocyte percentageOrdered B y: Arnaud Hernandez on 05-19-2025 Monocytes/100 WBC (Bld) 9.1 % 0-10 [facility] Neutrophil percentageOrdered By: Arnaud Hernandez on 05-19-2025 Neutrophils/100 WBC (Bld) 66.3 % 47-70 [facility] Nucleated red blood cell per centageOrdered By: Arnaud Hernandez on 05-19-2025 Nucleated RBC/100 WBC (Bld) [Ratio] 0 % 0-5 [facility] Platelet countOrdered By: Ita Hernandez on 05-19-2025 Platelets (Bld) [#/Vol] 301 10*3/uL 150-450 [facility] Potassium measurement (mass/ volume)Ordered By: Arnaud Hernandez on 05-19-2025 Potassium (Unsp spec) [Mass/Vol] 3.9 mmol/L 3.3-5.1 [facility] RBC Auto (Bld) [#/Vol]Ordere d By: Arnaud Hernandez on 05-19-2025 RBC (Bld) [#/Vol] 5.36 10*6/uL 4.6-6.2 [facility] Serum creatinine measurement (mass/volume)Ordered By: Arnaud Hernandez on 05-19-2025 Creatinine [Mass/Vol] 0.92 mg/dL 0.70-1.20 [facility] Serum glucose measurement (m ass/volume)Ordered By: Arnaud Hernandez on 05-19-2025 Glucose [Mass/Vol] 94 mg/dL 70-99 [facility] Serum or plasma calcium terry urement (mass/volume)Ordered By: Arnaud Hernandez on 05-19-2025 Calcium [Mass/Vol] 8.6 mg/dL 7.6-11.0 [facility] Serum or plasma urea nitroge n measurement (mass/volume)Ordered By: Arnaud Hernandez on 05-19-2025 Urea nitrogen [Mass/Vol] 18 mg/dL 4-19 [facility] Sodium levelOrdered By: Hugo Hernandez on 05-19-2025 Sodium [Moles/Vol] 140 mmol/L 133-145 [facility] Troponin T HS 2 HRon 025 Trop T High Sen Normal <=22 [facility] Comment on above: Result Comment: Keagan hoffman via OM: Ordered Performed By: #### L 499.0042 ####[facility] [address] [place], [address] Troponin T HS 4 HRon 025 Trop T High Sen Normal <=22 [facility] Comment on above: Result Comment: Keagan hoffman via OM: Ordered Performed By: #### L 499.0043 #### [facility] [address] [place], [address] Troponin T.cardiac [Mass/vol ume] in Serum or Plasma by High sensitivity methodOrdered By: Arnaud Hernandez on 05-19-2025 Troponin T.cardiac High sensitivity method [Mass/Vol] 10 ng/L <22 [facility] Comment on above: Delta: < 6 on -544 White blood cell (WBC) count Ordered By: Arnaud Hernandez on 05-19-2025 WBC (Bld) [#/Vol] 12.5 10*3/uL High 4.4-11.0 [facility] 12 Lead EKGon 05-07-2025 12 Lead EKG [facility] [facility] [address] [place] [address] 12 Lead EKG 05/07/25 0546 MR#: [id number] Acct: [id number] Name: IRWIN ROMERO Rep #: [id number] : 1980 45 From: Roberto Carlos Pang MD Attending Dr: Status: DEP ER Ordering Dr: Willis Fernandez DO Date: 05/07/25 Location: ED Sex: M C Admitted: Test Reason : CHEST PAIN Blood Pressure : */* mmHG Vent. Rate : 67 BPM Atrial Rate : 67 BPM P-R Int : 116 ms QRS Dur : 136 ms QT Int : 446 ms P-R-T Axes : 28 38 34 degrees QTcB Int : 471 ms Normal sinus rhythm Cklop-Hbsxcwjxu-Kll te Abnormal ECG Confirmed by ROBERTO CARLOS PANG MD ([id number]), assistant production editor MATT MAHARAJ ([id number]) on 05/11/2025 9:02:33 AM Referred By: DOMINIC Confirmed By: ROBERTO CARLOS PANG MD 05/11/25 0902 Date Roberto Carlos Pang MD CC: Willis Andes, DO; No Primary Care Physician Signed Normal [facility] Absolute lymphocyte countOrd ered By: Willis Fernandez on 05-07-2025 Lymphocytes Auto (Unsp spec) [#/Vol] 2.97 10*3/uL 0.83-4.51 [facility] Absolute neutrophil countOrd ered By: Willis Fernandez on 05-07-2025 Neutrophils (Bld) [#/Vol] 5.4 10*3/uL 2.0-7.7 [facility] Anion gap in Serum or Plasma Ordered By: Willis Fernandez on 05-07-2025 Anion gap [Moles/Vol] 10 mmol/L 5- [facility] Automated lymphocyte count a s percentage of total leukocytesOrdered By: Willis Fernandez on 05-07-2025 Lymphocytes/100 WBC Auto (Unsp spec) 29.7 % - [facility] BUN/creatinine ratioOrdered By: Willis Fernandez on 05-07-2025 Urea nitrogen/Creatinine [Mass ratio] 17.6 mg/mg - [facility] Basic Metabolic Profile (BMP )on 05-07-2025 BUN/CRE 17.6 RATIO Normal - [facility] Comment on above: Performed By: #### L 100.0100, L500.3400, L501.4021, L501.2450, L501.5200, L500.2500 ####[facility] [address] [place], [address] Calcium [Mass/Vol] 8.6 mg/dL Normal 7.6-11.0 [facility] Comment on above: Performed By: #### L 100.0100, L500.3400, L501.4021, L501.2450, L501.5200, L500.2500 ####[facility] [address] [place], [address] Chloride [Moles/Vol] 104 mmol/L Normal 98-108 [facility] Comment on above: Performed By: #### L 100.0100, L500.3400, L501.4021, L501.2450, L501.5200, L500.2500 ####[facility] [address] [place], [address] CO2 [Moles/Vol] 25.5 mmol/L Normal 21.0-32.0 [facility] Comment on above: Performed By: #### L 100.0100, L500.3400, L501.4021, L501.2450, L501.5200, L500.2500 ####[facility] [address] [place], [address] Creatinine [Mass/Vol] 1.02 mg/dL Normal 0.70-1.20 [facility] Comment on above: Performed By: #### L 100.0100, L500.3400, L501.4021, L501.2450, L501.5200, L500.2500 ####[facility] [address] [place], [address] ECRCL 91.46 ml/min Normal 50-250 [facility] Comment on above: Performed By: #### L 100.0100, L500.3400, L501.4021, L501.2450, L501.5200, L500.2500 ####[facility] [address] [place], [address] GAP 10 Normal 5-15 [facility] Comment on above: Performed By: #### L 100.0100, L500.3400, L501.4021, L501.2450, L501.5200, L500.2500 ####[facility] [address] [place], [address] GFR/1.73 sq M.predicted among non-blacks MDRD (S/P/Bld) [Vol rate/Area] 92 mL/min/{1.73_m2} Normal >60 [facility] Comment on above: Result Comment: mL/m in/1.73m2 CKD-EPI Creatinine Equation (2020) Performed By: #### L 100.0100, L500.3400, L501.4021, L501.2450, L501.5200, L500.2500 ####[facility] [address] [place], [address] Glucose [Mass/Vol] 139 mg/dL High 70-99 [facility] Comment on above: Performed By: #### L 100.0100, L500.3400, L501.4021, L501.2450, L501.5200, L500.2500 ####[facility] [address] [place], [address] Potassium [Moles/Vol] 4.2 mmol/L Normal 3.3-5.1 [facility] Comment on above: Result Comment: Hemo lysis present, Results??could be affected. ?? Performed By: #### L 100.0100, L500.3400, L501.4021, L501.2450, L501.5200, L500.2500 ####[facility] [address] [place], [address] Sodium [Moles/Vol] 139 mmol/L Normal 133-145 [facility] Comment on above: Performed By: #### L 100.0100, L500.3400, L501.4021, L501.2450, L501.5200, L500.2500 ####[facility] [address] [place], [address] Urea nitrogen [Mass/Vol] 18 mg/dL Normal 4-19 [facility] Comment on above: Performed By: #### L 100.0100, L500.3400, L501.4021, L501.2450, L501.5200, L500.2500 ####[facility] [address] [place], [address] Basophil percentageOrdered B y: Willis Fernandez on 05-07-2025 Basophils/100 WBC (Bld) 0.8 % 0-1 [facility] Bilirubin directOrdered By: Willis Fernandez on 05-07-2025 Bilirubin.direct [Mass/Vol] 0.11 mg/dL 0.00-0.30 [facility] Comment on above: Hemolysis present, R esults could be affected. Bilirubin, totalOrdered By: Willis Fernandez on 05-07-2025 Bilirubin [Mass/Vol] 0.36 mg/dL 0.00-1.30 [facility] CBC W/Diff, Automatedon 04-15 Absolute Lymph 2.97 X10 3/uL Normal 0.83-4.51 [facility] Comment on above: Performed By: #### L 100.0100, L500.3400, L501.4021, L501.2450, L501.5200, L500.2500 #### [facility] [address] [place], [address] Absolute Neut 5.4 X10 3/uL Normal 2.0-7.7 [facility] Comment on above: Performed By: #### L 100.0100, L500.3400, L501.4021, L501.2450, L501.5200, L500.2500 #### [facility] [address] [place], [address] Basophils/100 WBC (Bld) 0.8 % Normal 0-1 [facility] Comment on above: Performed By: #### L 100.0100, L500.3400, L501.4021, L501.2450, L501.5200, L500.2500 #### [facility] [address] [place], [address] Eosinophils/100 WBC (Bld) 5.4 % High 0-5 [facility] Comment on above: Performed By: #### L 100.0100, L500.3400, L501.4021, L501.2450, L501.5200, L500.2500 #### [facility] [address] [place], [address] Erythrocyte distribution width (RBC) [Ratio] 12.2 % Normal 11.6-14.6 [facility] Comment on above: Performed By: #### L 100.0100, L500.3400, L501.4021, L501.2450, L501.5200, L500.2500 #### [facility] [address] [facility] [address] Hematocrit (Bld) [Volume fraction] 49.8 % Normal 40-54 [facility] Comment on above: Performed By: #### L 100.0100, L500.3400, L501.4021, L501.2450, L501.5200, L500.2500 #### [facility] [address] [place], [address] Hemoglobin (Bld) [Mass/Vol] 17.2 g/dL High 13.0-16.5 [facility] Comment on above: Performed By: #### L 100.0100, L500.3400, L501.4021, L501.2450, L501.5200, L500.2500 #### [facility] [address] [facility] [place], [address] IG% 0.200 Normal 0.0-0.9 [facility] Comment on above: Result Comment: IG% - Immature Granulocytes (promyelocytes, myelocytes and metamyelocytes) > 1% indicates that a LEFT SHIFT is Present. Performed By: #### L 100.0100, L500.3400, L501.4021, L501.2450, L501.5200, L500.2500 #### [facility] [address] [place], [address] Lymphocytes/100 WBC (Bld) 29.7 % Normal 19-41 [facility] Comment on above: Performed By: #### L 100.0100, L500.3400, L501.4021, L501.2450, L501.5200, L500.2500 #### [facility] [address] [place], [address] MCH (RBC) [Entitic mass] 32.3 pg High 27.0-32.0 [facility] Comment on above: Performed By: #### L 100.0100, L500.3400, L501.4021, L501.2450, L501.5200, L500.2500 #### [facility] [address] [place], [address] MCHC (RBC) [Mass/Vol] 34.5 g/dL Normal 32-36 [facility] Comment on above: Performed By: #### L 100.0100, L500.3400, L501.4021, L501.2450, L501.5200, L500.2500 #### [facility] [address] [place], [address] MCV (RBC) [Entitic vol] 93.6 fL Normal 80-94 [facility] Comment on above: Performed By: #### L 100.0100, L500.3400, L501.4021, L501.2450, L501.5200, L500.2500 #### [facility] [address] [place], [address] Monocytes/100 WBC (Bld) 10.2 % High 0-10 [facility] Comment on above: Performed By: #### L 100.0100, L500.3400, L501.4021, L501.2450, L501.5200, L500.2500 #### [facility] [address] [place], [address] Neutrophils/100 WBC (Bld) 53.7 % Normal 47-70 [facility] Comment on above: Performed By: #### L 100.0100, L500.3400, L501.4021, L501.2450, L501.5200, L500.2500 #### [facility] [address] [place], [address] Nucleated RBC (Bld) [#/Vol] 0 10*3/uL Normal 0-5 [facility] Comment on above: Performed By: #### L 100.0100, L500.3400, L501.4021, L501.2450, L501.5200, L500.2500 #### [facility] [address] [place], [address] Platelet mean volume (Bld) [Entitic vol] 9.9 fL Normal 6.2-12.0 [facility] Comment on above: Performed By: #### L 100.0100, L500.3400, L501.4021, L501.2450, L501.5200, L500.2500 #### [facility] [address] [place], [address] Platelets (Bld) [#/Vol] 263 10*3/uL Normal 150-450 [facility] Comment on above: Performed By: #### L 100.0100, L500.3400, L501.4021, L501.2450, L501.5200, L500.2500 #### [facility] [address] [place], [address] RBC (Bld) [#/Vol] 5.32 10*6/uL Normal 4.6-6.2 [facility] Comment on above: Performed By: #### L 100.0100, L500.3400, L501.4021, L501.2450, L501.5200, L500.2500 #### [facility] [address] [place], [address] RDW SD 42.1 fl Normal 35.1-43.9 [facility] Comment on above: Performed By: #### L 100.0100, L500.3400, L501.4021, L501.2450, L501.5200, L500.2500 #### [facility] [address] [place], [address] WBC (Bld) [#/Vol] 10.0 10*3/uL Normal 4.4-11.0 [facility] Comment on above: Performed By: #### L 100.0100, L500.3400, L501.4021, L501.2450, L501.5200, L500.2500 #### [facility] [address] [facility] [place], [address] Carbon dioxide, total [Moles /volume] in Central venous bloodOrdered By: Willis Fernandez on 05-07-2025 CO2 [Moles/Vol] 25.5 mmol/L 21.0-32.0 [facility] Chest PA and Lateralon 05-07 Chest PA and Lateral [facility] Imaging Services [address] [place] [address] Chest PA and Lateral MR#: [id number] Acct: [id number] Name: IRWIN ROMERO Rep #: [id number] : 1980 M 45 From: Red Yoder MD PCP: Care Physician,No Primary Status: [facility] ER Study: Chest PA and Lateral Date of Exam: 05/07/25 Exam# [id number] Ordering Dr: Willis Fernandez DO PROCEDURE: CHEST PA AND LATERAL 05/07/2025 REASON FOR EXAM: CHEST PAIN TECHNIQUE: CHEST PA AND LATERAL COMPARISON: None FINDINGS: Heart size and mediastinal configuration are within normal limits. There is no focal infiltrate or consolidation. There is no pneumothorax or effusion. There is no acute bony abnormality. There is no visible atherosclerosis. RAD/Chest PA and Lateral IMPRESSION: No acute process is identified in the chest. Reading Location: [facility] CC: Willis Fernandez DO; No Primary Care Physician Money Order Clerk: Signed Normal [facility] Chloride assayOrdered By: Cheryle Fernandez on 05-07-2025 Chloride [Moles/Vol] 104 mmol/L 98-108 [facility] Emergency Department Summary on 05-07-2025 Emergency Department Summary [facility] Medical Records Department [address] [place] [address] Emergency Department Summary 05/07/25 MR#: [id number] Acct: [id number] Name: IRWIN ROMERO Rep #: [id number] : 1980 45 From: Willis Fernandez DO PCP: Care Physician,No Primary Status:REG ER Location: ED HPI History of Present Illness Chief Complaint: Chest Pain Informant: patient Narrative Narrative: Patient is a 45-year-old male who reports a past medical history of Hgdnf-Hiwjbjkff-Ezf te disease but states he does not take any daily medications. He states that he gets up early for work and lay down around 8 PM last night. He states as he was laying down he noticed he had a vague midsternal chest discomfort. He states there was no associated nausea vomiting diaphoresis or shortness of breath. He denied any radiation of the pain. He states it was minimal in nature and he was able to go to sleep. He states he awoke this morning and still noticed a vague sensation of discomfort. He was able to get ready for work and was driving into work when he felt like his symptoms worsened. He states despite the worsening sensation of pressure he did not experience any type of palpitations nausea vomiting diaphoresis or shortness of breath. He states because of the persistent nature and increased severity of symptoms he had concerned this could be cardiac and therefore comes in for evaluation. [facility] Medical History Odvza-Hkrbjzpgb-Orv te (WPW) syndrome Home Medications ???Medication ???Instructions ???Recorded ???Last Taken ???Type NK 05/07/25 Unknown History Allergy/AdvReac Type Severity Reaction Status Date / Time No Known Allergies Allergy Verified 05/07/25 05:42 Surgical History no surgical history Social History (Updated 04/08/25 @ 06:[address] Alan Parker DO) Smoking Status: Current every day smoker tobacco type: cigarettes alcohol intake: current alcohol intake frequency: holidays/special occasions only ROS ROS ED Constitutional Constitutional ED: Denies chills or fever(s) ENT ENT ED: Denies rhinorrhea or sore throat Cardiovascular Cardiovascular: Reports chest pain; Denies palpitations or racing heartbeat Respiratory/Chest Respiratory/Chest: Reports cough; Denies dyspnea Gastrointestinal Gastrointestinal: Denies abdominal pain, diarrhea, nausea or vomiting Musculoskeletal Musculoskeletal: Denies back pain Integumentary Denies rash Neurologic Neurologic: Denies headache(s) Hematologic/Lymphat ic Hematologic/Lymphat ic: Denies easy bleeding or easy bruising EXAM Physical Exam Const Vital Signs: 05/07/25 05:44 05/07/25 05:49 05/07/25 06:00 Temperature 97.7 F L Temperature Source Oral Pulse Rate 66 72 67 Respiratory Rate 20 H 24 H 20 H Blood Pressure 129/67 H 115/73 Blood Pressure Mean 87 86 Pulse Ox 99 100 Oxygen Delivery Method Room Air 05/07/25 06:15 05/07/25 06:17 05/07/25 06:30 Temperature Temperature Source Pulse Rate 62 59 L Respiratory Rate 14 21 H Blood Pressure 112/73 117/78 Blood Pressure Mean 85 91 Pulse Ox 100 98 Oxygen Delivery Method Positive well nourished and well developed General Appearance ED: well developed; Negative for pallor HEENT HEENT Narrative: Normocephalic atraumatic No tongue or lip swelling no oral lesions no airway edema or compromise; no signs of infection noted in the posterior pharynx Eyes PERRL and EOMs intact bilaterally General Eye ED: Negative for scleral icterus Neck supple and no JVD Chest Wall Chest Narrative: There is mild pain with palpation in the anterior chest wall near the lower portion of the sternum without bony deformity or subcutaneous emphysema Resp normal respiratory effort and clear to auscultation bilaterally Resp Narrative: No nasal flaring retractions tachypnea or accessory muscle use Cardio regular rate and regular rhythm Rate: other Other Details: Regular rate and rhythm without murmurs rubs or gallop Radial and carotid pulses are equal and symmetric GI non-distended and no masses GI Narrative: Abdomen is soft and nondistended with normal active bowel sounds. There is mild pain with palpation in the midepigastric region without voluntary guarding or rigidity. No pulsatile mass or fluid wave Auscultation: normoactive bowel sounds Palpation: soft Extremity normal to inspection Extremity Narrative: No asymmetric edema no pitting edema negative Homans' sign bilaterally Neuro oriented x3, CN's II-XII intact bilaterally and no sensory deficits noted Sensorium / Orientation: alert Motor Exam: strength 5/5 throughout Psych mental status grossly normal Skin no rashes or lesions noted and no wounds Skin Narra (more content not included)... Normal [facility] Eosinophil percentageOrdered By: Willis Fernandez on 05-07-2025 Eosinophils/100 WBC (Bld) 5.4 % High 0-5 [facility] Erythrocyte distribution wid th ratioOrdered By: Willis Fernandez on 05-07-2025 Erythrocyte distribution width (RBC) [Ratio] 12.2 % 11.6-14.6 [facility] Erythrocyte distribution wid th standard deviationOrdered By: Willis Fernandez on 05-07-2025 Erythrocyte distribution width (RBC) [Ratio] 42.1 fl 35.1-43.9 [facility] Glomerular filtration rate ( GFR) estimation/1.73 sq m using serum, plasma, or whole bOrdered By: Willis Fernandez on 05-07-2025 GFR/1.73 sq M.predicted among non-blacks MDRD (S/P/Bld) [Vol rate/Area] 92 mL/min/{1.73_m2} >60 [facility] Comment on above: mL/min/1.73m2 CKD-EP I Creatinine Equation (2020) Hematocrit Auto (Bld) [Volum e fraction]Ordered By: Willis Fernandez on 05-07-2025 Hematocrit (Bld) [Volume fraction] 49.8 % 40-54 [facility] Hemoglobin measurementOrdere d By: Willis Fernandez on 05-07-2025 Hemoglobin (Bld) [Mass/Vol] 17.2 g/dL High 13.0-16.5 [facility] Immature granulocytes/100 WB C Auto (Bld)Ordered By: Willis Fernandez on 05-07-2025 Immature granulocytes/100 WBC (Bld) 0.200 % 0.0-0.9 [facility] Comment on above: IG% - Immature Granu locytes (promyelocytes, myelocytes and metamyelocytes) > 1% indicates that a LEFT SHIFT is Present. L501.4021on 05-07-2025 Trop T High Sen < 6 Normal <=22 [facility] Comment on above: Performed By: #### L 100.0100, L500.3400, L501.4021, L501.2450, L501.5200, L500.2500 ####[facility] [address] [place], [place], [address] Laboratory - Chemistry and C hemistry - challengeOrdered By: Willis Fernandez on 05-07-2025 AST [Catalytic activity/Vol] 25 U/L <38 [facility] Comment on above: Hemolysis present, R esults could be affected. Lipaseon 05-07-2025 Lipase [Catalytic activity/Vol] 31 U/L Normal 13-75 [facility] Comment on above: Result Comment: Magali solis note: LIPASE revised reference range effective 23. New Lipase methodology. Expected to produce lower values than the previous assay method. NEW Reference Range: 13 - 75 U/L Performed By: #### L 100.0100, L500.3400, L501.4021, L501.2450, L501.5200, L500.2500 ####[facility] [address] [place], [address] Lipase measurementOrdered By : Willis Fernandez on 05-07-2025 Lipase [Catalytic activity/Vol] 31 U/L 13-75 [facility] Comment on above: Please note:LIPASE r evised reference range effective 23. New Lipase methodology. Expected to produce lower values than the previous assay method. NEW Reference Range: 13 - 75 U/L Liver Profileon 05-07-2025 Albumin [Mass/Vol] 4.2 g/dL Normal 3.5-5.0 [facility] Comment on above: Performed By: #### L 100.0100, L500.3400, L501.4021, L501.2450, L501.5200, L500.2500 ####[facility] [address] [place], [place], [id number] ALK PHOS 63 U/L Normal 40-129 [facility] Comment on above: Performed By: #### L 100.0100, L500.3400, L501.4021, L501.2450, L501.5200, L500.2500 ####[facility] [address] [place], [address] ALT [Catalytic activity/Vol] 24 U/L Normal <=46 [facility] Comment on above: Performed By: #### L 100.0100, L500.3400, L501.4021, L501.2450, L501.5200, L500.2500 ####[facility] [address] [place], [address] AST [Catalytic activity/Vol] 25 U/L Normal <=37 [facility] Comment on above: Result Comment: Hemo lysis present, Results??could be affected. ?? Performed By: #### L 100.0100, L500.3400, L501.4021, L501.2450, L501.5200, L500.2500 ####[facility] [address] [place], [address] Bilirubin [Mass/Vol] 0.36 mg/dL Normal 0.00-1.30 [facility] Comment on above: Performed By: #### L 100.0100, L500.3400, L501.4021, L501.2450, L501.5200, L500.2500 ####[facility] [address] [place], [address] Bilirubin.direct [Mass/Vol] 0.11 mg/dL Normal 0.00-0.30 [facility] Comment on above: Result Comment: Hemo lysis present, Results??could be affected. ?? Performed By: #### L 100.0100, L500.3400, L501.4021, L501.2450, L501.5200, L500.2500 ####[facility] [address] [place], [address] Globulin (S) [Mass/Vol] 2.5 g/dL Normal 2.2-4.2 [facility] Comment on above: Performed By: #### L 100.0100, L500.3400, L501.4021, L501.2450, L501.5200, L500.2500 ####[facility] [address] [place], [address] T PROT 6.7 g/dL Normal 5.9-8.4 [facility] Comment on above: Performed By: #### L 100.0100, L500.3400, L501.4021, L501.2450, L501.5200, L500.2500 ####[facility] [address] [place], [address] MCV (mean corpuscular volume ) determinationOrdered By: Willis Fernandez on 05-07-2025 MCV (RBC) [Entitic vol] 93.6 fL 80-94 [facility] Magnesiumon 05-07-2025 Magnesium [Mass/Vol] 2.7 mg/dL High 1.5-2.2 [facility] Comment on above: Performed By: #### L 100.0100, L500.3400, L501.4021, L501.2450, L501.5200, L500.2500 ####[facility] [address] [place], [address] Magnesium measurement (mass/ volume)Ordered By: Willis Fernandez on 05-07-2025 Magnesium (Unsp spec) [Mass/Vol] 2.7 mg/dL High 1.5-2.2 [facility] Mean corpuscular hemoglobin (MCH) determinationOrdered By: Willis Fernandez on 05-07-2025 MCH (RBC) [Entitic mass] 32.3 pg High 27.0-32.0 [facility] Mean corpuscular hemoglobin concentration (MCHC) determinationOrdered By: Willis Fernandez on 05-07-2025 MCHC (RBC) [Mass/Vol] 34.5 g/dL 32-36 [facility] Mean platelet volume determi nationOrdered By: Willis Fernandez on 05-07-2025 Platelet mean volume (Bld) [Entitic vol] 9.9 fL 6.2-12.0 [facility] Monocyte percentageOrdered B y: Willis Fernandez on 05-07-2025 Monocytes/100 WBC (Bld) 10.2 % High 0-10 [facility] Neutrophil percentageOrdered By: Willis Fernandez on 05-07-2025 Neutrophils/100 WBC (Bld) 53.7 % 47-70 [facility] Nucleated red blood cell per centageOrdered By: Willis Fernandez on 05-07-2025 Nucleated RBC/100 WBC (Bld) [Ratio] 0 % 0-5 [facility] Platelet countOrdered By: Cheryle Fernandez on 05-07-2025 Platelets (Bld) [#/Vol] 263 10*3/uL 150-450 [facility] Potassium measurement (mass/ volume)Ordered By: Willis Fernandez on 05-07-2025 Potassium (Unsp spec) [Mass/Vol] 4.2 mmol/L 3.3-5.1 [facility] Comment on above: Hemolysis present, R esults could be affected. RBC Auto (Bld) [#/Vol]Ordere d By: Willis Fernandez on 05-07-2025 RBC (Bld) [#/Vol] 5.32 10*6/uL 4.6-6.2 [facility] Serum creatinine measurement (mass/volume)Ordered By: Willis Fernandez on 05-07-2025 Creatinine [Mass/Vol] 1.02 mg/dL 0.70-1.20 [facility] Serum globulin measurementOr dered By: Willis Fernandez on 05-07-2025 Globulin (S) [Mass/Vol] 2.5 g/dL 2.2-4.2 [facility] Serum glucose measurement (m ass/volume)Ordered By: Willis Fernandez on 05-07-2025 Glucose [Mass/Vol] 139 mg/dL High 70-99 [facility] Serum or plasma alanine fraga otransferase (ALT) measurementOrdered By: Willis Fernandez on 05-07-2025 ALT [Catalytic activity/Vol] 24 U/L <47 [facility] Serum or plasma albumin terry urement (mass/volume)Ordered By: Willis Fernandez on 05-07-2025 Albumin [Mass/Vol] 4.2 g/dL 3.5-5.0 [facility] Serum or plasma alkaline willard sphatase measurementOrdered By: Willis Fernandez on 05-07-2025 ALP [Catalytic activity/Vol] 63 U/L 40-129 [facility] Serum or plasma calcium terry urement (mass/volume)Ordered By: Willis Fernandez on 05-07-2025 Calcium [Mass/Vol] 8.6 mg/dL 7.6-11.0 [facility] Serum or plasma urea nitroge n measurement (mass/volume)Ordered By: Willis Fernandez on 05-07-2025 Urea nitrogen [Mass/Vol] 18 mg/dL 4-19 [facility] Sodium levelOrdered By: Stephen Fernandez on 05-07-2025 Sodium [Moles/Vol] 139 mmol/L 133-145 [facility] Total proteinOrdered By: Remi Fernandez on 05-07-2025 Protein [Mass/Vol] 6.7 g/dL 5.9-8.4 [facility] Troponin T HS 2 HRon 025 Trop T High Sen Normal <=22 [facility] Comment on above: Result Comment: Keagan hoffman via OM: Ordered Performed By: #### L 499.0042 ####[facility] [id number], [address] Troponin T.cardiac [Mass/vol ume] in Serum or Plasma by High sensitivity methodOrdered By: Willis Fernandez on 05-07-2025 Troponin T.cardiac High sensitivity method [Mass/Vol] < 6 ng/L <22 [facility] White blood cell (WBC) count Ordered By: Willis Fernandez on 05-07-2025 WBC (Bld) [#/Vol] 10.0 10*3/uL 4.4-11.0 [facility] Emergency Department Summary on 04-08-2025 Emergency Department Summary [facility] Medical Records Department [address] [place] [address] Emergency Department Summary 04/08/25 MR#: [id number] Acct: [id number] Name: IRWIN ROMERO Rep #: [id number] : 1980 44 From: Alan Parker DO PCP: Care Physician,No Primary Status:DEP ER Location: ED HPI History of Present Illness Chief Complaint: Dental Informant: patient Onset/Context/Jaelyn shekhar Onset: Today Context: Gradual Onset Timing: Continuous [...] denies any difficulty breathing or difficulty swallowing. [facility] Medical History (Updated 04/08/25 @ 06:[address] Alan Parker DO) Gtyor-Pzyucupms-Ela te (WPW) syndrome Home Medications ???Medication ???Instructions [...] (Updated 04/08/25 @ 06:[address] Alan Parker DO) Smoking Status: Current every day smoker [...] Primary Care Provider: U Referrals: U [Other] [facility] [Outside] - 5-7 Days Print Language: Ivorian Disposition (more content not included)... Normal [facility] .Auto Diffon 08-08-2024 Basophil, Absolute 0.1 10 3/mcL Normal 0.0-0.2 [facility] Comment on above: Performed By: #### T ROPHS, CBC, ADIFF, ANEU, MDW, BMP, MG, GFR #### [address] [address] Basophils/100 WBC (Bld) 0.6 % Normal 0.0-2.5 [facility] Comment on above: Performed By: #### T ROPHS, CBC, ADIFF, ANEU, MDW, BMP, MG, GFR #### [address] [address] Eosinophil, Absolute 0.1 10 3/mcL Normal 0.0-0.7 [facility] Comment on above: Performed By: #### T ROPHS, CBC, ADIFF, ANEU, MDW, BMP, MG, GFR #### [address] [address] Eosinophils/100 WBC (Bld) 1.1 % Normal 0.0-7.0 [facility] Comment on above: Performed By: #### T ROPHS, CBC, ADIFF, ANEU, MDW, BMP, MG, GFR #### [address] [address] Lymphocyte, Absolute 1.8 10 3/mcL Normal 0.9-4.3 [facility] Comment on above: Performed By: #### T ROPHS, CBC, ADIFF, ANEU, MDW, BMP, MG, GFR #### [address] [address] Lymphocytes/100 WBC (Bld) 17.4 % Low 20.0-40.0 [facility] Comment on above: Performed By: #### T ROPHS, CBC, ADIFF, ANEU, MDW, BMP, MG, GFR #### [address] [address] Monocyte, Absolute 0.6 10 3/mcL Normal 0.1-1.4 [facility] Comment on above: Performed By: #### T ROPHS, CBC, ADIFF, ANEU, MDW, BMP, MG, GFR #### [address] [address] Monocytes/100 WBC (Bld) 6.1 % Normal 2.0-13.0 [facility] Comment on above: Performed By: #### T LORA, CBC, ADIFF, ANEU, MDW, BMP, MG, GFR #### [address] [address] Neutrophils/100 WBC (Bld) 74.8 % Normal 50.0-75.0 [facility] Comment on above: Performed By: #### T LORA, CBC, ADASHISH, ANEU, MDW, BMP, MG, GFR #### [address] [address] .GFRon 08-08-2024 GFR 102 ml/min/1.73sqm Normal [facility] Comment on above: Result Comment: GFR Population [...] mL/min/1.73 square meters Performed By: #### C BC, ADASHISH, ANEU, MDW, TROPHS, BMP, MG, GFR #### [address] [address] GFR Non- 84 ml/min/1.73sqm Normal [facility] Comment on above: Result Comment: GFR Population [...] square meters Performed By: #### C ZOEY, PHAM EDGAR, W, TROPHS, BMP, MG, GFR #### [address] [address] .MDWon 08-08-2024 Monocyte Distribution Width 15.87 Normal 0.00-20.00 [facility] Comment on above: Result Comment: For ED adult patients suspected of sepsis, MDW<=20.0 does not rule out sepsis or risk of sepsis Performed By: #### C ZOEY, PHAM EDGAR, W, TROPHS, BMP, MG, GFR #### [address] [address] .NEUABSon 08-08-2024 Neutrophil, Absolute 7.7 10 3/mcL Normal 2.3-8.1 [facility] Comment on above: Performed By: #### C TALA GREER ANEU, MDW, TROPHS, BMP, MG, GFR #### [address] [address] BMPon 08-08-2024 BUN/Creatinine Ratio 18 ratio Normal 7-27 [facility] Comment on above: Performed By: #### C TALA GREER ANEU, MDW, TROPHS, BMP, MG, GFR #### [address] [address] Calcium [Mass/Vol] 8.5 mg/dL Normal 8.4-10.2 [facility] Comment on above: Performed By: #### C ZOEY, PHAM EDGAR, MDW, TROPHS, BMP, MG, GFR #### [address] [address] Chloride [Moles/Vol] 100 mmol/L Normal 98-107 [facility] Comment on above: Performed By: #### C BC, ADASHISH, ANEU, MDW, TROPHS, BMP, MG, GFR #### [address] [address] CO2 [Moles/Vol] 30 mmol/L High 22-29 [facility] Comment on above: Performed By: #### C BC, ADIFF, ANEU, MDW, TROPHS, BMP, MG, GFR #### [address] [address] Creatinine [Mass/Vol] 0.97 mg/dL Normal 0.70-1.30 [facility] Comment on above: Result Comment: Test ing performed on [employer] Dimension EXL analyzer using a modified kinetic Edyta technique. Performed By: #### C BC, ADIFF, ANEU, MDW, TROPHS, BMP, MG, GFR #### [place] [address] Electrolyte Balance 6.0 mEq/L Normal 4.0-15.0 [facility] Comment on above: Performed By: #### C BC, ADIFF, ANEU, MDW, TROPHS, BMP, MG, GFR #### [place] [id number] Glucose [Mass/Vol] 172 mg/dL High 70-105 [facility] Comment on above: Performed By: #### C BC, ADIFF, ANEU, MDW, TROPHS, BMP, MG, GFR #### [address] [address] Potassium [Moles/Vol] 4.1 mmol/L Normal 3.5-5.1 [facility] Comment on above: Performed By: #### C BC, ADIFF, ANEU, MDW, TROPHS, BMP, MG, GFR #### [address] [address] Sodium [Moles/Vol] 136 mmol/L Normal 136-145 [facility] Comment on above: Performed By: #### C BC, ADIFF, ANEU, MDW, TROPHS, BMP, MG, GFR #### [address] [address] Urea nitrogen [Mass/Vol] 17 mg/dL Normal 7-18 [facility] Comment on above: Performed By: #### C BC, TALA, ANEU, MDW, TROPHS, BMP, MG, GFR #### [address] [address] CBCon 08-08-2024 Erythrocyte distribution width (RBC) [Ratio] 13.2 % Normal 11.5-15.5 [facility] Comment on above: Performed By: #### T LORA, CBC, ADIFF, ANEU, MDW, BMP, MG, GFR #### [address] [address] Hematocrit (Bld) [Volume fraction] 50.1 % Normal 40.0-52.0 [facility] Comment on above: Performed By: #### T LORA, CBC, ADIFF, ANEU, MDW, BMP, MG, GFR #### [address] [address] Hgb 17.1 G/dL Normal 13.0-17.5 [facility] Comment on above: Performed By: #### T LORA, CBC, ADIFF, ANEU, MDW, BMP, MG, GFR #### [address] [address] MCH (RBC) [Entitic mass] 32.5 pg Normal 27.0-33.0 [facility] Comment on above: Performed By: #### T LORA, CBC, ADIFF, ANEU, MDW, BMP, MG, GFR #### [address] [address] MCHC 34.1 G/dL Normal 32.0-36.0 [facility] Comment on above: Performed By: #### T LORA, CBC, ADIFF, ANEU, MDW, BMP, MG, GFR #### [address] [address] MCV (RBC) [Entitic vol] 95.3 fL Normal 81.0-100.0 [facility] Comment on above: Performed By: #### T LORA, CBC, ADIFF, ANEU, MDW, BMP, MG, GFR #### [address] [address] Platelet 239 10 3/mcL Normal 150-450 [facility] Comment on above: Performed By: #### T DARCIHS, CBC, ADIFF, ANEU, MDW, BMP, MG, GFR #### [address] [address] Platelet mean volume (Bld) [Entitic vol] 7.8 fL Normal 6.4-10.5 [facility] Comment on above: Performed By: #### T LORA, CBC, ADIFF, ANEU, MDW, BMP, MG, GFR #### [address] [address] RBC 5.26 10 6/mcL Normal 4.50-6.00 [facility] Comment on above: Performed By: #### T LORA, CBC, ADIFF, ANEU, MDW, BMP, MG, GFR #### [address] [address] WBC 10.3 10 3/mcL Normal 4.5-10.8 [facility] Comment on above: Performed By: #### T LORA, CBC, ADIFF, ANEU, MDW, BMP, MG, GFR #### [address] [address] LABORATORYOrdered By: SYSTEM SYSTEM on 08-08-2024 Troponin I.cardiac DL <= 0.01 ng/mL [Mass/Vol] ng/L Normal 0 - 54 ng/L ADM Comment on above: Interpretive Data: High Sensitive Troponin I Reference Ranges: Female: 0-34 ng/L Male: 0-54 ng/L Testing performed on [employer] analyzer using direct chemiluminescent technology. Troponin I.cardiac DL <= 0.01 ng/mL [Mass/Vol] ng/L Normal 0 - 76 ng/L ADM SS Comment on above: Interpretive Data: H igh Sensitive Troponin I Reference Ranges: Female: 0-51 ng/L Male: 0-76 ng/L Testing performed on Dimension EXL using a homogeneous sandwich chemiluminescent immunoassay based on Bundle It technology. Basophils (Bld) [#/Vol] 0.1 103/mcL Normal [...] above: Interpretive Data: T esting performed on [employer] Dimension EXL analyzer using a modified kinetic [...] MCH (RBC) [Entitic mass] 32.5 pg Normal 27. 0 - 33.0 pg AO Workflow SS MCHC [...] ng/L Male: 0-76 ng/L Testing performed on [employer] using a homogeneous sandwich chemiluminescent immunoassay based on Bundle It technology. Urea nitrogen [Mass/Vol] 17 mg/dL Normal 7 - 18 mg/d L AO ADM SS Urea nitrogen/Creatinine [Mass ratio] 18 ratio Normal 7 - 27 ratio AO ADM SS WBC (Bld) [#/Vol] 10.3 103/mcL Normal 4.5 - 10.8 10^3/mcL AO Workflow SS MGon 08-08-2024 Magnesium [Mass/Vol] 2.6 mg/dL High 1.8-2.4 [facility] Comment on above: Performed By: #### C ZOEY, ATLA, PHAM, W, JEZ, BMP, MG, GFR #### [facility] [address] [place], [place] [address] TROPHSon 08-08-2024 High Sensitivity Troponin I <3 Normal 0-54 [facility] Comment on above: Result Comment: High Sensitive Troponin I Reference Ranges: Female: 0-34 ng/L Male: 0-54 ng/L Testing performed on [employer] IM analyzer using direct chemiluminescent technology. Performed By: #### T [facility] #### [facility] [address] [place] [address] High Sensitivity Troponin I <4 Normal 0-76 [facility] Comment on above: Result Comment: High Sensitive Troponin I Reference Ranges: Female: 0-51 ng/L Male: 0-76 ng/L Testing performed on Dimension EXL using a homogeneous sandwich chemiluminescent immunoassay based on Bundle It technology. Performed By: #### C TALA GREER ANEU, NEREYDA, TROPHS, BMP, MG, GFR #### [place] [address] [place], [place] [address] High Sensitivity Troponin I <4 Normal 0-[address] [place] [address] Comment on above: Result Comment: High Sensitive Troponin I Reference Ranges: Female: 0-51 ng/L Male: 0-76 ng/L Testing performed on Dimension EXL using a homogeneous sandwich chemiluminescent immunoassay based on LOCI technology. Performed By: #### C TALA GREER ANEU, MDW, TROPHS, BMP, MG, GFR #### [place] [address] [place], [place] [address] XR CHEST 1 VIEWon 08-08-2024 XR CHEST [...] 08/08/2024 4:41:17 AM Ordering Provider: ZOIE GUZMAN [facility] .Auto Diffon 07-25-2024 Basophil, Absolute 0.1 10 3/mcL Normal 0.0-0.2 [facility] Comment on above: Performed By: #### C BC, ADIFF, ANEU, MDW, TROPHS, BMP, MG, GFR #### [address] [address] Basophils/100 WBC (Bld) 0.8 % Normal 0.0-2.5 [facility] Comment on above: Performed By: #### C BC, ADIFF, ANEU, MDW, TROPHS, BMP, MG, GFR #### [address] [address] Eosinophil, Absolute 0.1 10 3/mcL Normal 0.0-0.7 [facility] Comment on above: Performed By: #### C BC, ADIFF, ANEU, MDW, TROPHS, BMP, MG, GFR #### [address] [address] Eosinophils/100 WBC (Bld) 1.2 % Normal 0.0-7.0 [facility] Comment on above: Performed By: #### C BC, ADIFF, ANEU, MDW, TROPHS, BMP, MG, GFR #### [address] [address] Lymphocyte, Absolute 1.6 10 3/mcL Normal 0.9-4.3 [facility] Comment on above: Performed By: #### C BC, ADIFF, ANEU, MDW, TROPHS, BMP, MG, GFR #### [address] [address] Lymphocytes/100 WBC (Bld) 20.0 % Normal 20.0-40.0 [facility] Comment on above: Performed By: #### C BC, ADIFF, ANEU, MDW, TROPHS, BMP, MG, GFR #### [address] [address] Monocyte, Absolute 0.7 10 3/mcL Normal 0.1-1.4 [facility] Comment on above: Performed By: #### C BC, ADIFF, ANEU, MDW, TROPHS, BMP, MG, GFR #### [address] [address] Monocytes/100 WBC (Bld) 8.7 % Normal 2.0-13.0 [facility] Comment on above: Performed By: #### C TALA GREER ANEU, MDW, TROPHS, BMP, MG, GFR #### [address] [address] Neutrophils/100 WBC (Bld) 69.3 % Normal 50.0-75.0 [facility] Comment on above: Performed By: #### C TALA GREER ANEU, MDW, TROPHS, BMP, MG, GFR #### [address] [address] .GFRon 07-25-2024 GFR 98 ml/min/1.73sqm Normal [facility] Comment on above: Result Comment: GFR Population [...] ANEU, MDW, TROPHS, BMP, MG, GFR #### [address] [address] GFR Non- 81 ml/min/1.73sqm Normal [facility] Comment on above: Result Comment: GFR Population [...] square meters Performed By: #### C ZOEY, PHAM EDGAR, W, TROPHS, BMP, MG, GFR #### [address] [address] .MDWon 07-25-2024 Monocyte Distribution Width 16.08 Normal 0.00-20.00 [facility] Comment on above: Result Comment: For ED adult patients suspected of sepsis, MDW<=20.0 does not rule out sepsis or risk of sepsis Performed By: #### C ZOEY, PHAM EDGAR, NEREYDA, TROPHS, BMP, MG, GFR #### [address] [address] .NEUABSon 07-25-2024 Neutrophil, Absolute 5.7 10 3/mcL Normal 2.3-8.1 [facility] Comment on above: Performed By: #### C TALA GREER ANEU, MDW, TROPHS, BMP, MG, GFR #### [address] [address] BMPon 07-25-2024 BUN/Creatinine Ratio 15 ratio Normal 7-27 [facility] Comment on above: Performed By: #### C TALA GREER ANEU, MDW, TROPHS, BMP, MG, GFR #### [address] [address] Calcium [Mass/Vol] 8.9 mg/dL Normal 8.4-10.2 [facility] Comment on above: Performed By: #### C ZOEY, PHAM EDGAR, W, TROPHS, BMP, MG, GFR #### [address] [address] Chloride [Moles/Vol] 103 mmol/L Normal 98-107 [facility] Comment on above: Performed By: #### C BC, ADASHISH, PHAM, MDW, TROPHS, BMP, MG, GFR #### [address] [address] CO2 [Moles/Vol] 32 mmol/L High 22-29 [facility] Comment on above: Performed By: #### C BC, ADASHISH, ANEU, MDW, TROPHS, BMP, MG, GFR #### [address] [address] Creatinine [Mass/Vol] 1.00 mg/dL Normal 0.70-1.30 [facility] Comment on above: Result Comment: Test ing performed on [employer] Dimension EXL analyzer using a modified kinetic Edyta technique. Performed By: #### C BC, ADASHISH, ANEU, MDW, TROPHS, BMP, MG, GFR #### [place] [address] Electrolyte Balance 6.0 mEq/L Normal 4.0-15.0 [facility] Comment on above: Performed By: #### C BC, ADASHISH, PHAM, MDW, TROPHS, BMP, MG, GFR #### [place] [address] Glucose [Mass/Vol] 110 mg/dL High 70-105 [facility] Comment on above: Performed By: #### C BC, ADASHISH, PHAM, MDW, TROPHS, BMP, MG, GFR #### [address] [address] Potassium [Moles/Vol] 4.8 mmol/L Normal 3.5-5.1 [facility] Comment on above: Performed By: #### C BC, ADASHISH, PHAM, MDW, TROPHS, BMP, MG, GFR #### [place] [address] Sodium [Moles/Vol] 141 mmol/L Normal 136-145 [facility] Comment on above: Performed By: #### C BC, ADIFF, ANEU, MDW, TROPHS, BMP, MG, GFR #### [place] [address] Urea nitrogen [Mass/Vol] 15 mg/dL Normal 7-18 [facility] Comment on above: Performed By: #### C BC, TALA, PHAM, MDW, TROPHS, BMP, MG, GFR #### [place] [address] CBCon 07-25-2024 Erythrocyte distribution width (RBC) [Ratio] 12.9 % Normal 11.5-15.5 [facility] Comment on above: Performed By: #### C ZOEY, TALA, PHAM, MDW, TROPHS, BMP, MG, GFR #### [place] [address] Hematocrit (Bld) [Volume fraction] 47.2 % Normal 40.0-52.0 [facility] Comment on above: Performed By: #### C ZOEY, TALA, PHAM, MDW, TROPHS, BMP, MG, GFR #### [place] [address] Hgb 16.3 G/dL Normal 13.0-17.5 [facility] Comment on above: Performed By: #### C ZOEY, TALA, PHAM, MDW, TROPHS, BMP, MG, GFR #### [place] [address] MCH (RBC) [Entitic mass] 32.9 pg Normal 27.0-33.0 [facility] Comment on above: Performed By: #### C BC, TALA, PHAM, MDW, TROPHS, BMP, MG, GFR #### [place] [address] MCHC 34.6 G/dL Normal 32.0-36.0 [facility] Comment on above: Performed By: #### C BC, ADASHISH, ANEU, MDW, TROPHS, BMP, MG, GFR #### [place] [address] MCV (RBC) [Entitic vol] 95.1 fL Normal 81.0-100.0 [facility] Comment on above: Performed By: #### C BC, ADIFF, ANEU, MDW, TROPHS, BMP, MG, GFR #### [address] [address] Platelet 228 10 3/mcL Normal 150-450 [facility] Comment on above: Performed By: #### C BC, ADIFF, ANEU, MDW, TROPHS, BMP, MG, GFR #### [address] [address] Platelet mean volume (Bld) [Entitic vol] 8.1 fL Normal 6.4-10.5 [facility] Comment on above: Performed By: #### C BC, ADIFF, ANEU, MDW, TROPHS, BMP, MG, GFR #### [address] [address] RBC 4.96 10 6/mcL Normal 4.50-6.00 [facility] Comment on above: Performed By: #### C BC, ADIFF, ANEU, MDW, TROPHS, BMP, MG, GFR #### [address] [address] WBC 8.2 10 3/mcL Normal 4.5-10.8 [facility] Comment on above: Performed By: #### C BC, ADIFF, ANEU, MDW, TROPHS, BMP, MG, GFR #### [address] [address] DIMERon 07-25-2024 D-Dimer <200 Normal 0-230 [facility] Comment on above: Result Comment: DDN: Results [...] MDW, TROPHS, BMP, MG, GFR #### [place] [address] [place] [address] LABORATORYOrdered By: SYSTEM SYSTEM on 07-25-2024 Fibrin [...] ng/L Male: 0-76 ng/L Testing performed on [employer] using a homogeneous sandwich chemiluminescent immunoassay based on Bundle It technology. Basophils (Bld) [#/Vol] 0.1 103/mcL Normal [...] MCH (RBC) [Entitic mass] 32.9 pg Normal 27. 0 - 33.0 pg AO Workflow SS MCHC [...] ng/L Male: 0-76 ng/L Testing performed on [employer] using a homogeneous sandwich chemiluminescent immunoassay based on Bundle It technology. Urea nitrogen [Mass/Vol] 15 mg/dL Normal 7 - 18 mg/d L AO ADM SS Urea nitrogen/Creatinine [Mass ratio] 15 ratio Normal 7 - 27 ratio AO ADM SS WBC (Bld) [#/Vol] 8.2 103/mcL Normal 4.5 - 10.8 10^3/mcL AO Workflow SS MGon 07-25-2024 Magnesium [Mass/Vol] 2.7 mg/dL High 1.8-2.4 [facility] Comment on above: Performed By: #### C TALA GREER ANEU, MDW, TROPHS, BMP, MG, GFR #### [address] [address] [facility] 07-25-2024 High Sensitivity Troponin I <4 Normal 0-[address] [place] [address] Comment on above: Result Comment: High Sensitive Troponin I Reference Ranges: Female: 0-51 ng/L Male: 0-76 ng/L Testing performed on [employer] using a homogeneous sandwich chemiluminescent immunoassay based on Bundle It technology. Performed By: #### C TALA GREER ANEU, MDW, TROPHS, BMP, MG, GFR #### [address] [address] High Sensitivity Troponin I <4 Normal 0-[address] [place] [address] Comment on above: Result Comment: High Sensitive Troponin I Reference Ranges: Female: 0-51 ng/L Male: 0-76 ng/L Testing performed on [employer] using a homogeneous sandwich chemiluminescent immunoassay based on Bundle It technology. Performed By: #### C TALA GREER ANEU, MDW, JEZ, BMP, MG, GFR #### [place] [address] [place], [place] [address] XR CHEST 1 VIEWon 07-25-2024 XR CHEST [...] 07/25/2024 8:50:44 AM Ordering Provider: [facility] Office Visit ([facility]) ---- IRWIN ROMERO ([id number]) 1980 M Date Time Provider Department 07/02/24 10:45 AM CANDIDO EUBANKS [facility] During your visit today, we recorded the following information about you: Temperature Pulse Respiration Blood pressure 98.1 degrees 66/minute 16/minute 102/60 Weight 75 kg Candido Eubanks PA 07/02/2024 11:00 AM Signed This note was created using AlleyWatch[employer]. Subjective Irwin C Heather is a 44 year old male. HPI 44-year-old male presents for cough, chest congestion x 3 days. Patient states he started getting a cough a few days ago. He was seen in [place] ER last night and had an EKG [...] or diarrhea. He has not taken anything [id number] for symptoms. No other complaint. No past [...] Chest Congestion [236] Cmt: cough, seen in [place] [facility] last night, given work excuse for [...] Status:Closed by CANDIDO EUBANKS on 07/02/24 Normal [facility] .Auto Diffon 07-01-2024 Basophil, Absolute 0.1 10 3/mcL Normal 0.0-0.2 [facility] Comment on above: Performed By: #### C TALA GREER ANEU, MDW, TROPHS, BMP, MG, GFR #### [place] [address] [place], [place] [address] Basophils/100 WBC (Bld) 1.0 % Normal 0.0-2.5 [facility] Comment on above: Performed By: #### C TALA GREER ANEU, MDW, TROPHS, BMP, MG, GFR #### [place] [address] [place], [place] [address] Eosinophil, Absolute 0.4 10 3/mcL Normal 0.0-0.4 [facility] Comment on above: Performed By: #### C BC, ADIFF, ANEU, MDW, TROPHS, BMP, MG, GFR #### [address] [address] Eosinophils/100 WBC (Bld) 4.5 % Normal 0.0-7.0 [facility] Comment on above: Performed By: #### C BC, ADIFF, ANEU, MDW, TROPHS, BMP, MG, GFR #### [address] [address] Lymphocyte, Absolute 2.2 10 3/mcL Normal 0.8-3.9 [facility] Comment on above: Performed By: #### C BC, ADIFF, ANEU, MDW, TROPHS, BMP, MG, GFR #### [address] [address] Lymphocytes/100 WBC (Bld) 25.1 % Normal 10.0-50.0 [facility] Comment on above: Performed By: #### C BC, ADIFF, ANEU, MDW, TROPHS, BMP, MG, GFR #### [address] [address] Monocyte, Absolute 0.9 10 3/mcL Normal 0.2-1.0 [facility] Comment on above: Performed By: #### C BC, ADIFF, ANEU, MDW, TROPHS, BMP, MG, GFR #### [address] [address] Monocytes/100 WBC (Bld) 10.8 % Normal 1.7-13.0 [facility] Comment on above: Performed By: #### C BC, ADIFF, ANEU, MDW, TROPHS, BMP, MG, GFR #### [address] [address] Neutrophils/100 WBC (Bld) 58.6 % Normal 37.0-80.0 [facility] Comment on above: Performed By: #### C BC, ADIFF, ANEU, MDW, TROPHS, BMP, MG, GFR #### [address] [address] .GFRon 07-01-2024 GFR 100 ml/min/1.73sqm Normal [facility] Comment on above: Result Comment: GFR Population [...] ANEU, MDW, TROPHS, BMP, MG, GFR #### [address] [address] GFR Non- 82 ml/min/1.73sqm Normal [facility] Comment on above: Result Comment: GFR Population [...] ANEU, MDW, TROPHS, BMP, MG, GFR #### [address] [place], [place] [address] .MDWon 07-01-2024 Monocyte Distribution Width 17.55 Normal 0.00-20.00 [facility] Comment on above: Result Comment: For ED adult patients suspected of sepsis, MDW<=20.0 does not rule out sepsis or risk of sepsis Performed By: #### C ZOEY, PHAM EDGAR MDW, TROPHS, BMP, MG, GFR #### [address] [address] .NEUABSon 07-01-2024 Neutrophil, Absolute 5.1 10 3/mcL Normal 2.9-6.2 [facility] Comment on above: Performed By: #### C ZOEY, PHAM EDGAR, NEREYDA, TROPHS, BMP, MG, GFR #### [address] [address] BMPon 07-01-2024 BUN/Creatinine Ratio 15 ratio Normal 7-27 [facility] Comment on above: Performed By: #### C ZOEY, TALA, PHAM, NEREYDA, TROPHS, BMP, MG, GFR #### [address] [address] Calcium [Mass/Vol] 8.3 mg/dL Low 8.4-10.2 [facility] Comment on above: Performed By: #### C ZOEY, PHAM EDGAR MDW, TROPHS, BMP, MG, GFR #### [address] [address] Chloride [Moles/Vol] 105 mmol/L Normal 98-107 [facility] Comment on above: Performed By: #### C TALA GREER ANEU, MDW, TROPHS, BMP, MG, GFR #### [address] [address] CO2 [Moles/Vol] 28 mmol/L Normal 22-29 [facility] Comment on above: Performed By: #### C TALA GREER ANEU, MDW, TROPHS, BMP, MG, GFR #### [address] [address] Creatinine [Mass/Vol] 0.99 mg/dL Normal 0.70-1.30 [facility] Comment on above: Result Comment: Test ing performed on Siemens Dimension EXL analyzer using a modified kinetic Edyta technique. Performed By: #### C BC, ADIFF, ANEU, MDW, TROPHS, BMP, MG, GFR #### [address] [address] Electrolyte Balance 10.0 mEq/L Normal 4.0-15.0 [facility] Comment on above: Performed By: #### C BC, ADIFF, ANEU, MDW, TROPHS, BMP, MG, GFR #### [address] [address] Glucose [Mass/Vol] 109 mg/dL High 70-105 [facility] Comment on above: Performed By: #### C BC, ADIFF, ANEU, MDW, TROPHS, BMP, MG, GFR #### [address] [address] Potassium [Moles/Vol] 4.3 mmol/L Normal 3.5-5.1 [facility] Comment on above: Performed By: #### C BC, ADIFF, ANEU, MDW, TROPHS, BMP, MG, GFR #### [address] [address] Sodium [Moles/Vol] 143 mmol/L Normal 136-145 [facility] Comment on above: Performed By: #### C BC, ADIFF, ANEU, MDW, TROPHS, BMP, MG, GFR #### [address] [address] Urea nitrogen [Mass/Vol] 15 mg/dL Normal 7-18 [facility] Comment on above: Performed By: #### C BC, ADIFF, ANEU, MDW, TROPHS, BMP, MG, GFR #### [address] [address] CBCon 07-01-2024 Erythrocyte distribution width (RBC) [Ratio] 13.0 % Normal 11.5-14.5 [facility] Comment on above: Performed By: #### C BC, ADIFF, ANEU, MDW, TROPHS, BMP, MG, GFR #### [address] [address] Hematocrit (Bld) [Volume fraction] 49.6 % Normal 42.0-52.0 [facility] Comment on above: Performed By: #### C BC, TALA, PHAM, MDW, TROPHS, BMP, MG, GFR #### [address] [address] Hgb 16.9 G/dL Normal 14.0-18.0 [facility] Comment on above: Performed By: #### C BC, TALA, PHAM, MDW, TROPHS, BMP, MG, GFR #### [address] [address] MCH (RBC) [Entitic mass] 32.6 pg High 27.0-31.2 [facility] Comment on above: Performed By: #### C ZOEY, TALA, PHAM, MDW, TROPHS, BMP, MG, GFR #### [address] [address] MCHC 34.1 G/dL Normal 31.8-35.4 [facility] Comment on above: Performed By: #### C ZOEY, TALA, PHAM, MDW, TROPHS, BMP, MG, GFR #### [address] [address] MCV (RBC) [Entitic vol] 95.7 fL High 80.0-94.0 [facility] Comment on above: Performed By: #### C ZOEY, TALA, PHAM, MDW, TROPHS, BMP, MG, GFR #### [address] [address] Platelet 217 10 3/mcL Normal 130-400 [facility] Comment on above: Performed By: #### C BC, TALA, PHAM, MDW, TROPHS, BMP, MG, GFR #### [address] [address] Platelet mean volume (Bld) [Entitic vol] 8.1 fL Normal 7.4-10.4 [facility] Comment on above: Performed By: #### C BC, TALA, PHAM, MDW, TROPHS, BMP, MG, GFR #### [place] [id number] RBC 5.18 10 6/mcL Normal 4.04-6.13 [facility] Comment on above: Performed By: #### C BC, TALA, ANEU, MDW, TROPHS, BMP, MG, GFR #### [place] [address] [place] [id number] WBC 8.7 10 3/mcL Normal 4.6-10.8 [facility] Comment on above: Performed By: #### C BC, TALA, PHAM, MDW, TROPHS, BMP, MG, GFR #### [place] [address] LABORATORYOrdered By: SYSTEM SYSTEM on 07-01-2024 Basophils [...] MCH (RBC) [Entitic mass] 32.6 pg High 27. 0 - 31.2 pg AO Workflow SS MCHC [...] ng/L Male: 0-76 ng/L Testing performed on DevZuz using a homogeneous sandwich chemiluminescent immunoassay based on Bundle It technology. Urea nitrogen [Mass/Vol] 15 mg/dL Normal 7 - 18 mg/d L AO ADM SS Urea nitrogen/Creatinine [Mass ratio] 15 ratio Normal 7 - 27 ratio AO ADM SS WBC (Bld) [#/Vol] 8.7 103/mcL Normal 4.6 - 10.8 10^3/mcL AO Workflow SS [facility] 07-01-2024 High Sensitivity Troponin I <4 Normal 0-76 [facility] Comment on above: Result Comment: High Sensitive Troponin I Reference Ranges: Female: 0-51 ng/L Male: 0-76 ng/L Testing performed on DevZuz using a homogeneous sandwich chemiluminescent immunoassay based on Bundle It technology. Performed By: #### C ZOEY, TALA, PHAM, MDW, TROPHS, BMP, MG, GFR #### [facility] [address] [place], [place] [address] XR CHEST 2 VIEWSon 4 XR CHEST 2 VIEWS ORIGINAL EXAMINATION: TWO [...] 07/01/2024 5:24:43 AM Ordering Provider: PAVAN ECHEVARRIA [facility] Vital Signs Date Time Vital Sign Value Performing Clinician Facility 05-19-2025 08:46-0400 Body temperature 98 [degF] Dr. Alan Parker DO Work Phone: [facility] 05-19-2025 08:46-0400 Diastolic blood pressure 81 mm[Hg] Dr. Alan Parker DO Work Phone: [facility] 05-19-2025 08:46-0400 Heart rate 64 /min Dr. Alan Parker DO Work Phone: [facility] 05-19-2025 08:46-0400 Respiratory rate 18 /min Dr. Alan Parker DO Work Phone: 9(186)076-023317 [place] [address] 05-19-2025 08:46-0400 SaO2% (BldA) [Mass fraction] 99 % Dr. Alan Parker DO Work Phone: 7(705)170-277017 [place] [address] 05-19-2025 08:46-0400 Systolic blood pressure 111 mm[Hg] Dr. Alan Parker DO Work Phone: 6(903)081-863117 [place] [address] 05-19-2025 06:56-0400 Body height 175.[address] Alan Parker DO Work Phone: 3(546)969-447617 [place] [address] 05-19-2025 06:56-0400 Body mass index (BMI) [Ratio] 24.5 kg/m2 Dr. Alan Parker DO Work Phone: 8(057)954-569197 [place] [address] 05-19-2025 06:56-0400 Body weight 75.[address] Alan Parker DO Work Phone: 9(067)603-669297 [place] [address] 05-07-2025 07:05-0400 Body temperature 98.1 [degF] Dr. Alan Parker DO Work Phone: 4(175)487-559717 [place] [address] 05-07-2025 07:05-0400 Diastolic blood pressure 85 mm[Hg] Dr. Alan Parker DO Work Phone: 2(797)362-370117 [place] [address] 05-07-2025 07:05-0400 Heart rate 55 /min Dr. Alan Parker DO Work Phone: 5(842)933-756117 [place] [address] 05-07-2025 07:05-0400 Respiratory rate 16 /min Dr. Alan Parker DO Work Phone: 1(876)069-441217 [place] [address] 05-07-2025 07:05-0400 SaO2% (BldA) [Mass fraction] 98 % Dr. Alan Parker DO Work Phone: 6(630)316-707117 [place] [address] 05-07-2025 07:05-0400 Systolic blood pressure 114 mm[Hg] Dr. Alan Parker DO Work Phone: 8(240)324-677217 [place] [address] 05-07-2025 05:44-0400 Body height 175.[address] Alan Parker DO Work Phone: 2(396)916-844017 [place] [address] 05-07-2025 05:44-0400 Body mass index (BMI) [Ratio] 24.7 kg/m2 Dr. Alan Parker DO Work Phone: 6(008)913-116217 [place] [address] 05-07-2025 05:44-0400 Body weight 75.[address] Alan Parker DO Work Phone: 0(555)006-832997 [place] [address] 04-08-2025 06:56-0400 Body temperature 98.7 [degF] Dr. Alan Parker DO Work Phone: 1(145)460-420897 [place] [address] 04-08-2025 06:56-0400 Diastolic blood pressure 69 mm[Hg] Dr. Alan Parker DO Work Phone: 6(196)368-679097 [place] [address] 04-08-2025 06:56-0400 Heart rate 62 /min Dr. Alan Parker DO Work Phone: 9(583)768-098197 [place] [address] 04-08-2025 06:56-0400 Respiratory rate 16 /min Dr. Alan Parker DO Work Phone: 6(228)009-356097 [place] [address] 04-08-2025 06:56-0400 SaO2% (BldA) [Mass fraction] 99 % Dr. Alan Parker DO Work Phone: 2(413)027-649397 [place] [address] 04-08-2025 06:56-0400 Systolic blood pressure 117 mm[Hg] Dr. Alan Parker DO Work Phone: 8(330)649-754997 [place] [address] 04-08-2025 06:19-0400 Body height 175.[address] Alan Parker DO Work Phone: 2(008)793-529117 [place] [address] 08-08-2024 10:38-0400 Blood Pressure Cuff Size DR RUFUS HUNTER MD [facility] 08-08-2024 10:38-[address] RUFUS HUNTER MD [facility] 08-08-2024 10:38-[address] RUFUS HUNTER MD [facility] 08-08-2024 10:38-0400 Body temperature 97.7 [degF] DR RUFUS HUNTER MD [address] [place] [address] 08-08-2024 10:38-0400 Diastolic Blood Pressure Non-Invasive 55 mm[Hg] DR RUFUS HUNTER MD [address] [place] [address] 08-08-2024 10:38-0400 Heart rate 52 /min DR RUUFS HUNTER MD [address] [place] [address] 08-08-2024 10:38-0400 Reason For Taking VItal Signs DR RUFUS HUNTER MD [address] [place] [address] 08-08-2024 10:38-0400 Respiratory rate 16 /min DR RUFUS HUNTER MD [address] [place] [address] 08-08-2024 10:38-0400 Systolic Blood Pressure Non-Invasive 108 mm[Hg] DR RUFUS HUNTER MD [address] [place] [address] 08-08-2024 09:17-0400 Heart rate 58 /min DR RUFUS HUNTER MD [address] [place] [address] 08-08-2024 09:02-[address] Cuff Size DR RUFUS HUNTER MD [address] [place] [address] 08-08-2024 09:02-[address] RUFUS HUNTER MD [address] [place] [address] 08-08-2024 09:02-[address] RUFUS HUNTER MD [address] [place] [address] 08-08-2024 09:02-0400 Body temperature 98.78 [degF] DR RUFUS HUNTER MD [address] [place] [address] 08-08-2024 09:02-0400 Diastolic Blood Pressure Non-Invasive 64 mm[Hg] DR RUFUS HUNTER MD [address] [place] [address] 08-08-2024 09:02-0400 Heart rate 52 /min DR RUFUS HUNTER MD [address] [place] [address] 08-08-2024 09:02-0400 Heart rate 53 /min DR RUFUS HUNTER MD [facility] 08-08-2024 09:02-0400 Reason For Taking VItal Signs DR RUFUS HUNTER MD [facility] 08-08-2024 09:02-0400 Respiratory rate 14 /min DR RUFUS HUNTER MD [address] 08-08-2024 09:02-0400 Systolic Blood Pressure Non-Invasive 109 mm[Hg] DR RUFUS HUNTER MD [address] [place] [address] 08-08-2024 08:52-0400 Body height 175.[address] RUFUS HUNTER MD [address] [place] [address] 08-08-2024 08:52-0400 Body weight 70.[address] RUFUS HUNTER MD [address] [place] [address] 08-08-2024 08:52-0400 Body weight 22.81 kg/m2 DR RUFUS HUNTER MD [facility] 08-08-2024 07:47-0400 Heart rate 60 /min ZOIE FROMABDIT DO [facility] 08-08-2024 07:47-0400 Respiratory rate 16 /min ZOIE FROMMELT DO [facility] 08-08-2024 07:36-0400 Diastolic Blood Pressure Non-Invasive 70 mm[Hg] ZOIE FROMMELT DO [facility] 08-08-2024 07:36-0400 Heart rate 52 /min ZOIE FROMMELT DO [facility] 08-08-2024 07:36-0400 Respiratory rate 16 /min ZOIE FROMMELT DO [facility] 08-08-2024 07:36-0400 Systolic Blood Pressure Non-Invasive 106 mm[Hg] ZOIE FROMMELT DO [facility] 08-08-2024 06:49-0400 Diastolic Blood Pressure Non-Invasive 74 mm[Hg] ZOIE FROMMELT DO [facility] 08-08-2024 06:49-0400 Heart rate 53 /min ZOIE FROMMELT DO [facility] 08-08-2024 06:49-0400 Mean blood pressure 84 mm[Hg] ZOIE FROMMELT DO [facility] 08-08-2024 06:49-0400 Respiratory rate 16 /min ZOIE FROMMELT DO [facility] 08-08-2024 06:49-0400 Systolic Blood Pressure Non-Invasive 103 mm[Hg] ZOIE FROMMELT DO [facility] 08-08-2024 06:07-0400 Diastolic Blood Pressure Non-Invasive 74 mm[Hg] OZIE FROMMELT DO [facility] 08-08-2024 06:07-0400 Mean blood pressure 84 mm[Hg] ZOIE FROMMELT DO [facility] 08-08-2024 06:07-0400 Systolic Blood Pressure Non-Invasive 107 mm[Hg] ZOIE FROMMELT DO [facility] 08-08-2024 05:26-0400 Mean blood pressure 87 mm[Hg] ZOIE FROMMELT DO [facility] 08-08-2024 04:01-0400 Body height 175.3 cm ZOIE FROMMELT DO [facility] 08-08-2024 04:01-0400 Body temperature 97.16 [degF] ZOIE FROMMELT DO [facility] 08-08-2024 04:01-0400 Body weight 75 kg ZOIE FROMMELT DO [facility] 08-08-2024 04:01-0400 Heart rate 71 /min ZOIE FROMMELT DO [facility] 07-25-2024 12:00-0400 Diastolic Blood Pressure Non-Invasive 90 mm[Hg] ZOIE FROMMELT DO [facility] 07-25-2024 12:00-0400 Heart rate 61 /min ZOIE FROMMELT DO [facility] 07-25-2024 11:52-0400 Diastolic Blood Pressure Non-Invasive 73 mm[Hg] ZOIE FROMMELT DO [facility] 07-25-2024 11:52-0400 Heart rate 62 /min ZOIE FROMMELT DO [facility] 07-25-2024 11:52-0400 Respiratory rate 18 /min ZOIE FROMMELT DO [facility] 07-25-2024 11:52-0400 Systolic Blood Pressure Non-Invasive 128 mm[Hg] ZOIE FROMMELT DO [facility] 07-25-2024 10:15-0400 Diastolic Blood Pressure Non-Invasive 72 mm[Hg] ZOIE FROMMELT DO [facility] 07-25-2024 10:15-0400 Heart rate 60 /min ZOIE FROMMELT DO [facility] 07-25-2024 10:15-0400 Respiratory rate 19 /min ZOIE FROMMELT DO [facility] 07-25-2024 10:15-0400 Systolic Blood Pressure Non-Invasive 119 mm[Hg] ZOIE FROMMELT DO [facility] 07-25-2024 07:27-0400 Blood Pressure Cuff Size ZOIE PEPET DO [facility] 07-25-2024 07:27-0400 Blood Pressure Location ZOIE PEPET DO [facility] 07-25-2024 07:27-0400 Blood Pressure Method ZOIE GUZMAN D O [facility] 07-25-2024 07:27-0400 Body height 175.3 cm ZOIE GUZMAN DO [facility] 07-25-2024 07:27-0400 Body temperature 97.34 [degF] ZOIE GUZMAN DO [facility] 07-25-2024 07:27-0400 Body weight 74.2 kg ZOIE GUZMAN DO [facility] 07-25-2024 07:27-0400 Heart rate 74 /min ZOIE GUZMAN DO [facility] 07-02-2024 10:53-0400 Body temperature 98.1 [degF] Krislyn Aberegg PA Work Phone: [facility] 07-02-2024 10:53-0400 Body weight 75 kg Krislyn Aberegg PA Work Phone: [facility] 07-02-2024 10:53-0400 Diastolic blood pressure 60 mm[Hg] Krislyn Aberegg PA Work Phone: [facility] 07-02-2024 10:53-0400 Heart rate 66 /min Krislyn Aberegg PA Work Phone: [facility] 07-02-2024 10:53-0400 Respiratory rate 16 /min Krislyn Aberegg PA Work Phone: [facility] 07-02-2024 10:53-0400 SaO2% (BldA) [Mass fraction] 97 % Candido Eubanks PA Work Phone: [facility] 07-02-2024 10:53-0400 Systolic blood pressure 102 mm[Hg] Candido Eubanks PA Work Phone: [facility] 07-01-2024 05:55-0400 Diastolic Blood Pressure Non-Invasive 68 mm[Hg] PAVAN DURESKA DO [facility] 07-01-2024 05:55-0400 Heart rate 62 /min PAVAN DURESKA DO [facility] 07-01-2024 05:55-0400 Respiratory rate 18 /min PAVAN DURESKA DO [facility] 07-01-2024 05:55-0400 Systolic Blood Pressure Non-Invasive 115 mm[Hg] PAVAN DURESKA DO [facility] 07-01-2024 04:48-0400 Diastolic Blood Pressure Non-Invasive 64 mm[Hg] PAVAN DURESKA DO [facility] 07-01-2024 04:48-0400 Mean blood pressure 80 mm[Hg] PAVAN DURESKA DO [facility] 07-01-2024 04:48-0400 Systolic Blood Pressure Non-Invasive 115 mm[Hg] PAVAN DURESKA DO [facility] 07-01-2024 04:39-0400 Body height 175.3 cm PAVAN DURESKA DO [facility] 07-01-2024 04:39-0400 Body temperature 97.88 [degF] PAVAN DURESKA DO [facility] 07-01-2024 04:39-0400 Body weight 75 kg PAVAN ECHEVARRIA DO [facility] 07-01-2024 04:39-0400 Diastolic Blood Pressure Non-Invasive 38 mm[Hg] PAVAN ALCANTARAKA DO [facility] 07-01-2024 04:39-0400 Heart rate 81 /min PAVAN ALCANTARAKA DO [facility] 07-01-2024 04:39-0400 Respiratory rate 18 /min PAVAN ECHEVARRIA DO [facility] 07-01-2024 04:39-0400 Systolic Blood Pressure Non-Invasive 128 mm[Hg] PAVAN ECHEVARRIA DO [facility] Encounters Encounter Date Encounter Type Care Provider Facility Start: 05-19-2025 End: 05-19-2025 Emergency department patient visit Dr. Alan Parker DO Work Phone: -Emergency Department Work Phone: Start: 05-07-2025 End: 05-07-2025 Emergency department patient visit Dr. Alan Parker DO Work Phone: -Emergency Department Work Phone: Start: 04-08-2025 End: 04-08-2025 Emergency department patient visit Dr. Alan Parker DO Work Phone: -Emergency Department Work Phone: Start: 10-30-2024 ambulatory NONE PHYSICIAN Facility :A Start: 10-29-[address] SIMA Anne acility:A Start: 08-08-2024 End: 08-08-2024 Evaluation and management of inpatient DR RUFUS HUNTER MD [facility] Start: 08-08-2024 End: 08-08-2024 Emergency department patient visit ZOIE GUZMAN DO [facility] Start: 07-25-2024 End: 07-25-2024 Emergency department patient visit ZOIE GUZMAN DO [facility] Start: 07-02-2024 End: 07-02-2024 ambulatory SELF Facility:[facility] Start: 07-02-2024 End: 07-02-2024 Patient encounter procedure Candido SCOTT Work Phone: [facility] Comment on above: URI, acute (Primary Dx) Start: 07-01-2024 End: 07-01-2024 Emergency department patient visit NONE PHYSICIAN Facility:[facility] Date Procedure Procedure Detail Performing Clinician Start: 05-19-2025 Plain chest X-ray Dr. Ismael Parker DO Work Phone: Start: 05-19-2025 D-dimer assay, quantitative Dr. Alan Parker DO Work Phone: Comment on above: NORMAL D-Dimer level (<0.50) indicates no DVT or PE. Start: 05-19-[address] Alan Parker DO Work Phone: Start: 05-07-2025 X-ray of chest, PA a nd lateral views Dr. Alan Parker DO Work Phone: Start: 05-07-[address] Aaln Parker DO Work Phone: Plan of Treatment Date Care Activity Detail Author Start: 05-19-2025 [facility] Start: 05-07-2025 End: 05-07-2025 [facility] Start: 05-07-2025 X-ray of chest, PA a nd lateral views Chest PA and Lateral [facility] Start: 05-07-2025 XR Chest PA and Lateral [facility] Start: 04-08-2025 [facility] Start: 06-15-2024 Covid-19 Vaccine ( season) Covid-19 Vaccine (2022-24 season) [facility] Start: 06-15-2024 Influenza vaccination Influenza Vacc ine (#1) [facility] Start: 2015 Lipid panel Lipid Screening [facility] Start: 1999 Hepatitis B Vaccine (1 of 3 - 19+ 3-dose series) Hepatitis B Vaccine (1 of 3 - 19+ 3-dose series) [facility] Start: 1999 Urine microalbumin profile DTaP,Tdap,Td Vaccine (1 - Tdap) [facility] Start: 1998 Anxiety Screening Anxiety Screening [facility] Start: 1998 Depression Screening Depression Scre ening [facility] Start: 1998 Hepatitis C screening Hepatitis C Sc reening [facility] Start: 1998 HIV screening HIV Screening [facility] Patient Education [facility] Work Phone: Patient referral [facility] Work Phone: Payers Date Payer Category Payer Self-pay 1980 Unknown [id number] [id number] [id number] 1980 Unknown [id number] 2.16.8 [id number] 1980 Unknown [id number] 2.16.8 [id number] 1980 Unknown [id number] 2.16.8 [id number] 1980 Unknown [id number] 2.16.8 [id number] 1980 Unknown [id number] 2.16.8 [id number] Unknown [id number] 2.16.8 [id number] Unknown [id number] 2.16.8 [id number] Unknown [id number] 2.16.8 [id number] Social History Date Type Detail Facility Tobacco smoking status NHIS Tobacco smoking consumption unknown [facility] Start: 1980 Sex assigned at Not on file [facility] Gender identity Not on file [facility] inic Tobacco smoking status No Smoking Status Entered [facility] Start: 1980 Sex Assigned At Male A [facility] Start: 08-08-2024 Tobacco smoking status Heavy tobacco smoker (finding) [facility] Start: 04-08-2025 End: 05-19-2025 Tobacco smoking status NHIS Smokes tobacco daily (finding) [facility] Functional Status Date Assessment Result Facility 08-08-2024 Functional Status Room check performed [facility] 08-08-2024 Functional Status [facility] 08-08-2024 Functional Status Independent [facility] 07-25-2024 Functional Status Independent [facility] 07-25-2024 Functional Status Room check performed [facility] 07-25-2024 Functional Status [facility] 07-25-2024 Functional Status [facility] 07-01-2024 Functional Status Independent [facility] 07-01-2024 Functional Status Independent [facility] Mental Status Date Assessment Result Facility 05-19-2025 Cognitive function Level Of Cons ciousness Awake;Alert;Appropriate;Follow s Commands [facility] Work Phone: 05-07-2025 Cognitive function Level Of Cons ciousness Awake;Alert;Appropriate;Follow s Commands [facility] Work Phone: 08-08-2024 Mental Status Oriented x 4 [facility] 08-08-2024 Mental Status Orientation Oriented x 4 [facility] 07-25-2024 Mental Status Orientation Oriented x 4 [facility] 07-25-2024 Mental Status [facility] 07-01-2024 Mental Status Orientation Oriented x 4 [facility] 07-01-2024 Mental Status [facility] Clinical Notes 07-01-2024 to 05-19-2025 Note Date & Type Note Facility 05-19-2025 Radiology Diagnostic study note [facility] Imaging Services [address] [place] [id number] Chest 1 View (Portable) MR#: [id number] Acct: [id number] Name: IRWIN ROMERO Rep #: [id number] : 1980 M 45 From: Doni Escalante MD PCP: Care Physician,No Primary Status: PRE ER Study:Chest 1 View (Portable) Date of Exam: 05/19/25 Exam# [id number] Ordering Dr: Ita Hernandez DO PROCEDURE: CHEST 1 VIEW (PORTABLE) 05/19/2025 REASON FOR EXAM: CHEST PAIN TECHNIQUE: Frontal view of the chest. COMPARISON: Two-view chest, 05/07/2025 FINDINGS: The lungs are clear. The heart borders mediastinum and pulmonary vascular pattern are normal. The upper abdominal bowel gas pattern is normal. There are no bony abnormalities. RAD/Chest 1 View (Portable) IMPRESSION: No evidence of acute cardiopulmonary pathology. Reading Location: [id number] CC: Dr. Arnaud Hernandez DO; No Primary Care Physician ~ Money Order Clerk: Signed [facility] Work Phone: 05-07-2025 Discharge summary [facility] 08-08-2024 Discharge summary Date of Service 08/08/24 Discharge Diagnosis CP Hospital Course 44-year-old male with past medical history of half pack per day smoker since age of 20, recent history of chest pain and palpitations presented to [facility] with complaints of chest pain and [...] EKG done in office was concerning for Zdmvj-Vczyxqzyg-Quarm. Patient was then transferred to [facility] for further management. Patient states he [...] to Physician - Ordered -- 08/08/24 9:25:00 EDT, ELLIE PORTER MD, Routine, WPW management Objective Vitals and [...] SIMA GOMEZ MD When:In 1 week Where:[address] [place] [address]- [phone] Follow Up with PHYSICIAN, NONE When:Within 1-2 days Follow Up with ELLIE PORTER MD When:In 1 week Where:[address] [facility] [address] [place] [address] [phone] Follow Up Appointments No qualifying data available. Follow Up Labs/Studies Discharge Labs No Follow-up Labs Discharge Studies No Follow-up Studies Discharge Diet No qualifying data available. Discharge Activity No qualifying data available. Condition on Discharge Unstable Readmission Risk/Palliative Score No qualifying data available. Discharge Disposition AMA - Home Digitally Signed by EMILY YOUNG MD on 08/08/2024 12:43 PM [facility] 08-08-2024 Cardiology Progress note Patient states he does [...] EMILY YOUNG MD on 08/08/2024 11:38 AM [facility] 08-08-2024 History and physical note Date of Service 08/08/24 Chief Complaint Chest pain palpitations History of Present Illness 44-year-old male with past medical history of half pack per day smoker since age of 20, recent history of chest pain and palpitations presented to [facility] with complaints of chest pain and [...] EKG done in office was concerning for Itrbr-Qwhcyfyfr-Wixyt. Patient was then transferred to [facility] for further management. PMH: As documented in chart PSH: None FH: Hypertension, hyperlipidemia, diabetes, and heart problems SH: Half pack per day smoker since [...] Lab Data Assessment/Plan #Atypical angina #Palpitations #Tachycardia #Wezzq-Jpicsnkjk-Kwltg #Tobacco abuse - Senior Grant Writer: Dr. Gomez, new - Latest EKG reviewed [...] patient including risk of infection, bleeding, (0.1%), SD (<0.1%), stroke (0.1%), vascular complications (1-2%), allergic rxns, contrast nephropathy; patient agreeable and willing to proceed - Ordered cardiac catheterization, NPO for procedure Patient seen and discussed with Dr. Sudarshan Young II, MD PGY- Cardiovascular Disease Fellow Pager: [phone] Problem List/Past Medical History Ongoing Bronchitis Chest pain, atypical WPW (Ztcjg-Jwodbzngd-Uskzk syndrome) Procedure/Surgical History No qualifying data available. [...] EMILY YOUNG MD on 08/08/2024 10:03 AM [facility] 08-08-2024 Evaluation + Plan note Extrac duarte from: Title:History and Physical Author:PAMELA YOUNG MD Date:08/08/24 #Atypical angina #Palpitations #Tachycardia #Kjpxh-Gwaqlnarz-Bnhbw #Tobacco abuse - Senior Grant Writer: Dr. Gomez, new - Latest EKG reviewed [...] patient including risk of infection, bleeding, (0.1%), SD (<0.1%), stroke (0.1%), vascular complications (1-2%), allergic rxns, contrast nephropathy; patient agreeable and willing to proceed - Ordered cardiac catheterization, NPO for procedure Patient seen and discussed with Dr. Sudarshan Young II, MD PGY- Cardiovascular Disease Fellow Pager: [phone] Addendum by ANKIT ZIMMERMAN MD on August 08, 2024 16:56:00 EDT I have personally seen, examined and evaluated the patient on the encounter date. I have reviewed the fellow's documentation and agree with the fellow's findings and plan as documented, unless otherwise stated. 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 Appointment Date:11/04/2024 12:30:00 PM Scheduled Provider: Location:CT Appointment Type:yyCT Coronary Extracardiac Appointment Date:11/04/2024 02:30:00 PM Scheduled Provider: Location:CT Appointment Type:*CT Coronary Angiography w+w/o Contrast Diagnostic Tests Pending * Urinalysis w/ C&S if Indicated 08/08/24 Future Scheduled Tests Radiology* CT Coronary Angiography w+w/o Contrast 11/04/24 * CT Coronary Extracardiac 11/04/24 [facility] 10-25-2024 Discharge summary Date of Service 08/08/24 Discharge Diagnosis CP Hospital Course 44-year-old male with past medical history of half pack per day smoker since age of 20, recent history of chest pain and palpitations presented to [facility] with complaints of chest pain and [...] EKG done in office was concerning for Wmnqe-Ocwwwudut-Pucjo. [facility]. Patient states he does [...] to Physician - Ordered -- 08/08/24 9:25:00 EDT, ELLIE PORTER MD, Routine, WPW management Objective Vitals and [...] GOMEZ MD When:In 1 week Where:[address] [facility] [address] [facility] [place] [address] [phone] Follow Up with PHYSICIAN, NONE When:Within 1-2 days Follow Up with ELLIE PORTER MD When:In 1 week Where:[address] [facility] [place] [address] [phone] Follow Up Appointments No qualifying data available. Follow Up Labs/Studies Discharge Labs No Follow-up Labs Discharge Studies No Follow-up Studies Discharge Diet No qualifying data available. Discharge Activity No qualifying data available. Condition on Discharge Unstable Readmission Risk/Palliative Score No qualifying data available. Discharge Disposition AMA - Home Digitally Signed by EMILY YOUNG MD on 08/08/2024 12:43 PM [id number] Cardiology Progress note Patient states he does [...] EMILY YOUNG MD on 08/08/2024 11:38 AM [id number] Note Smoking Cessation Consult Entered On: 08/08/2024 11:04 EDT Performed On: 08/08/2024 11:04 EDT by LUCAS Dougherty Cessation Attempt to Quit Smoking in Past : No Methods Used To Quit Smoking : None Readiness to Quit Smoking : Contemplating quitting Practical Counseling : Provide basic information LUCAS Dougherty - 08/08/2024 11:04 EDT Discharge Planning-Smoking Cessation Time Spent wi Patient-SC : Between 3-10 minutes LUCAS Dougherty - 08/08/2024 11:04 EDT [id number] History and physical note Date of Service 08/08/24 Chief Complaint Chest pain palpitations History of Present Illness 44-year-old male with past medical history of half pack per day smoker since age of 20, recent history of chest pain and palpitations presented to [facility] with complaints of chest pain and [...] EKG done in office was concerning for Mjrpf-Blsawvjla-Oabkj. [facility] PMH: As documented in chart PSH: None FH: Hypertension, hyperlipidemia, diabetes, and heart problems SH: Half pack per day smoker since [...] Lab Data Assessment/Plan #Atypical angina #Palpitations #Tachycardia #Dbjas-Rwrtqxhqb-Dmjuc #Tobacco abuse - Senior Grant Writer: Dr. Gomez, new - Latest EKG reviewed [...] patient including risk of infection, bleeding, (0.1%), SD (<0.1%), stroke (0.1%), vascular complications (1-2%), allergic rxns, contrast nephropathy; patient agreeable and willing to proceed - Ordered cardiac catheterization, NPO for procedure Patient seen and discussed with Dr. Sudarshan Young II, MD PGY- Cardiovascular Disease Fellow Pager: [phone] Problem List/Past Medical History Ongoing Bronchitis Chest pain, atypical WPW (Hcdqg-Fcdslaixp-Qarks syndrome) Procedure/Surgical History No qualifying data available. [...] EMILY YOUNG MD on 08/08/2024 10:03 AM [id number] Hospital Discharge instructions Follow Up Care 08/08/2024 05:21:01 With:SIMA GOMEZ MD Address: [address] [address] [phone] When:Within 1 Week(s) With:PHYSICIAN, NONE Address:Unknown When:1-2 days With:ELLIE PORTER MD Address: [address] [facility] [address] [address] [phone] When:Within 1 Week(s) [facility] 10-25-2024 Note ORIGINAL EXAMINATION: ONE XRAY [...] Date: 08/08/2024 4:41:17 AM [facility]ing [facility] NoteSinus rhythm Vent pre-excitat'n(WPW), left acces'y pathway Compared to ECG at 07/25/2024 07:51:30 BORDERLINE ECG Electronic Signature: ZOIE GUZMAN DO 08/08/2024 04:27:14[facility] 10-11-2024 Note Discharge Instructions Thank you for allowing [facility] to assist you with your healthcare needs. The following is importantdischarge information regarding your hospital visit. Diagnosis from Today's Visit WPW - Ajjxq-Qyonwseuo-Efcaj pattern What to Do Next Instructions from Your Care Team Discharge Event Monitor Instructions - Ordered -- 07/25/24 12:20:55 EDT, You have been ordered mobile outpatient telemetry. You should receive a device in the mail with further instructions. If you have not received a device within 7 days after discharge, please call [facility] at [phone]. Discharge Return to Work, School, or Sports (Return to Work, School, or Sports) - Ordered -- 07/26/24, May return to: work, 07/25/24 9:24:00 EDT Post Acute Orders No qualifying data available. You Need to Schedule the Following Appointments Follow Up with MIKALA WARNER DO When:Within 2-4 days Where:[address] [facility] [place] [address]- [phone] Allergies No Known Medication Allergies Medications Please [...] help. Tell your doctor about any prescription, eubv-vqg-tjhwrwd, or herbal medicines you take. These may be affecting your heart rhythm. Follow-up care Follow up with your healthcare provider, or as advised. If a Holter monitor has been recommended, contact the broom man you have been referred to as soon as you can orange picker the device. Other outpatient tests may also [...] You may only feel weak or just not right. If it is not clear or if [...] getting help while trying to find them. [phone] [employer]. [address] [place] [address], [place] [address]. All rights reserved. This information is not intended as a substitute for professional medical care. Always follow yourhealthcare professional's instructions. Additional Information VACCINATE! IT SAVES LIVES! Members of the community who have not yet received the COVID-19 vaccine and would like to receive it can visit one of [facility] vaccine clinics. There are many vaccine clinic locations within the [facility]. For locations and available times, please visit www.gettheshot.coronavirus.[place].gov/. It is important to note that some COVID mobile vaccine clinics are held outdoors and may be canceled in rainy or stormy conditions. To learn more about pediatric vaccinations (ages 5-11), we invite you to visit the [facility] webpage. https://www.akCardio controls.org/pages/2822-Mwbye-Vyygalzmeeo-Qoiutvpgwk-Fwwam-Rqf stions.htmlTo learn more about the COVID-19 vaccine, we invite you to visit the CDC website for a list of frequently asked questions. https://www.cdc.gov/coronavirus/2019-ncov/vaccines/faq.html [facility] Patient Portal Access Instructions: Stay connected with your healthcare team and access your personal medical information anytime with the [facility] Patient Portal. If you would like a full copy of your medical records please contact the [facility] Medical Records Department Sunday through Sunday between 8a.m. and 4:30p.m. Please follow the directions below to access the portal: 1.Access the email account you provided upon registration to the hospital.2.Look for an invitation email from [facility].3.Open the email and access the invitation link: Accept Invitation to [facility]4.Fill in the required rice to create your account. Sign into www.[employer] with your username and password that you [...] you will allow to register on the [facility] Patient Portal for access to your information. You can also access the [facility] Patient Portal on the LogRhythm. Simply click on Health Records under mcTEL and then click on the Diary.com logo. HOW TO SAFELY DISPOSE OF PRESCRIPTION [...] Call your local pharmacy or go to http://Plainlegal.GetOne Rewards/3V0Du0j to find one close to you.3.Make use of household items: Use cat litter or old coffee grounds to dispose medications if other options arenot available. Mix your drugs with these household products, seal them in an airtight container andthrow it into the garbage. Call [facility]: [phone] to be sure your drugs can be [...] been reviewed and explained to me and I,JONY ROMEROIAN understand my current condition and have read and understand these discharge instructions. I have received a written copy of the plan/instructions. If I have questions, I am aware that I should contact my doctor. Patient/Roller Staker Signature: Date/Time: Relationship to Patient: Witness Name/Signature: Date/Time: [facility]10-11-2024 Hospital Discharge instructions Patient Education 07/25/2024 09:24:36 [...] help. Tell your doctor about any prescription, jikp-miq-khnrxjd, or herbal medicines you take. These may be affecting your heart rhythm. Follow-up care Follow up with your healthcare provider, or as advised. If a Holter monitor has been recommended, contact the broom man you have been referred to as soon as you can orange picker the device. Other outpatient tests may also [...] You may only feel weak or just not right. If it is not clear or if [...] getting help while trying to find them. [phone] [employer]. [address] [place] [address]. All rights reserved. This information is not intended as a substitute for professional medical care. Always follow yourhealthcare professional's instructions. Follow Up Care 07/25/2024 07:18:09 With:MIKALA WARNER DO Address: [address] [place] [address] [address] [facility] [place] [address] [phone] When:2-4 days [facility] 10-11-2024 Note ORIGINAL EXAMINATION: ONE XRAY VIEW [...] Date: 07/25/2024 8:50:44 AM Ordering Provider[facility] NoteSinus rhythm Vent pre-excitat'n(WPW), left acces'y pathway Compared to ECG at 07/01/2024 05:01:41 BORDERLINE ECG Electronic Signature: ZOIE GUZMAN DO 07/25/2024 07:59:35[facility] 09-18-2024 NoteHNO ID: [id number] Author: CANDIDO EUBANKS PA Service: ? Author Type: Physician Enrollment Specialist Type: Progress Notes Filed: 07/02/2024 11:00 Note Text: This note was created using [employer]. Subjective Irwin Romero is a 44 year old male. HPI 44-year-old male presents for cough, chest congestion x 3 days. Patient states he started getting a cough a few days ago. He was seen in [facility] ER last night and had an EKG [...] or diarrhea. He has not taken anything dwwu-iwf-gikdboc for symptoms. No other complaint. No past [...] detail warranting prompt ER evaluation. Candido Eubanks [facility]09-18-2024 History of Present illness Narrative* Candido Eubanks [place] - 07/02/2024 10:58 AM EDT This note was created using AlleyWatchriter. Subjective Irwin Romero is a 44 year old male. HPI 44-year-old male presents for cough, chest congestion x 3 days. Patient states he started getting a cough a few days ago. He was seen in [facility] ER last night and had an EKG [...] or diarrhea. He has not taken anything rysa-bld-jokzbgc for symptoms. No other complaint. No past [...] ER evaluation. [facility] Discharge instructions Patient Education 07/01/2024 05:49:11 [...] exposed to secondhand smoke. You may use wfww-rkt-bdoeknx medicine to control fever or pain, unless [...] loosen secretions in the nose and lungs. Bgor-len-xgsvgtj cough, cold, and sore-throat medicines will not [...] Trouble breathing, wheezing, or pain with breathing [phone] [employer]. [address] [place] [address]. All rights reserved. This information is not intended as a substitute for professional medical care. Always follow yourhealthcare professional's instructions. Follow Up Care 07/01/2024 04:36:29 With:JOSE M SAMUEL DO Address: [address] [place] [id number] [phone] When:2-4 days [facility] 09-17-2024 Note Discharge Instructions Thank you for allowing [facility] to assist you with your healthcare needs. [...] M SAMUEL DO When:Within 2-4 days Where:[address] [place] [address]- [phone] Allergies No Known Medication Allergies Medications Please [...] exposed to secondhand smoke. You may use yine-gbg-zhouiex medicine to control fever or pain, unless [...] loosen secretions in the nose and lungs. Yxgr-tok-tlpznnc cough, cold, and sore-throat medicines will not [...] Trouble breathing, wheezing, or pain with breathing [phone] [employer]. [address] [place] [address]. All rights reserved. This information is not intended as a substitute for professional medical care. Always follow yourhealthcare professional's instructions. Additional Information VACCINATE! IT SAVES LIVES! Members of the community who have not yet received the COVID-19 vaccine and would like to receive it can visit one of [facility] vaccine clinics. There are many vaccine clinic locations within the [facility]. For locations and available times, please visit www.gettheshot.coronavirus.[place].gov/. It is important to note that some COVID mobile vaccine clinics are held outdoors and may be canceled in rainy or stormy conditions. To learn more about pediatric vaccinations (ages 5-11), we invite you to visit the [facility] webpage. https://www.[facility].org/pages/3266-Gczyg-Jmpdrvmqxmg-Qcvsswypyq-Svhyd-Zld stions.htmlTo learn more about the COVID-19 vaccine, we invite you to visit the CDC website for a list of frequently asked questions. https://www.cdc.gov/coronavirus/2019-ncov/vaccines/faq.html [facility] Patient Portal Access Instructions: Stay connected with your healthcare team and access your personal medical information anytime with the [facility] Patient Portal. If you would like a full copy of your medical records please contact the [facility] Medical Records Department Sunday through Sunday between 8a.m. and 4:30p.m. Please follow the directions below to access the portal: 1.Access the email account you provided upon registration to the [facility].2.Look for an invitation email from [facility].3.Open the email and access the invitation link: Accept Invitation to [facility].Fill in the required rice to create your account. Sign into www.[employer] with your username and password that you [...] you will allow to register on the [facility] Patient Portal for access to your information. You can also access the [facility] Patient Portal on the LogRhythm. Simply click on Health Records under mcTEL and then click on the Diary.com logo. HOW TO SAFELY DISPOSE OF PRESCRIPTION [...] Call your local pharmacy or go to http://Plainlegal.GetOne Rewards/5P9Ui4c to find one close to you.3.Make use of household items: Use cat litter or old coffee grounds to dispose medications if other options arenot available. Mix your drugs with these household products, seal them in an airtight container andthrow it into the garbage. Call [facility]: [phone] to be sure your drugs can be [...] aware that I should contact my doctor. Patient/Roller Staker Signature: Date/Time: Relationship to Patient: Witness Name/Signature: Date/Time: [facility]09-17-2024 Note ORIGINAL EXAMINATION: TWO XRAY VIEWS OF [...] Date: 07/01/2024 5:24:43 AM Ordering Provider[facility] Note Sinus rhythm Vent pre-excitat'n(WPW), left acces'y pathway Electronic Signature: PAVAN ECHEVARRIA DO 07/01/2024 05:13:45[facility] Discharge summary Author Willis Fernandez [facility] Note Date/Time May 07, 2025 7:02 am [facility] Medical Records Department [address] [place] [address] Emergency Department Summary 05/07/25 MR#: [id number] Acct: [id number] Name: IRWIN ROMERO Rep # :[id number] : 1980 45 From: Willis Fernandez DO PCP: Care Physician,No Primary Status :REG ER Location: ED HPI History of Present Illness Chief Complaint: Chest Pain Informant: patient Narrative Narrative: Patient is a 45-year-old male who reports a past medical history of Tntqd-Iqezpxzun-Coaoq disease but states he does not take any daily medications. He states that he gets up early for work and lay down around 8 PM last night. He states as he was laying down he noticed he had a vague midsternal chest discomfort. He states there was no associated nausea vomiting diaphoresis or shortness of breath. He denied any radiation of the pain. He states it was minimal in nature and he was able to go to sleep. He states he awoke this morning and still noticed a vague sensation of discomfort. He was able to get ready for work and was driving into work when he felt like his symptoms worsened. He states despite the worsening sensation of pressure he did not experience any type of palpitations nausea vomiting diaphoresis or shortness of breath. He states because of the persistent nature and increased severity of symptoms he had concerned this could be cardiac and therefore comes in for evaluation. [facility] Medical History Jnnrc-Ccdwqqlmz-Kgegd (WPW) syndrome Home Medications ?Medication ?Instructions ?Recorded ?Last Taken ?Type NK 05/07/25 Unknown History Allergy/AdvReac Type Severity Reaction Status Date / Time No Known Allergies Allergy Verified 05/07/25 05:42 Surgical History no surgical history Social History (Updated 04/08/25 @ 06:[address] Alan Parker, DO) Smoking Status: Current every day smoker tobacco type: cigarettes alcohol intake: current alcohol intake frequency: holidays/special occasions only ROS ROS ED Constitutional Constitutional ED: Denies chills or fever(s) ENT ENT ED: Denies rhinorrhea or sore throat Cardiovascular Cardiovascular: Reports chest pain; Denies palpitations or racing heartbeat Respiratory/Chest Respiratory/Chest: Reports cough; Denies dyspnea Gastrointestinal Gastrointestinal: Denies abdominal pain, diarrhea, nausea or vomiting Musculoskeletal Musculoskeletal: Denies back pain Integumentary Denies rash Neurologic Neurologic: Denies headache(s) Hematologic/Lymphatic Hematologic/Lymphatic: Denies easy bleeding or easy bruising EXAM Physical Exam Const Vital Signs: 05/07/25 05:44 05/07/25 05:49 05/07/25 06:00 Temperature 97.7 F L Temperature Source Oral Pulse Rate 66 72 67 Respiratory Rate 20 H 24 H 20 H Blood Pressure 129/67 H 115/73 Blood Pressure Mean 87 86 Pulse Ox 99 100 Oxygen Delivery Method Room Air 05/07/25 06:15 05/07/25 06:17 05/07/25 06:30 Temperature Temperature Source Pulse Rate 62 59 L Respiratory Rate 14 21 H Blood Pressure 112/73 117/78 Blood Pressure Mean 85 91 Pulse Ox 100 98 Oxygen Delivery Method Positive well nourished and well developed General Appearance ED: well developed; Negative for pallor HEENT HEENT Narrative: Normocephalic atraumatic No tongue or lip swelling no oral lesions no airway edema or compromise; no signs of infection noted in the posterior pharynx Eyes PERRL and EOMs intact bilaterally General Eye ED: Negative for scleral icterus Neck supple and no JVD Chest Wall Chest Narrative: There is mild pain with palpation in the anterior chest wall near the lower portion of the sternum without bony deformity or subcutaneous emphysema Resp normal respiratory effort and clear to auscultation bilaterally Resp Narrative: No nasal flaring retractions tachypnea or accessory muscle use Cardio regular rate and regular rhythm Rate: other Other Details: Regular rate and rhythm without murmurs rubs or gallop Radial and carotid pulses are equal and symmetric GI non-distended and no masses GI Narrative: Abdomen is soft and nondistended with normal active bowel sounds. There is mildpain with palpation in the midepigastric region without voluntary guarding or rigidity. No pulsatile mass or fluid wave Auscultation: normoactive bowel sounds Palpation: soft Extremity normal to inspection Extremity Narrative: No asymmetric edema no pitting edema negative Homans' sign bilaterally Neuro oriented x3, CN's II-XII intact bilaterally and no sensory deficits noted Sensorium / Orientation: alert Motor Exam: strength 5/5 throughout Psych mental status grossly normal Skin no rashes or lesions noted and no wounds Skin Narrative: No overlying soft tissue changes to suggest trauma or infection General Skin Exam: Negative for jaundice or pallor MDM MDM MDM Narrative Medical decision making narrative: Patient arrived to the ER with stable vitals and reported spontaneous improvement of his chest discomfort. With report of lower midsternal chest discomfort there is concern patient has acute coronary syndrome versus cardiac dysrhythmia versus gastritis versus pancreatitis versus pneumonia or pneumothorax. Secondary to his basic blood work was obtained. Troponin is lessthan 6 going against ACS especially as patient states he has had pain for multiple hours. EKG does show Jrshl-Iupgkhavb-Euytn syndrome but he is not tachycardic and there is no true cardiac dysrhythmia such as A-fib a flutter or SVT and therefore there is no need for emergent cardioversion or rate control. Blood work showed no clinically significant electrolyte abnormality. Lipase is normal going against acute pancreatitis. Patient's chest x-ray revealed a smallbleb but no signs of pneumothorax or pneumonia or congestive heart. On reevaluation he is resting comfortably and he states he has had spontaneous improvement of his symptoms. Therefore I do not feel there is need for further evaluation in the ER. We did discuss obtaining a delta troponin but patient states that as his initial is as low as the test measures and he is not having discomfort at this time he does not want to wait for the repeat value. 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 History & Record Review Discussion w/independent historian: Patient Lab Data Attestation: I reviewed the patient's lab results. Labs: Laboratory Results - last 24 hr 05/07/25 05:45 WBC 10.0 RBC 5.32 Hgb 17.2 H Hct 49.8 MCV 93.6 MCH 32.3 H MCHC 34.5 RDW Std Deviation 42.1 RDW Coeff of Tiara 12.2 Plt Count 263 MPV 9.9 Immature Gran % (Auto) 0.200 Neut % (Auto) 53.7 Lymph % (Auto) 29.7 King % (Auto) 10.2 H Eos % (Auto) 5.4 H Baso % (Auto) 0.8 Absolute Neuts (auto) 5.4 Absolute Lymphs (auto) 2.97 Nucleated RBC % 0 Sodium 139 Potassium 4.2 Chloride 104 Carbon Dioxide 25.5 Anion Gap 10 BUN 18 Creatinine 1.02 Estim Creat Clear Calc 91.46 Est GFR (MDRD) Non-Af 92 BUN/Creatinine Ratio 17.6 Glucose 139 H Calcium 8.6 Magnesium 2.7 H Total Bilirubin 0.36 Direct Bilirubin 0.11 AST 25 ALT 24 Alkaline Phosphatase 63 Troponin T High Sens < 6 Total Protein 6.7 Albumin 4.2 Globulin 2.5 Lipase 31 Radiography Diagnostic Testin view chest x-ray is interpreted by the emergency medicine physician reveals a small bleb along the right middle/upper lobe without acute infiltrate pneumothorax or pleural effusion or widening of the mediastinum Discharge Plan Triage Chief Complaint: Chest Pain ED Provider: Willis Fernandez Dx/Rx/DC Orders Clinical Impression: Rhqiu-Ugbywlgac-Mwtos (WPW) syndrome, Nonspecific chest pain, Tobacco use Instructions: Your Heart's Electrical System, ED Chest Pain, Uncertain Cause Prescriptions: No Action NK Stand Alone Forms: Work / School Excuse Primary Care Provider: Care Physician,No Primary Referrals: Emily Jaimes MD [Med Staff - Active Staff] - Care Physician,No Primary [Primary Care Provider] - Activity Restrictions/Additional Instructions: Your workup today did not show any sign of acute/active heart disease/damage. 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 There were no signs of an abnormal rhythm while in the ER. You need to follow-up with cardiology and also have potential referral to an dope house operator helper to discuss potential need for daily medication or radiofrequency ablation to ensure there is no unwanted side effects from your WPW. If your symptoms worsen or you have any further concernsplease return to the ER for repeat evaluation Print Language: Ivorian Disposition Disposition: Home, Self Care What to do if you have Problems For any increased pain, shortness of breath, bleeding, nausea or vomiting, chestpain, or any unexpected problems, contact your Primary Care Provider. Call [facility] ([phone]) or report to the closest Emergency Room. Call 911 if necessary. 05/07/25 0702 <Electronically signed by Willis Fernandez DO> Cosigner Signature (if applicable): CC: No Primary Care Physician ~ Signed [facility] Work Phone: Evaluation + Plan note Future Appointments Appointment Date:08/01/2024 11:30:00 AM Scheduled Provider: Location:[facility] Appointment Type:CV STAFF SUBMAR[employer] OFFICER [facility] Evaluation + Plan note 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 Appointment Date:11/04/2024 12:30:00 PM Scheduled Provider: Location:CT Appointment Type:yyCT Coronary Extracardiac Appointment Date:11/04/2024 02:30:00 PM Scheduled Provider: Location:CT Appointment Type:*CT Coronary Angiography w+w/o Contrast Future Scheduled Tests Radiology* CT Coronary Angiography w+w/o Contrast 11/04/24 * CT Coronary Extracardiac 11/04/24 [facility] Evaluation note* Diagnosis URI, acute- Primary Acute upper respiratory infections of unspecified site documented in this encounter [facility]No assessment information availableWWooster [facility] Work Phone: Hospital course Narrative No data available for this section [facility] Discharge instructions No data available for this section [facility] Discharge instructionsAdditional Instructions Your workup today did not show any sign of acute/active heart disease/damage. You do have Dqazd-Uslvxxwcq-Dykgb which is a congenital cardiac disorder that can lead to abnormal rhythms. There were no signs of an abnormal rhythm while in the ER. You need to follow-up with cardiology and also have potential referral to an dope house operator helper to discuss potential need for daily medication or radiofrequency ablation to ensure there is no unwanted side effects from your WPW. If your symptoms worsen or you have any further concerns please return to the ER for repeat evaluationWWooster [facility] Work Phone: Reason for referral (narrative)No reason for referral information availableWWooster Community Hospital Work Phone: Summary Purpose Family History [...] Do you have a Healthcare Power of Associate Data Scientist? No April 08, 2025 6:19am Advance Directive Response Recorded Date/ Time Do you have a Healthcare Power of Associate Data Scientist? No April 08, 2025 6:19am Do you have a Healthcare Power of Associate Data Scientist? No May 07, 2025 5:43am Advance Directive Response Recorded Date/ Time Do you have a Healthcare Power of Associate Data Scientist? No April 08, 2025 6:19am Do you have a Healthcare Power of Associate Data Scientist? No May 07, 2025 5:43am Do you have a Healthcare Power of Associate Data Scientist? No May 19, 2025 7:01am Chief Complaint and Reason for Visit Chief Complaint Admit Date DENTAL April 08, 2025 6:18 am Chief Complaint Admit Date DENTAL April 08, 2025 6:18 am chest pain May 07, 2025 5:42 am Chief Complaint Admit Date DENTAL April 08, 2025 6:18 am chest pain May 07, 2025 5:42 am chest pain May 19, 2025 6:5 5am Additional Source Comments Source Comments (unrecognize d section and content) In the event this informatio n is protected by the Federal Confidentiality of Alcohol and Drug Abuse Patient Records regulations: The Federal rules restrict any use of the information to criminally investigate or prosecute any alcohol or drug abuse patient.[facility] Reason for Visit (unrecogniz ed section and content) Reason Comments Chest Congestion cough, seen in [facility] last night, given work excuse for yesterday, still not feeling well requesting work excuse for today Specialty Diagnoses / Procedures Referred By Contac t Referred To Contact [facility] Diagnoses cough, chest congestion needs work note Procedures EST SAME DAY [facility] [address] [place] [address] Referral ID Status Reason Start Date Expiration Date Visits Requested Visits Authorized [id number] New Request Financial Clearance Required - Self Pay 07/02/2024 09/30/2024 1 1 (unrecognized sect ion and content) No Status Records FoundNo Status Records FoundNo Status Records FoundNo Status Records Found INFORMATION SOURCE (unrecogn ized section and content) DATE CREATED AUTHOR 07/04/2024 [facility] DATE CREATED AUTHOR AUTHOR'S ORGANIZ ATION 08/11/2024 [facility] DATE CREATED AUTHOR AUTHOR'S ORGANIZ ATION 11/04/2024 [facility] DATE CREATED AUTHOR AUTHOR'S ORGANIZ ATION 05/29/2025 [facility] Patient Care team informatio n (unrecognized section and content) Team Status: Active Member Role Status Dates No Primary Care Physician Primary Care Provider Active Team Status: Inactive Member Role Status Dates Dr. Alan Parker DO Emergency Provider Active Start: April 08, 2025 End: April 08, 2025 No Primary Care Physician Primary Care Provider Active Start: April 08, 2025 End: April 08, 2025 Team Status: Active Member Role/Relationship Status Dates No Primary Care Physician Primary Care Provider Active Team Status: Inactive Member Role/Relationship Status Dates Dr. Alan Parker DO Attending Provider Active Start: April 08, 2025 End: April 08, 2025 Dr. Alan Parker DO Emergency Provider Active Start: April 08, 2025 End: April 08, 2025 No Primary Care Physician Primary Care Provider Active Start: April 08, 2025 End: April 08, 2025 Team Status: Inactive Member Role/Relationship Status Dates No Primary Care Physician Primary Care Provider Active Start: May 07, 2025 End: May 07, 2025 Dr. Willis Fernandez , DO Emergency Provider Active Start: May 07, 2025 End: May 07, 2025 Team Status: Inactive Member Role/Relationship Status Dates No Primary Care Physician Primary Care Provider Active Start: May 07, 2025 End: May 07, 2025 Dr. Willis Fernandez , DO Attending Provider Active Start: May 07, 2025 End: May 07, 2025 Dr. Willis Fernandez , Emergency Provider Active Start: May 07, 2025 End: May 07, 2025 Team Status: Inactive Member Role/Relationship Status Dates No Primary Care Physician Primary Care Provider Active Start: May 19, 2025 End: May 19, 2025 Dr. Arnaud Hernandez , DO Emergency Provider Active S tart: May 19, 2025 End: May 19, 2025 Goals (unrecognized section and content) Goals [...] BE BASED ON THE PRIMARY CLINICAL RECORDS. [facility] [employer] [facility]. provides no warranty or guarantee of the accuracy or completeness of information in this document.
[2025-06-10 08:26] LABS: Anion Gap 8 (5-15); BUN 14 mg/dL (4-19); BUN/Creat Ratio 15.4 RATIO (10-20); Calcium,Total 8.8 mg/dL (7.6-11.0); Carbon Dioxide 26.5 mmol/L (21.0-32.0); Chloride 105 mmol/L (98-108); Estimated Creatinine Clearance 103.65 ml/min (50-250); Glucose 86 mg/dL (70-99); Potassium 4.8 mmol/L (3.3-5.1)
[2025-06-10 08:45] VITALS: BP 112/68; PULSE 46
[2025-06-10 09:31] VITALS: BP 116/61; PULSE 68; RESP 17; TEMP 37; O2SAT 100
== END 2025-06-10 09:34 | disposition home or self-care (01) ==
PROVIDERS: Emergency Provider Emergency Medicine; Visit Provider Emergency Medicine
DX: B34.9 Viral infection, unspecified (principal); R53.83 Other fatigue; F17.210 Nicotine dependence, cigarettes, uncomplicated; J34.89 Other specified disorders of nose and nasal sinuses
CPT/HCPCS: 71046; 80048; 85025; 87631; 96360; 99285; A4216